=== PATIENT | female | born 1995 | race Caucasian/White ===

== ENCOUNTER 2024-09-04 09:22 | Emergency (ER) | payer MEDICARE, MEDICAID, SELFPAY ==
--- NOTE | 2024-09-04 09:23 | ED.EXTPRO ---
HPI - Extremity Problem General Chief complaint: Extremity Injury, Upper Stated complaint: pain in both wrist Time Seen by Provider: 09/04/24 09:23 Source: patient Mode of arrival: ambulatory Limitations: no limitations History of Present Illness HPI Narrative: Cherelle is a 29-year-old female patient presenting to the clinic today with complaints of bilateral wrist pain x2 days. She reports has a appointment with behavioral geneticist next Monday for the 1st time. States she is being worked up for rheumatoid arthritis. Today he she states that she has had bilateral wrist pain right greater than left starting on Monday. Has pain and swelling to the right wrist. No injury. Is disabled and and just started a new job. Denies any radiation of pain up the arm or in the hand. Rates the pain currently an 11/17. Has not taken anything for her symptoms Related Data Home Medications ?Medication ?Instructions ?Recorded ?Confirmed ?Last Taken ?Type buspirone 10 mg tablet mg 09/04/24 Unknown History duloxetine 20 mg capsule,delayed mg PO 09/04/24 Unknown History release lisinopril 5 mg PO DAILY 09/04/24 Unknown History loratadine 10 mg tablet (Allergy 10 mg PO DAILY 09/04/24 Unknown History Relief (loratadine)) rizatriptan 10 mg disintegrating mg 09/04/24 Unknown History tablet rosuvastatin 5 mg tablet mg 09/04/24 Unknown History semaglutide 0.25 mg or 0.5 mg (2 mg subcut 09/04/24 Unknown History mg/3 mL) subcutaneous pen injector (Ozempic) trazodone 50 mg tablet mg 09/04/24 Unknown History Allergies Allergy/AdvReac Type Severity Reaction Status Date / Time adhesive Allergy Mild Rash Verified 09/04/24 09:46 amoxicillin (From Augmentin) Allergy Mild Rash Verified 09/04/24 09:46 atorvastatin Allergy Mild Rash Verified 09/04/24 09:46 clavulanic acid (From Allergy Mild Rash Verified 09/04/24 09:46 Augmentin) latex Allergy Mild Rash Verified 09/04/24 09:46 clonidine AdvReac Mild Hypotension Verified 09/04/24 09:46 prazosin AdvReac Mild Hypotension Verified 09/04/24 09:46 Review of Systems Review of Systems: Pertinent positives per HPI. Patient denies any fever, chills, rash, headache, visual changes, dizziness, cough, shortness of breath, chest pain, palpitations, nausea, vomiting, diarrhea, constipation, abdominal pain, or any urinary issues. PMFSH Comments At the time of my signature, I reviewed and agree with the nursing past medical, surgical, social, and family history. There is no relevant family history pertinent to the patient complaint. Exam Narrative: General: Well-developed, well nourished, in no apparent distress Head: Normocephalic, atraumatic. Cardio: Regular rate and rhythm, s1 and s2 normal, no murmur appreciated. Resp: Clear to auscultation bilaterally, no rhonchi, rales, wheezing or rubs. Musculoskeletal: No deformity, tender to palpation over dorsal/volar bilateral wrist, worse on the right, range of motion of the right wrist very limited due to pain, positive Tinel's on the ulnar nerve to the right wrist, left wrist range of motion grossly normal, muscle strength strong and equal, peripheral pulse strong, no edema, no cyanosis, normal gait and station Course Course Emergency Course: Portions of this record may have been created with voice recognition software. Level of Care: Express Care Visit Vital Signs Vital signs: Vital Signs Temperature 36.3 C L 09/04/24 09:35 Pulse Rate 88 09/04/24 09:35 Respiratory Rate 18 09/04/24 09:35 Blood Pressure 118/81 09/04/24 09:35 Pulse Oximetry 100 09/04/24 09:35 Oxygen Delivery Room Air 09/04/24 09:35 Temperature 36.3 C L 09/04/24 09:35 Pulse Rate 88 09/04/24 09:35 Respiratory Rate 18 09/04/24 09:35 Blood Pressure 118/81 09/04/24 09:35 Pulse Oximetry 100 09/04/24 09:35 Oxygen Delivery Room Air 09/04/24 09:35 Vital signs reviewed MDM - Extremity (Nontraumatic) MDM Narrative Medical decision making narrative: At the time of visit patient is resting comfortably on the exam table. Patient appears to be nontoxic. Plan: I suspect patient has wrist tendinitis versus arthralgia of the wrist. Prescription for Medrol Dosepak was sent to the pharmacy. Supportive measures were discussed with the patient and they voiced understanding discharge instructions and agrees to treatment plan. Return precautions reviewed Differential Diagnosis Differential diagnosis: Likely gout and other (Tendinitis, arthralgia, carpal tunnel) Discharge Plan Discharge Clinical Impression: Acute pain of both wrists Patient Disposition: Home Condition: Stable Instructions: Antibiotic Form, Arthralgia (ED) Additional Instructions: Rest, ice, elevate, and wear cock-up wrist splint as discussed Tylenol/motrin for pain as discussed. May take Medrol Dosepak as prescribed May apply Aspercreme, blue emu, or lidocaine to the affected area to help alleviate pain Follow up with your PCP if symptoms persist more than 1 week. Patient Language: Croatian Prescriptions: New methylprednisolone [Medrol (Barry)] 4 mg tablets,dose pack See Rx Instructions PO .COMPLEX Qty: 21 0RF Rx Instructions: orally per package directions Follow-up/Referrals: Alfonso,Dima Hoang DO [Primary Care Provider] - Time of Disposition: 09:45 Quality NIHSS Nursing Documentation ED NIHSS nursing documentation: reviewed/agree
[2024-09-04 09:35] VITALS: BP 118/81; PULSE 88; RESP 18; TEMP 36.3; O2SAT 100
== END 2024-09-04 10:00 | disposition home or self-care (01) ==
PROVIDERS: Emergency Provider Nurse Practitioner Family; PCP Family Medicine
DX: M25.531 Pain in right wrist (principal); M25.532 Pain in left wrist; I10 Essential (primary) hypertension; E78.00 Pure hypercholesterolemia, unspecified; J45.909 Unspecified asthma, uncomplicated; K21.9 Gastro-esophageal reflux disease without esophagitis; M19.90 Unspecified osteoarthritis, unspecified site; E28.2 Polycystic ovarian syndrome
CPT/HCPCS: 99203; G0463

== ENCOUNTER 2024-09-18 11:37 | Outpatient (CLI) | payer MEDICARE, MEDICAID, SELFPAY ==
--- OUTSIDE RECORDS SUMMARY | 2024-09-18 13:55 | XMS_ITS | Clinical Summary ---
Author Organization [facility] Address [address] [place] [address] Care Team Providers Care Workers' Compensation Claims Supervisor Name Role Phone Unavailable Primary Care Provider Unavailabl e Allergies Active Allergy Reactions Criticality Noted Date Comments Adhesive Rash Low 01/12/2022 Amoxicillin-Pot Clavulanate Rash Medium 01/13/20 22 Clonidine Confusion Medium 01/12/2022 Latex Rash Low 01/12/2022 Prazosin Hypotension Medium 01/12/2022 Medications albuterol sulfate 90 mcg/actuation aero powdr breath act w/sensor daily. 12/15/2021 Active loratadine (CLARITIN ORAL) daily. 08/10/2021 Act clay flash glucose scanning reader ([employer] 14 Day [place]) Misc daily. 07/13/2021 Active busPIRone (BUSPAR) 30 mg Tablet 2 times daily. 01/10/2022 Active lamoTRIgine 25 mg tablet Take 25 mg by mouth daily. Active metoprolol succinate (Toprol XL) 25 mg Extended Release 24 hour tablet Take 1 Tablet (25 mg) by mouth daily. 30 Tablet 5 03/28/2022 Active cariprazine (Vraylar) 4.5 mg Capsule capsule Take by mouth daily. Active Active Problems No known active problems Immunizations Immunization Administration Dates Next Due ([employer])(12 YR UP) COVID-19 VACCINE - EMERGENCY USE AUTHORIZATION, MRNA, [id number](PF) 30 MCG/0.3 ML IM SUSP 04/10/2021,10/24/2020 Family History Medical History Relation Name Comments Heart Disease Maternal Grandfather CAD Heart Disease Maternal Grandmother CAD Heart Disease Mother afib, SVT Relation Name Status Comments Maternal Grandfather Maternal Grandmother Mother Alive Social History Tobacco Use Types Packs/Day Years Used Date Smoking Tobacco: Former Cigarettes Tobacco Cessation:Counseling Given: Not Answered Comments No Sex and Gender Information Value Date Recorded Sex Assigned at Female 06/27/2023 10:26 AM CDT Legal Sex Female 11:19 PM CDT Gender Identity Female 06/27/2023 10:26 AM CDT Sexual Orientation Lesbian or Michel 06/27/2023 10 :26 AM CDT Last Filed Vital Signs Vital Sign Reading Time Taken Comments Blood Pressure 128/84 06/09/2022 4:35 PM [employer] Pulse 82 06/09/2022 4:35 PM [employer] Temperature 36.7 C (98 F) 02/18/2022 8:16 AM [employer] Respiratory Rate 20 02/18/2022 8:16 AM [employer] Oxygen Saturation 98% 02/18/2022 8:16 AM [employer] Inhaled Oxygen Concentration - - Weight 115 kg (253 lb 9.6 oz) 06/09/2022 4:35 PM [employer] Height 170.2 cm (5' 7) 06/09/2022 4:35 PM [employer] Body Mass Index 39.72 06/09/2022 4:35 PM [employer]ANT Plan of Treatment Health Maintenance Due Date Last Done Comments DIABETES ANNUAL FOOT EXAM 2014 DIABETES ANNUAL RETINAL EXAM 2014 DIABETES MICROALBUMIN ANNUAL SCREEN 2014 LDL CHOLESTEROL ANNUAL 2014 CERVICAL CANCER SCREENING 2017 HPV/Cotest (21-29) 2017 PAP SMEAR 2017 DTAP/TDAP/TD VACCINES (7 - T d or Tdap) 11/18/2017 11/19/2007, 05/14/2001, 09/15/1997, Additional history exists DIABETES HBA1C Q 6 MONTHS 01/12/2022 07/13/2021 INFLUENZA VACCINE (#1) 2023 04/20/2022 COVID-19 Vaccine (2023-2 5 season) 2023 04/10/2021, 10/24/2020 HEPATITIS B VACCINES Completed 06/23/1997, 1996, 1996, Additional history exists HPV VACCINES Completed 09/16/2008, 11/19/2007 Insurance [facility] MEDICAID [place]
--- OUTSIDE RECORDS SUMMARY | 2024-09-18 13:55 | XMS_ITS | Clinical Summary ---
Author Organization [facility] er Address [address] [place] [address] Care Team Providers Care Wood Heel Finisher Name Role Phone Dima Hamilton DO Primary Care Provider Allergies Active Allergy Reactions Criticality Noted Date Comments Adhesive Rash Medium 01/12/2022 Amoxicillin-Pot Clavulanate Atorvastatin Rash Medium 07/18/2024 Clonidine Hypotension High 03/14/2022 Latex Unknown 09/27/2022 Prazosin Hypotension High 03/14/2022 Piperacillin-Tazobactam Rash Medium 11/12/2023 Medications loratadine (Claritin) 10 mg tablet Take 1 tablet (10 mg total) by mouth daily 90 tablet 3 01/13/20 23 Active lisinopriL (PRINIVIL,ZESTRIL) 5 mg tabletIndications: Type 2 diabetes mellitus without complication, without long-term current use of insulin (HCC) TAKE 1 TABLET(5 MG) BY MOUTH DAILY 90 tablet 1 03/11/20 24 Active semaglutide (OZEMPIC) 0.25 mg or 0.5 mg (2 mg/3 mL) pen injector injectionIndicatio ns:Type 2 diabetes mellitus with other specified complication, without long-term current use of insulin (HCC) Inject 0.25 mg under the skin every 7 days 3 mL 2 06/28/19 25 Active rizatriptan WHEEL AND CASTER REPAIRER (MAXALT-WHEEL AND CASTER REPAIRER) 10 mg disintegrating tabletIndications: Migraine without aura and without status migrainosus, not intractable DISSOLVE 1 TABLET(10 MG) ON THE TONGUE 1 TIME NEEDED FOR MIGRAINE. MAY REPEAT IN 2 HOURS IF UNRESOLVED. DO NOT EXCEED 30 MG IN 24 HOURS 9 tablet 1 07/09/19 25 Active busPIRone (BUSPAR) 10 mg tablet Take 1 tablet (10 mg total) by mouth 2 (two) times a day 08/10/19 25 Active rosuvastatin (CRESTOR) 5 mg tablet Take 1 tablet (5 mg total) by mouth daily Active DULoxetine DR (CYMBALTA) 20 mg capsule Take 1 capsule (20 mg total) by mouth daily Active traZODone (DESYREL) 50 mg tablet Take 1 tablet (50 mg total) by mouth nightly Active semaglutide (OZEMPIC) 0.25 mg or 0.5 mg(2 mg/1.5 mL) pen injector injection Inject 0.25 mg under the skin every 7 days Active hydroxychloroquine (PLAQUENIL) 200 mg tablet Take 2 tablets (400 mg total) by mouth daily 180 tablet 1 09/16/19 25 025 Active flash glucose scanning reader (FreeStyle Aidan 14 Day [place]) miscIndications:Ty pe 2 diabetes mellitus without complication, without long-term current use of insulin (HCC) Inject 1 each under the skin daily 2 each 1 10/18/19 23 025 Discontin ued(Patie nt Reported) Qelbree 200 mg capsule,extended release 24hr Take 1 capsule (200 mg total) by mouth daily 06/14/19 24 025 Discontin ued(Patie nt Reported) QUEtiapine XR (SEROquel XR) 50 mg tablet extended release 24 hr Take 1 tablet (50 mg total) by mouth daily 025 Discontin ued(Patie nt Reported) FreeStyle Aidan 14 Day Sensor kitIndications:Typ e 2 diabetes mellitus without complication, without long-term current use of insulin (HCC) Inject 1 each under the skin every 14 (fourteen) days 2 kit 11/06/19 24 025 Discontin ued(Patie nt Reported) blood-glucose meter,continuous (FreeStyle Aidan 3 [place]) misc Use to check blood sugars up to three times daily 1 each 11/07/19 24 025 Discontin ued(Patie nt Reported) albuterol HFA (ProAir HFA) 90 mcg/actuation inhaler Inhale 2 puffs every 4 (four) hours as needed for wheezing or shortness of breath 18 g 03/26/20 24 025 Discontin ued(Patie nt Reported) albuterol 2.5 mg /3 mL (0.083 %) nebulizer solution Take 3 mL (2.5 mg total) by nebulization every 6 (six) hours as needed for wheezing 75 mL 06/07/19 25 025 Discontin ued(Patie nt Reported) blood-glucose sensor (Epicsell Aidan 3 Plus Sensor) device USE TO CHECK BLOOD SUGAR AND CHANGE EVERY 15 DAYS DIRECTED 3 each 1 06/28/19 25 025 Discontin ued(Patie nt Reported) busPIRone (BUSPAR) 15 mg tablet Take 1 tablet (15 mg total) by mouth 2 (two) times a day 06/07/19 25 025 Discontin ued(Patie nt Reported) celecoxib (CeleBREX) 100 mg capsule TAKE 1 CAPSULE(100 MG) BY MOUTH TWICE DAILY 180 capsule 1 06/29/19 25 025 Discontin ued(Patie nt Reported) viloxazine (Qelbree) 100 mg capsule,extended release 24hr Take 100 mg by mouth daily Take with 200 mg to total 300 025 Discontin ued(Patie nt Reported) predniSONE (DELTASONE) 20 mg tablet Take 1 tablet (20 mg) by mouth daily 5 tablet 08/09/19 25 025 Discontin ued(Patie nt Reported) meloxicam (MOBIC) 7.5 mg tabletIndications: Pain of toe of left foot,Acute right ankle pain,Right foot pain,Chronic bilateral low back pain without sciatica Take 1 tablet (7.5 mg total) by mouth 2 (two) times a day as needed for pain 60 tablet 1 08/13/19 25 025 Discontin ued(Patie nt Reported) indomethacin (INDOCIN) 25 mg capsule Take 1 capsule (25 mg total) by mouth 3 (three) times a day as needed for pain (pain) 30 capsule 08/29/19 25 025 Discontin ued(Patie nt Reported) Active Problems Problem Noted Date Diagnosed Date Chronic bilateral low back pain without sciatica 12/07/2023 Mixed hyperlipidemia 10/24/2022 Overview (06/27/2024): Chronic, stable condition Did not tolerate Lipitor Start lower dose Crestor (June 2024) Moderate episode of recurrent major depressive d isorder 10/17/2022 Overview (11/06/2023): Condition followed by Psychiatry is overall stable Continue same medications Generalized anxiety disorder 10/17/2022 Overview (11/06/2023): Chronic condition followed by Psychiatry is overall stable Continue same medications DDD (degenerative disc disease), lumbar 10/18/19 23 Overview (12/07/2023): Chronic low back pain Completed physical therapy Assessment & Plan (12/07/2023 9:01 AM CDT): MRI scheduled for late December 2023 Assessment & Plan (10/17/2022 3:09 PM CDT): Has completed physical therapy in the past. Recommend referral to pain management for further evaluation. Has appointment with Neurology in . Discussed with patient risk of long-term use of meloxicam. May utilize baclofen as needed. May also utilize [id number] icy Hot with lidocaine patches. Borderline personality disorder 10/17/2022 Type 2 diabetes mellitus 10/17/2022 Overview (07/15/2024): Diabetes not requiring insulin with morbid obesity (BMI 38) and microalbuminuria She is on an ERICK-I A1c 7.0 in October 2022 A1c 9.5 in June 2024 Eye exam early 2023 Try Ozempic (June 2024) Assessment & Plan (10/17/2022 3:17 PM CDT): Continue metformin however will add Ozempic 0.25 mg every 7 days. This may help with weight loss which may also help with patient's back pain. Patient up-to-date on diabetic eye exam. Will fax for records release. Declines diabetic foot exam today. Patient will follow-up in 3 months for further evaluation and treatment Spondylosis, lumbosacral 10/17/2022 Overview (12/07/2023): Chronic low back pain Assessment & Plan (12/07/2023 9:01 AM CDT): MRI scheduled late December 2023 Vitamin D deficiency 10/17/2022 Overview (11/06/2023): Chronic, stable condition on replacing Continue same medications Morbid obesity 10/17/2022 Overview (07/15/2024): BMI 36 with DM, dyslipidemia Weight management discussed Assessment & Plan (10/17/2022 2:47 PM CDT): BMI Follow-up includes: education provided. PCOS (polycystic ovarian syndrome) 08/18/2008 Benign essential hypertension 08/18/2008 Overview (11/06/2023): Doing well not requiring medication at this time Assessment & Plan (10/17/2022 3:09 PM CDT): No recent noted hypertension. Patient will possibly need to started on lisinopril 2.5 mg daily for renal protection against diabetes. Resolved Problems Problem Noted Date Diagnosed Date Resolved Date Routine physical examination 11/08/2023 09/11/2024 Overview (11/08/2023): New: November 06, 2023 Encounters Date Type Department Care Team Description 09/16/2024 ACO Quality [facility] Accountable Care Organization [address] [place] [id number] Kristin Burciaga 09/16/[address] [address] Kristin Burciaga Chart Review (error) 09/12/2024 Telephone [facility] Primary Care [address] [place] [address] [address] [place] [phone] Dima Hamilton, Referral Request 09/10/2024 4:20 PM CDT Lab [facility] [address] [address] [id number] Pain in both hands 09/10/2024 3:51 PM CDT - 09/10/2024 11:59 PM CDT Hospital Encounter [facility] Imaging [address] [address] [id number] Pain in both hands Discharge Disposition: Discharge to home or self care 09/10/2024 3:20 PM CDT Office Visit [facility] Rheumatology [address] [facility] Medical Office Building [address] [place] [phone] Rachel Hirsch, LAURA Pain in both hands; Elevated sed rate 08/19/2024 11:00 AM CDT Therapy [facility] Medical Office Bldg 1 OP Occupational Therapy [address] [place] [address] [address] [place] [address] Ade Eric OT Pain in both hands (Primary Dx); Sensory processing difficulty 08/19/2024 Telephone [facility] Primary Care [address] [place] [address] [address] [place] [phone] Dima Hamilton, Insurance Referrals 08/13/2024 1:00 PM CDT Clinical Support [facility] Nutrition Counsel[facility] [address] [place] [address] Type 2 diabetes mellitus with other specified complication, without long-term current use of insulin (HCC) (Primary Dx) 08/12/2024 11:15 AM CDT Office Visit [facility] Primary Care [address] [place] [address] [address] [place] [address] Dima Hamilton DO Pain of toe of left foot (Primary Dx); Acute right ankle pain; Right foot pain; Chronic bilateral low back pain without sciatica 08/12/2024 10:11 AM CDT - 08/12/2024 11:59 PM CDT Hospital [facility] MOB 1 DIAG IMG [address] [place] [id number] Acute right ankle pain; Right foot pain; Pain of toe of left foot Discharge Disposition: Discharge to home or self care 08/12/2024 Results Follow-Up [facility] Primary [facility] [address] [place] [phone] Dima Hamilton DO XR Ankle Right 3+ Vw 08/07/2024 2:00 PM CDT Therapy [facility] Medical Office Bldg 1 OP Occupational Therapy [address] [place] [phone] Yaneth Chong, OT Pain in both hands (Primary Dx); Sensory processing difficulty 08/05/2024 11:00 AM CDT [facility] Medical Office Bldg 1 OP Occupational Therapy [address] [place] [address] Ade Eric, OT Pain in both hands (Primary Dx) 07/29/2024 8:00 AM CDT Therapy [facility] Medical Office Bldg 1 OP Occupational Therapy [address] [place] [phone] Ade Eric, OT Pain in both hands (Primary Dx) 07/24/2024 2:00 PM CDT Therapy [facility] Medical Office Bldg 1 OP Occupational Therapy [address] [place] [address] Ade Eric, OT Pain in both hands (Primary Dx); Sensory processing difficulty 07/23/2024 Results Follow-Up [facility] [address] [place] [phone] Dima Hamilton DO Rheumatoid factor 07/22/2024 12:50 PM CDT Lab [facility] Medical Office Building [address] [place] [address] Pain in both hands; Elevated sed rate 07/22/2024 Letter (Out) [facility] Primary Care [address] [place] [phone] 07/20/2024 Plan of Care Documentation [facility] Medical Office Bldg 1 OP Occupational Therapy [address] [place] [phone] 07/17/2024 1:00 PM CDT Therapy [facility] Medical Office Bldg 1 OP Occupational Therapy [address] [place] [phone] Yaneth Chong OT Pain in both hands; Sensory processing difficulty 07/15/2024 11:00 AM CDT Office Visit [facility] Primary [facility] [address] [place] [phone] Dima Hamilton DO Moderate episode of recurrent major depressive disorder (HCC) (Primary Dx); Generalized anxiety disorder; Benign essential hypertension; Type 2 diabetes mellitus with other specified complication, without long-term current use of insulin (HCC); Morbid obesity (HCC); Mixed hyperlipidemia; Pain in both hands; Sensory processing difficulty 07/15/2024 ACO Medication Access [facility] Accountable Care Organization [address] [place] [address] Catie Cancino CPhT 07/09/2024 3:00 PM CDT - 07/09/2024 11:59 PM CDT Hospital Encounter [facility] Diabetes Educ [address] [place] [address] Type 2 diabetes mellitus with other specified complication, without long-term current use of insulin (HCC) Discharge Disposition: Discharge to home or self care 07/09/2024 Letter (Out) [facility] [address] [place] [phone] 07/01/2024 Telephone [facility] [address] [place] [phone] Dima Hamilton DO 07/01/2024 Telephone [facility] [address] [place] [phone] Dima Hamilton DO 06/27/2024 9:45 AM CDT Office Visit [facility] [address] [place] [phone] Dima Hamilton, Type 2 diabetes mellitus with other specified complication, without long-term current use of insulin (HCC) (Primary Dx); Morbid obesity (HCC); Benign essential hypertension; Mixed hyperlipidemia; Generalized anxiety disorder 06/20/2024 [facility] [address] [address] Sofya Singletary LPN 06/19/2024 9:45 AM CDT Lab [facility] Office Building [address] [place] [phone] Type 2 diabetes mellitus without complication, without long-term current use of insulin (HCC); Mixed hyperlipidemia 06/19/2024 Results Follow-Up [facility] [address] [place] [phone] Dima Hamilton, Hemoglobin A1c, Lipid panel, Comprehensive metabolic panel, Additional followed-up results: 2 06/18/2024 ACO Quality [address] [address] Kristin Burciaga from Last 3 Months Immunizations Immunization Administration Dates Next Due DTP 1996,1996,1996 DTaP 05/14/2001,09/15/1997 DTaP 5 Pertussis 05/14/2001,09/15/1997 HPV, Quadrivalent 09/16/2008,11/19/2007 HPV, Unspecified 09/16/2008,11/19/2007 Hep A, Pediatric 06/27/2003,11/25/2002 Hep B, Unspecified 06/23/1997, 7,1996,05/22 Hib (PRP-T) 09/15/1997, 7,1996,07/22 IPV 05/14/2001 Influenza, Trivalent, Cell Culture-based MDCK, Preservative Free, Antibiotic Free, Intramuscular 05/29/2024 Influenza, Trivalent, IM (MDV) 04/20/2022 Influenza, Unspecified 05/28/2024,2023(Deferred: Patient Refused),04/10/2022,01/28/2010 MMR 05/14/2001,06/23/1997 Meningococcal Conjugate (Menveo) 08/07/2015 Meningococcal MCV4P (Menactra) 08/07/2015 OPV 06/23/1997,1996,1996 PPD TEST 10/04/2022 Tdap 05/29/2024,11/19/2007 Varicella 05/29/2024,04/25/2022,11/25/2002 Surgical History Surgery Date Site/Laterality Comments TYMPANOSTOMY TUBE PLACEMENT TONSILLECTOMY AND ADENOIDECTOMY UPPER GASTROINTESTINAL ENDOSCOPY Medical History Medical History Date Comments PTSD (post-traumatic stress disorder) Polycystic ovary disease Asthma Back pain Spinal stenosis Depression Diabetes mellitus (HCC) Peptic ulceration Menstrual problem Family History Medical History Relation Name Comments Cancer Father Ed Alzheimer's disease Maternal Grandfather Shady Arthritis Maternal Grandfather Shady Cancer Maternal Grandfather Shady Depression Maternal Grandfather Shady Heart disease Maternal Grandfather Shady Hypertension Maternal Grandfather Shady Kidney disease Maternal Grandfather Shady Stroke Maternal Grandfather Shady Arthritis Maternal Grandmother Devorah Asthma Maternal Grandmother Devorah Diabetes Maternal Grandmother Devorah Heart disease Maternal Grandmother Devorah Hypertension Maternal Grandmother Devorah Kidney disease Maternal Grandmother Devorah Miscarriages / Stillbirths Maternal Grandmother Devorah Stroke Maternal Grandmother Devorah Vision loss Maternal Grandmother Devorah Arthritis Mother Lizzie Cancer Mother Lizzie Depression Mother Lizzie Diabetes Mother Lizzie Hearing loss Mother Lizzie Heart disease Mother Lizzie Hypertension Mother Lizzie Kidney disease Mother Lizzie Mental illness Mother Lizzie Miscarriages / Stillbirths Mother Lizzie Obesity Mother Lizzie Rashes / Skin problems Mother Lizzie Stroke Mother Lizzie Cancer Paternal Grandmother Jacqueline Diabetes Paternal Grandmother Jacqueline Stroke Paternal Grandmother Jacqueline Relation Name Status Comments Father Ed Maternal Grandfather Shady Maternal Grandmother Devorah Mother Lizzie Alive Paternal Grandmother Jacqueline Social History Tobacco Use Types Packs/Day Years Used Date Smoking Tobacco: Never Smokeless Tobacco: Never Tobacco Cessation:Counseling Given: Not Answered AUDIT-C Answer Date Recorded Q1: How often do you have a drink containing alc ohol? Monthly or less 09/10/2024 Q2: How many drinks containi ng alcohol do you have on a typical day when you are drinking? 1 or 2 09/10/2024 Q3: How often do you have si x or more drinks on one occasion? Never 09/10/2024 PHQ-2 Answer Date Recorded PHQ-2 Total Score (If total score is 3 or more points, staff should administer the PHQ-9) 6 06/27/2024 PHQ-9 Answer Date Recorded PHQ-9 Total Score 21 06/27/2024 Personal Safety Answer Date Recorded Have you ever been in or are you currently in a harmful physical or emotional relationship or is someone making you feel afraid or unsafe? Denies 06/07/2024 Comments No Sex and Gender Information Value Date Recorded Sex Assigned at Not on file Legal Sex Female 11:04 PM PAYMENT POSTER Gender Identity Female 05/29/2024 7:45 PM PAYMENT POSTER Sexual Orientation Lesbian 05/29/2024 7: 45 PM PAYMENT POSTER Obstetrics History Last Filed Vital Signs Vital Sign Reading Time Taken Comments Blood Pressure 97/65 09/10/2024 3:04 PM CDT Pulse 80 09/10/2024 3:04 PM CDT Temperature 36.4 C (97.6 F) 09/10/2024 3:04 PM CDT Respiratory Rate 18 08/12/2024 10:44 AM CDT Oxygen Saturation 98% 09/10/2024 3:04 PM CDT Inhaled Oxygen Concentration - - Weight 106 kg (233 lb 11.2 oz) 09/10/2024 3:04 P M CDT Height 170.2 cm (5' 7) 09/10/2024 3:04 PM CDT Body Mass Index 36.6 09/10/2024 3:04 PM CDT Plan of Treatment Health Maintenance Due Date Last Done Comments Cervical Cancer Screening 1996 Pneumococcal vaccine <65 (1 of 2 - PCV) 2015 Covid-19 Vaccine (3 - Pfizer risk series) 05/08/2021 04/10/2021, 10/24/2020 Zoster Vaccine (1 of 2) 07/24/2024 Albumin Creatinine Ratio, Urine 11/05/2024 , 10/18/2022 Regular Well Visit/Exam 18-64 11/05/2024 11/06/2023 Hemoglobin A1C 12/20/2024 06/19/2024, 10/09, 10/18/2022 Lipid Panel 06/19/2025 06/19/2024, 10/09, 10/18/2022 Depression Screening 06/27/2025 06/27/2024, 06/27/2024, 11/06/2023, Additional history exists Foot Exam 06/27/2025 06/27/2024 eGFR 09/10/2025 09/10/2024, 06/08, 06/07/2024, Additional history exists Dilated Eye Exam 12/25/2025 12/26/2023 DTaP/Tdap/Td Vaccine (8 - Td or Tdap) 05/29/2034 05/29/2024, 11/19/2007, 05/14/2001, Additional history exists HPV Vaccines Completed 09/16/2008, 12/2008, 11/19/2007, Additional history exists Influenza Vaccine Completed 05/29/2024, , 04/20/2022, Additional history exists Varicella Vaccines Completed 05/29/2024, 0 04/25/2022, 11/25/2002 Hepatitis B Screening Completed 09/10/2024 , 06/23/1997, 1996, Additional history exists Hepatitis C Screening Completed 09/10/2024, 024 Procedures Procedure Name Priority Date/Time Associated Diagnosis Comments XR HAND LEFT 2 VIEWS Schedule Routine, Read Routine (OP Routine) 09/10/2024 3:58 PM CDT Pain in both hands XR HAND RIGHT 2 VIEWS Schedule Routine, Read Routine (OP Routine) 09/10/2024 3:58 PM CDT Pain in both hands EGFR Routine 09/10/2024 3:46 PM CDT Pain in both hands DIFFERENTIAL AUTO Routine 09/10/2024 3:4 6 PM CDT Pain in both hands CYCLIC CITRUL PEPTIDE ANTIBODY, IGG Routine 09/10/2024 3:46 PM CDT Pain in both hands CBC WITH AUTO DIFFERENTIAL Routine 09/10/2024 3:46 PM CDT Pain in both hands COMPREHENSIVE METABOLIC PANEL Routine 09/10/2024 3:46 PM CDT Pain in both hands CRP (ACUTE PHASE) Routine 09/10/2024 3:4 6 PM CDT Pain in both hands ERYTHROCYTE SEDIMENTATION RATE Routine 09/10/2024 3:46 PM CDT Pain in both hands G6PD QUALITATIVE WITH REFLEX TO QUANTITATIVE Routine 09/10/2024 3:46 PM CDT Pain in both hands HEPATITIS PANEL, ACUTE Routine 09/10/2024 3:46 PM CDT Pain in both hands XR ANKLE RIGHT 3 OR MORE VIEWS Schedule LAURO, Read LAURO (Appt Today, Awaiting Results) 08/12/2024 11:00 AM CDT Acute right ankle pain Right foot pain XR FOOT LEFT 3 OR MORE VIEWS Schedule LAURO, Read LAURO (Appt Today, Awaiting Results) 08/12/2024 11:00 AM CDT Pain of toe of left foot XR FOOT RIGHT 3 OR MORE VIEWS Schedule LAURO, Read LAURO (Appt Today, Awaiting Results) 08/12/2024 11:00 AM CDT Acute right ankle pain Right foot pain RHEUMATOID FACTOR Routine 07/22/2024 12:52 PM CDT Pain in both hands Elevated sed rate EGFR Routine 06/19/2024 9:54 AM CDT Type 2 diabetes mellitus without complication, without long-term current use of insulin (HCC) Mixed hyperlipidemia CHOLESTEROL, LDL, DIRECT Routine 06/19/2024 9:54 AM CDT Mixed hyperlipidemia COMPREHENSIVE METABOLIC PANEL Routine 06/19/2024 9:54 AM CDT Type 2 diabetes mellitus without complication, without long-term current use of insulin (HCC) Mixed hyperlipidemia LIPID PANEL Routine 06/19/2024 9:54 AM CDT Mixed hyperlipidemia HEMOGLOBIN A1C Routine 06/19/2024 9:54 AM CDT Type 2 diabetes mellitus without complication, without long-term current use of insulin (HCC) DIABETIC EYE EXAM Routine 12/26/2023 ALBUMIN CREATININE RATIO, URINE Routine 11/06/2023 10:16 AM CDT Type 2 diabetes mellitus with other specified complication, without long-term current use of insulin (HCC) from Last 3 Months or Most Recently Relevant to Health Maintenance Results * XR Hand Right 2 Views (09/10/2024 3:58 PM CDT) Anatomical Region Laterality Modality Upper Extremities, Hand Right Computed Radiography 09/10/2024 4:13 PM CDT Impressions 09/10/2024 4:13 PM CDT 1. Questionable mild periarticular osteopenia involving the bilateral 2nd through 5th MCP and PIP joints is nonspecific but can be seen in inflammatory arthritis. 2. Otherwise, no joint space narrowing or osseous erosions. Electronically signed by: Boogie Amaya D.O. Narrative 09/10/2024 4:13 PM CDT EXAMINATION: XR HAND RIGHT 2 VIEWS, XR HAND LEFT 2 VIEWS HISTORY: pain COMPARISON: None FINDINGS: No acute fracture or dislocation. The joint spaces are preserved. Questionable mild periarticular osteopenia involving the bilateral 2nd through 5th metacarpophalangeal and proximal interphalangeal joints. No discrete osseous erosions. Procedure Note Boogie Amaya DO - 09/10/2024 EXAMINATION: XR HAND RIGHT 2 VIEWS, XR HAND LEFT 2 VIEWS HISTORY: pain COMPARISON: None FINDINGS: No acute fracture or dislocation. The joint spaces are preserved. Questionable mild periarticular osteopenia involving the bilateral 2nd through 5th metacarpophalangeal and proximal interphalangeal joints. No discrete osseous erosions. IMPRESSION: 1. Questionable mild periarticular osteopenia involving the bilateral 2nd through 5th MCP and PIP joints is nonspecific but can be seen in inflammatory arthritis. 2. Otherwise, no joint space narrowing or osseous erosions. Electronically signed by: Boogie Amaya D.O. us Rachel Hirsch NP IMG XR PROCEDURES Final Result * XR Hand Left 2 Views (09/10/2024 3:58 PM CDT) Anatomical Region Laterality Modality Upper Extremities, Hand Left Computed Radiography 09/10/2024 4:13 PM CDT Impressions 09/10/2024 4:13 PM CDT 1. Questionable mild periarticular osteopenia involving the bilateral 2nd through 5th MCP and PIP joints is nonspecific but can be seen in inflammatory arthritis. 2. Otherwise, no joint space narrowing or osseous erosions. Electronically signed by: Boogie Amaya D.O. Narrative 09/10/2024 4:13 PM CDT EXAMINATION: XR HAND RIGHT 2 VIEWS, XR HAND LEFT 2 VIEWS HISTORY: pain COMPARISON: None FINDINGS: No acute fracture or dislocation. The joint spaces are preserved. Questionable mild periarticular osteopenia involving the bilateral 2nd through 5th metacarpophalangeal and proximal interphalangeal joints. No discrete osseous erosions. Procedure Note Boogie Amaya DO - 09/10/2024 EXAMINATION: XR HAND RIGHT 2 VIEWS, XR HAND LEFT 2 VIEWS HISTORY: pain COMPARISON: None FINDINGS: No acute fracture or dislocation. The joint spaces are preserved. Questionable mild periarticular osteopenia involving the bilateral 2nd through 5th metacarpophalangeal and proximal interphalangeal joints. No discrete osseous erosions. IMPRESSION: 1. Questionable mild periarticular osteopenia involving the bilateral 2nd through 5th MCP and PIP joints is nonspecific but can be seen in inflammatory arthritis. 2. Otherwise, no joint space narrowing or osseous erosions. Electronically signed by: Boogie Amaya D.O. us Rachel Hirsch NP IMG XR PROCEDURES Final Result * G6PD qualitative with reflex to quantitative (09/10/2024 3:46 PM CDT) G6PD Normal Normal Comment: Interp data: G6PD activity should be interpreted in the context of a patient's hematocrit. Hematocrit < 20% may lead to a falsely deficient result, while hematocrit > 50% may lead to a falsely normal result. Current interpretive data was last revised on 2019. Testing performed by: [facility], [address] [place]., [address] Blood 09/10/2024 3:46 PM CDT 09/10/2024 6:34 PM CDT Rachel Hirsch NP LAB BLOOD ORDERABLES Fi nal Result [facility] [address] [facility]. [place] [address] * eGFR (09/10/2024 3:46 PM CDT) eGFR >90 >=60 mL/min/1. 73 m2 Comment: Interpretive Data Reference Interval Normal >/= 90 mL/min/1.73m2 Mildly decreased* 60 - 89 mL/min/1.73m2 Mildly to moderately decreased 45 - 59 mL/min/1.73m2 Moderately to severely decreased 30 - 44 mL/min/1.73m2 Severely decreased 15 - 29 mL/min/1.73m2 Kidney Failure < 15 mL/min/1.73m2 *Relative to young adult level Estimated glomerular filtration rate is determined by the 2020 CKD-EPI equation recommended by the National Kidney Foundation (A Unifying Approach to GFR Estimation: Recommendations of the NKF-ASK Task Force on Reassessing the Inclusion of Race in Diagnosing Kidney Disease, JASN 2020). The CKD-EPI equation should not be used for patients with unstable renal function and has not been validated in children and those over 70. Current interpretive data was last reviewed 2021. Blood 09/10/2024 3:46 PM CDT 09/10/2024 3:58 PM CDT us Rachel Hirsch PEGGER LAB BLOOD ORDERABLES Fi nal Result DION VALADEZ [address] [address] [place] [address] * (ABNORMAL) Differential, auto (09/10/2024 3:46 PM CDT) Neutrophil abs 6.53(H) 1.50 - 6.50 K/cumm Imm gran abs 0.04 0.00 - 0.10 K/cumm [facility] Lymphocyte abs 2.72 0.80 - 3.30 K/cumm [facility] Monocyte abs 0.55 0.20 - 0.80 K/cumm [facility] Eosinophil abs 0.07 0.00 - 0.50 K/cumm [facility] Basophil abs 0.04 0.00 - 0.10 K/cumm [facility] Neutrophil pct 65.7 % [facility] Comment: Interpretive Data Percent cell count reference ranges are not reported, since discordance with absolute values may lead to misinterpretation of CBC data. Current Interpretive Data was last revised on 2017. Imm gran pct 0.4 % [facility] Comment: Interpretive Data Percent cell count reference ranges are not reported, since discordance with absolute values may lead to misinterpretation of CBC data. Current Interpretive Data was last revised on 2017. Lymphocyte pct 27.3 % [facility]ION [address] Comment: Interpretive Data Percent cell count reference ranges are not reported, since discordance with absolute values may lead to misinterpretation of CBC data. Current Interpretive Data was last revised on 2017. Monocyte pct 5.5 % [address] Comment: Interpretive Data Percent cell count reference ranges are not reported, since discordance with absolute values may lead to misinterpretation of CBC data. Current Interpretive Data was last revised on 2017. Eosinophil pct 0.7 % [facility] Comment: Interpretive Data Percent cell count reference ranges are not reported, since discordance with absolute values may lead to misinterpretation of CBC data. Current Interpretive Data was last revised on 2017. Basophil pct 0.4 % [facility] Comment: Interpretive Data Percent cell count reference ranges are not reported, since discordance with absolute values may lead to misinterpretation of CBC data. Current Interpretive Data was last revised on 2017. Blood 09/10/2024 3:46 PM CDT 09/10/2024 3:58 PM CDT Rachel Hirsch PEGGER LAB BLOOD ORDERABLES Fi nal Result Performing Organization Address [facility]/ZIP Co de Phone Number [facility] [address] [facility] [place] [address] * (ABNORMAL) CBC with auto differential (09/10/2024 3:46 PM CDT) WBC 9.95(H) 3.80 - 9.90 K/cumm Hgb 13.6 11.9 - 15.5 g/dL [facility] Hct 41.4 35.6 - 45.5 % [facility] Plt 284 150 - 400 K/cumm [facility] MPV 11.7 9.1 - 12.[address] [facility] RBC 4.77 3.90 - 5.20 M/cumm [facility] MCV 86.8 81.3 - 96.[address] [address] [facility] MCH 28.5 27.1 - 33.[address] [address] [facility] W[facility] MCHC 32.9 32.3 - 35.7 g/dL [facility] RDW CV 13.2 11.1 - 14.9 % [facility] RDW SD 41.1 35.7 - 48.1 fL [facility] NRBC abs 0.00 0.00 - 0.01 K/cumm [facility] Blood 09/10/2024 3:46 PM CDT 09/10/2024 3:58 PM CDT Rachel Hirsch NP LAB BLOOD ORDERABLES Fi nal Result Performing Organization Address [facility]/ZIP Co de Phone Number [facility] [address] [employer] [address] * (ABNORMAL) Cyclic citrul peptide antibody, IgG (09/10/2024 3:46 PM CDT) Pathologist [facility] CCP Ab >300.0(H) <=2.9 units/mL Comment: Interpretive data Negative: <3 units/mL Positive: > or equal to 3 units/mL Current interpretive data was last revised on 2016. Testing performed by: [facility], [address] [place]., [address] Blood 09/10/2024 3:46 PM CDT 09/10/2024 6:34 PM CDT Rachel Hirsch NP LAB BLOOD ORDERABLES Fi nal Result Performing Organization Address City/State/[facility] Co de Phone Number [facility] [address] [employer] [place] [address] * Hepatitis panel, acute Blood (09/10/2024 3:46 PM CDT) Pathologist [facility] Hep A IgM Nonreactive Nonreactive Comment: Interpretive Data: If Hep A IgM Ab is reported as Equivocal, a new sample should be drawn in two weeks for testing. Current interpretive data was last revised on 19. Testing performed by: [facility], [address] [place] [address]., [id number] Hep B core IgM Nonreactive Nonreactive [facility] Comment: Interpretive Data If HepB Core IgM Ab is reported as Equivocal, a new sample should be drawn in two weeks for testing. Current interpretive data was last revised on 19. Testing performed by: [facility], [address] [place] [address]., [id number] Hep C Ab Nonreactive Nonreactive [facility] Comment: Interpretive Data Nonreactive: Antibodies to HCV not detected. Does NOT exclude the possibility of recent exposure to HCV. Equivocal: Equivocal for HCV antibodies. Supplemental molecular testing will be automatically performed to determine infection status in accordance with current CDC screening recommendations. Reactive: Positive for HCV antibodies. This may represent current or past HCV infection. Supplemental molecular testing will be automatically performed to determine current infection status in accordance with current CDC screening recommendations. Interpretive data was last revised on 2019. Testing performed by: [facility], [address] [place] [address]., [id number] HepBsAg Nonreactive Nonreactive [facility] Comment:Testing performed by : [facility], [address] [place] [address]., [id number] Blood 09/10/2024 3:46 PM CDT 09/10/2024 7:33 PM CDT us Rachel Hirsch NP LAB MICROBIOLOGY - GENE RAL ORDERABLES Final Result Performing Organization Address [facility] de Phone Number [facility] [address] [facility] [address] [place] [address] * (ABNORMAL) Erythrocyte sedimentation rate (09/10/2024 3:46 PM CDT) Erythrocyte sedimentation rate 22(H) 1 - 20 mm/hr Blood 09/10/2024 3:46 PM CDT 09/10/2024 3:58 PM CDT us Rachel Hirsch NP LAB BLOOD ORDERABLES Fi nal Result Performing Organization Address [facility] de Phone Number [facility] [address] [facility] [address] [place] [address] * CRP (acute phase) (09/10/2024 3:46 PM CDT) CRP 3.8 <=10.0 mg/L Blood 09/10/2024 3:46 PM CDT 09/10/2024 3:58 PM CDT us Rachel Hirsch NP LAB BLOOD ORDERABLES Fi nal Result Performing Organization Address [facility] Co de Phone Number [facility] [address] [facility]. [place] [address] * Comprehensive metabolic panel (09/10/2024 3:46 PM CDT) Sodium 141 135 - 145 mmol/L Potassium, pl 4.1 3.3 - 4.9 mmol/L [facility] Chloride 99 97 - 110 mmol/L [facility] CO2 28 22 - 32 mmol/L [facility] Anion gap 14 2 - 15 mmol/L [facility] BUN 15 6 - 25 mg/dL [facility] Creatinine 0.77 0.60 - 1.10 mg/dL [facility] Glucose 183 70 - 199 mg/dL [facility] Comment: Interpretive Data Fasting glucose >/= 126 mg/dl is diagnostic for diabetes. Fasting is defined as no caloric intake for at least 8 hours. Fasting glucose between 100 mg/dl to 125 mg/dl is diagnostic of prediabetes. In a patient with classic symptoms of hyperglycemia or hyperglycemic crisis, a random glucose >/= 200 mg/dl is diagnostic for diabetes. In the absence of unequivocal hyperglycemia, results should be confirmed by repeat testing. The classification and Diagnosis of Diabetes Diabetes Care 202; 46: S19-S40. Current interpretive data was last revised 2022. Calcium 9.7 8.5 - 10.3 mg/dL [facility] Bilirubin, total 0.4 0.1 - 1.2 mg/dL [facility] Protein, pl 7.6 6.5 - 8.5 g/dL [facility] Albumin 4.2 3.5 - 5.0 g/dL [facility] Alk phos 117 40 - 130 Units/L [facility] ALT 42 7 - 45 Units/L [facility] AST 22 10 - 45 Units/L [facility] Blood 09/10/2024 3:46 PM CDT 09/10/2024 3:58 PM CDT Rachel Hirsch PEGGER LAB BLOOD ORDERABLES Fi nal Result Performing Organization Address [facility]/ZIP Co de Phone Number [facility] [address] [facility]. Department [place] [employer] [place] [address] * XR Foot Right 3+ Vw (08/12/2024 11:00 AM CDT) Anatomical Region Laterality Modality Lower Extremities, Foot Right Computed Radiography 08/12/2024 2:43 PM CDT Narrative 08/12/2024 2:47 PM CDT EXAM DESCRIPTION: XR FOOT RIGHT 3 OR MORE VIEWS; XR FOOT LEFT 3 OR MORE VIEWS; XR ANKLE RIGHT 3 OR MORE VIEWS REASON FOR STUDY: R foot/ankle pain Left ankle pain Intermittent increasing right dorsal foot pain radiating into ankle x 2 weeks, no injury FINDINGS: Three views right foot, three views right ankle and three views left foot submitted without comparison. Right foot/ankle: No acute fracture. Mild right ankle osteoarthritis. The mortise is normal. Insertional Achilles tendinopathy with large enthesophyte formation is present. Large plantar heel spur. Mild pes cavus is present. Plantar fascia heterotopic ossification noted. Left foot: No acute fracture. Mild pes cavus. The joint spaces are normal. Large Achilles enthesophyte and plantar heel spur noted. IMPRESSION: Mild right ankle osteoarthritis. Bilateral pes cavus. Large bilateral plantar heel spurs. Insertional right Achilles tendinopathy with large enthesophyte formation. THIS IS AN ELECTRONICALLY VERIFIED FINAL REPORT 08/12/2024 2:47 PM - Electronically signed by Henry Vuong M.D. MF: [email or web address] Report ID: [id number] Reading Location: [id number] Procedure Note Henry Vuong MD - 08/12/2024 EXAM DESCRIPTION: XR FOOT RIGHT 3 OR MORE VIEWS; XR FOOT LEFT 3 OR MORE VIEWS; XR ANKLE RIGHT 3 OR MORE VIEWS REASON FOR STUDY: R foot/ankle pain Left ankle pain Intermittent increasing right dorsal foot pain radiating into ankle x 2weeks, no injury FINDINGS: Three views right foot, three views right ankle and three viewsleft foot submitted without comparison. Right foot/ankle: No acute fracture. Mild right ankle osteoarthritis. The mortise isnormal. Insertional Achilles tendinopathy with large enthesophyte formation is present. Large plantar heel spur. Mild pes cavus is present. Plantarfascia heterotopic ossification noted. Left foot: No acute fracture. Mild pes cavus. The joint spaces are normal. Large Achilles enthesophyte and plantar heel spur noted. IMPRESSION: Mild right ankle osteoarthritis. Bilateral pes cavus. Large bilateral plantar heel spurs. Insertional right Achilles tendinopathy with large enthesophyteformation. THIS IS AN ELECTRONICALLY VERIFIED FINAL REPORT 08/12/2024 2:47 PM - Electronically signed by Henry Vuong M.D. MF: [email or web address] Report ID: [id number] Reading Location: [id number] Dima Hamilton DO IMG XR PROCEDURES Milly l Result * XR Foot Left 3+ Vw (08/12/2024 11:00 AM CDT) Anatomical Region Laterality Modality Lower Extremities, Foot Left Computed Radiography 08/12/2024 2:43 PM CDT Narrative 08/12/2024 2:47 PM CDT EXAM DESCRIPTION: XR FOOT RIGHT 3 OR MORE VIEWS; XR FOOT LEFT 3 OR MORE VIEWS; XR ANKLE RIGHT 3 OR MORE VIEWS REASON FOR STUDY: R foot/ankle pain Left ankle pain Intermittent increasing right dorsal foot pain radiating into ankle x 2 weeks, no injury FINDINGS: Three views right foot, three views right ankle and three views left foot submitted without comparison. Right foot/ankle: No acute fracture. Mild right ankle osteoarthritis. The mortise is normal. Insertional Achilles tendinopathy with large enthesophyte formation is present. Large plantar heel spur. Mild pes cavus is present. Plantar fascia heterotopic ossification noted. Left foot: No acute fracture. Mild pes cavus. The joint spaces are normal. Large Achilles enthesophyte and plantar heel spur noted. IMPRESSION: Mild right ankle osteoarthritis. Bilateral pes cavus. Large bilateral plantar heel spurs. Insertional right Achilles tendinopathy with large enthesophyte formation. THIS IS AN ELECTRONICALLY VERIFIED FINAL REPORT 08/12/2024 2:47 PM - Electronically signed by Henry Vuong M.D. MF: [email or web address] Report ID: [id number] Reading Location: [id number] Procedure Note Henry Vuong MD - 08/12/2024 EXAM DESCRIPTION: XR FOOT RIGHT 3 OR MORE VIEWS; XR FOOT LEFT 3 OR MORE VIEWS; XR ANKLE RIGHT 3 OR MORE VIEWS REASON FOR STUDY: R foot/ankle pain Left ankle pain Intermittent increasing right dorsal foot pain radiating into ankle x 2weeks, no injury FINDINGS: Three views right foot, three views right ankle and three viewsleft foot submitted without comparison. Right foot/ankle: No acute fracture. Mild right ankle osteoarthritis. The mortise isnormal. Insertional Achilles tendinopathy with large enthesophyte formation is present. Large plantar heel spur. Mild pes cavus is present. Plantarfascia heterotopic ossification noted. Left foot: No acute fracture. Mild pes cavus. The joint spaces are normal. Large Achilles enthesophyte and plantar heel spur noted. IMPRESSION: Mild right ankle osteoarthritis. Bilateral pes cavus. Large bilateral plantar heel spurs. Insertional right Achilles tendinopathy with large enthesophyteformation. THIS IS AN ELECTRONICALLY VERIFIED FINAL REPORT 08/12/2024 2:47 PM - Electronically signed by Henry Vuong M.D. MF: [email or web address] Report ID: [id number] Reading Location: [id number] Dima Hamilton DO IMG XR PROCEDURES Milly l Result * XR Ankle Right 3+ Vw (08/12/2024 11:00 AM CDT) Anatomical Region Laterality Modality Lower Extremities, Ankle Right Compute d Radiography 08/12/2024 2:43 PM CDT Narrative 08/12/2024 2:47 PM CDT EXAM DESCRIPTION: XR FOOT RIGHT 3 OR MORE VIEWS; XR FOOT LEFT 3 OR MORE VIEWS; XR ANKLE RIGHT 3 OR MORE VIEWS REASON FOR STUDY: R foot/ankle pain Left ankle pain Intermittent increasing right dorsal foot pain radiating into ankle x 2 weeks, no injury FINDINGS: Three views right foot, three views right ankle and three views left foot submitted without comparison. Right foot/ankle: No acute fracture. Mild right ankle osteoarthritis. The mortise is normal. Insertional Achilles tendinopathy with large enthesophyte formation is present. Large plantar heel spur. Mild pes cavus is present. Plantar fascia heterotopic ossification noted. Left foot: No acute fracture. Mild pes cavus. The joint spaces are normal. Large Achilles enthesophyte and plantar heel spur noted. IMPRESSION: Mild right ankle osteoarthritis. Bilateral pes cavus. Large bilateral plantar heel spurs. Insertional right Achilles tendinopathy with large enthesophyte formation. THIS IS AN ELECTRONICALLY VERIFIED FINAL REPORT 08/12/2024 2:47 PM - Electronically signed by Henry Vuong M.D. MF: JARETT Report ID: [id number] Reading Location: [id number] Procedure Note Henry Vuong MD - 08/12/2024 EXAM DESCRIPTION: XR FOOT RIGHT 3 OR MORE VIEWS; XR FOOT LEFT 3 OR MORE VIEWS; XR ANKLE RIGHT 3 OR MORE VIEWS REASON FOR STUDY: R foot/ankle pain Left ankle pain Intermittent increasing right dorsal foot pain radiating into ankle x 2weeks, no injury FINDINGS: Three views right foot, three views right ankle and three viewsleft foot submitted without comparison. Right foot/ankle: No acute fracture. Mild right ankle osteoarthritis. The mortise isnormal. Insertional Achilles tendinopathy with large enthesophyte formation is present. Large plantar heel spur. Mild pes cavus is present. Plantarfascia heterotopic ossification noted. Left foot: No acute fracture. Mild pes cavus. The joint spaces are normal. Large Achilles enthesophyte and plantar heel spur noted. IMPRESSION: Mild right ankle osteoarthritis. Bilateral pes cavus. Large bilateral plantar heel spurs. Insertional right Achilles tendinopathy with large enthesophyteformation. THIS IS AN ELECTRONICALLY VERIFIED FINAL REPORT 08/12/2024 2:47 PM - Electronically signed by Henry Vuong M.D. MF: JARETT Report ID: [id number] Reading Location: [id number] Dima Hamilton DO IMG XR PROCEDURES Milly l Result * (ABNORMAL) Rheumatoid factor (07/22/2024 12:52 PM CDT) Rheumatoid factor, quant 54.3(H) <=15.0 IUnits/mL Blood 07/22/2024 12:5 2 PM CDT 07/22/2024 4:55 PM CDT Dima Hamilton DO LAB BLOOD ORDERABLES F inal Result [facility] [address] [facility] Department [place] [address] * eGFR (06/19/2024 9:54 AM CDT) eGFR >90 >=60 mL/min/1. 73 m2 Comment: Interpretive Data Reference Interval Normal >/= 90 mL/min/1.73m2 Mildly decreased* 60 - 89 mL/min/1.73m2 Mildly to moderately decreased 45 - 59 mL/min/1.73m2 Moderately to severely decreased 30 - 44 mL/min/1.73m2 Severely decreased 15 - 29 mL/min/1.73m2 Kidney Failure < 15 mL/min/1.73m2 *Relative to young adult level Estimated glomerular filtration rate is determined by the 2020 CKD-EPI equation recommended by the National Kidney Foundation (A Unifying Approach to GFR Estimation: Recommendations of the NKF-ASK Task Force on Reassessing the Inclusion of Race in Diagnosing Kidney Disease, JASN 202). The CKD-EPI equation should not be used for patients with unstable renal function and has not been validated in children and those over 70. Current interpretive data was last reviewed 2021. Testing performed by: [facility], [address] [place] [address]., [id number] Blood 06/19/2024 9:54 AM CDT 06/19/2024 10:27 AM CDT Dima Loyd Alfonso DO LAB BLOOD ORDERABLES F inal Result Performing Organization Address [facility] de Phone Number DION [address] [facility] [employer] [place] [address] * Cholesterol, LDL, direct (06/19/2024 9:54 AM CDT) LDL Cholesterol, Direct 89 <=129 mg/dL Comment: Interpretive Data Ages < or = 19 years Acceptable: <110 mg/dL Borderline high: 110-129 mg/dL High: >or= 130 mg/dL Ages > or = 20 years Optimal: <100 mg/dL Near optimal: 100-129 mg/dL Borderline high: 130-159 mg/dL High: >160 mg/dL Literature References: 1. Expert Panel on Integrated Guidelines for Cardiovascular Health and Risk Reduction in Children and Adolescents. Pediatrics 2011;128:S213 2. NCEP Expert Panel. Circulation 2004;110:227 Current Interpretive Data was last revised on 2017. Testing performed by: [address] [address] Blood 06/19/2024 9:54 AM CDT 06/19/2024 10:27 AM CDT Narrative DION - 06/19/2024 12:56 PM CDT Cholesterol, LDL, direct reflexed based on Elevated Triglyceride (>400) Dima Evert [facility] LAB BLOOD ORDERABLES F inal Result Performing Organization Address [facility] de Phone Number DION [address] [facility] [employer] [place] [address] * (ABNORMAL) Hemoglobin A1c (06/19/2024 9:54 AM CDT) Hgb A1C 9.5(H) 4.0 - 5.6 % Comment:Testing performed by : [address] [address] Estimated Average Glucose 226 mg/dL DION Comment: The ADA recommends reporting an estimated Average Glucose (eAG) with all Hemoglobin A1c results using the equation derived from a study of 507 normal and diabetic adults. Minority populations were underrepresented and children were not included. (Diabetes Care 31:1731-3581, 2008). The eAG is not equivalent to a fasting glucose. Testing performed by: [facility], [address] [place] [address]., [id number] Blood 06/19/2024 9:54 AM CDT 06/19/2024 10:25 AM CDT us Dima Hamilton DO LAB BLOOD ORDERABLES F inal Result [facility] [address] [facility] Department [place] [address] * (ABNORMAL) Lipid panel (06/19/2024 9:54 AM CDT) Cholesterol 195 30 - 199 mg/dL Comment: Interpretive Data Ages < or = 19 years Acceptable: <170 mg/dL Borderline high: 170-199 mg/dL High: >or= 200 mg/dL Ages > or = 20 years Desirable: <200 mg/dL Borderline high: 200-239 mg/dL High: >or= 240 mg/dL Literature References: 1. Expert Panel on Integrated Guidelines for Cardiovascular Health and Risk Reduction in Children and Adolescents. Pediatrics 2011;128:S213 2. NCEP Expert Panel. Circulation 2004;110:227 Current Interpretive Data was last revised on 2017. Testing performed by: [address] [address] Triglycerides 546(H) <=149 mg/dL DION [facility]KS Comment: Interpretive Data Ages < or = 9 years Acceptable: <75 mg/dL Borderline high: 75-99 mg/dL High: >or= 100 mg/dL Ages 10 to 20 years Acceptable: <90 mg/dL Borderline high: 90-129 mg/dL High: >or= 130 mg/dL Ages > or = 20 years Desirable: <150 mg/dL Borderline high: 150-199 mg/dL High: 200-499 mg/dL Very high: >or= 499 mg/dL Literature References: 1. Expert Panel on Integrated Guidelines for Cardiovascular Health and Risk Reduction in Children and Adolescents. Pediatrics 2011;128:S213 2. NCEP Expert Panel. Circulation 2004;110:227 Current Interpretive Data was last revised on 2017. Testing performed by: [address] [address] HDL 30(L) >=40 mg/dL DION [facility]EEKS Comment: Interpretive Data Ages < or = 19 years Acceptable: >45 mg/dL Borderline low: 40-45 mg/dL Low: <40 mg/dL Ages > or = 20 years Desirable: >or= 60 mg/dL Low: <40 mg/dL Literature References: 1. Expert Panel on Integrated Guidelines for Cardiovascular Health and Risk Reduction in Children and Adolescents. Pediatrics 2011;128:S213 2. NCEP Expert Panel. Circulation 2004;110:227 Current Interpretive Data was last revised on 2017. Testing performed by: [address] [address] LDL, calculated See Comment <=129 mg/dL [facility]ION MEEKS Comment: Unable to calculate due to elevated Triglycerides. Interpretive Data Ages < or = 19 years Acceptable: <110 mg/dL Borderline high: 110-129 mg/dL High: >or= 130 mg/dL Ages > or = 20 years Optimal: <100 mg/dL Near optimal: 100-129 mg/dL Borderline high: 130-159 mg/dL High: >160 mg/dL Calculated using the Ulisses LDL-C estimating equation. This equation was implemented on 2023. Prior to this date LDL-C was estimated using the Friedewald equation. Literature References: 1. Expert Panel on Integrated Guidelines for Cardiovascular Health and Risk Reduction in Children and Adolescents. Pediatrics 2011;128:S213 2. NCEP Expert Panel. Circulation 2004;110:227 3. Ulisses Gibson et al. NARCISA Cardiol. 2020 August 08;5(5):540-548. doi: 10.1001/jamacardio.2020.0013 Current Interpretive Data was last revised on 2023. Testing performed by: [address] [address] Non-HDL Cholesterol 165 mg/dL [facility]ION MEEKS Comment: Interpretive Data Ages < or = 19 years Acceptable: <120 mg/dL Borderline high: 120-144 mg/dL High: >145 mg/dL Ages > or = 20 years When triglycerides are >200 mg/dL, Non-HDL cholesterol is a secondary target of therapy with treatment goals that are 30 mg/dL greater than the LDL cholesterol target. Literature References: 1. Expert Panel on Integrated Guidelines for Cardiovascular Health and Risk Reduction in Children and Adolescents. Pediatrics 2011;128:S213 2. NCEP Expert Panel. Circulation 2004;110:227 Current Interpretive Data was last revised on 2017. Testing performed by: [address] [address] Chol/HDL ratio 6 DION Comment:Testing performed by : [address] [address] Blood 06/19/2024 9:54 AM CDT 06/19/2024 10:27 AM CDT Dima Hamilton LAB BLOOD ORDERABLES F inal Result DION [address] [facility] Department [place] [address] * (ABNORMAL) Comprehensive metabolic panel (06/19/2024 9:54 AM CDT) Sodium 136 135 - 145 mmol/L Comment:Testing performed by : [address] [address] Potassium, pl 4.6 3.3 - 4.9 mmol/L DION Comment:Testing performed by : [address] [address] Chloride 102 97 - 110 mmol/L DION Comment:Testing performed by : [address] [address] CO2 23 22 - 32 mmol/L DION Comment:Testing performed by : [address] [address] Anion gap 11 2 - 15 mmol/L DION Comment:Testing performed by : [address] [address] BUN 15 6 - 25 mg/dL DION Comment:Testing performed by : [address] [address] Creatinine 0.60 0.60 - 1.10 mg/dL DION Comment:Testing performed by : [address] [address] Glucose 284(H) 70 - 199 mg/dL DION Comment: Interpretive Data Fasting glucose >/= 126 mg/dl is diagnostic for diabetes. Fasting is defined as no caloric intake for at least 8 hours. Fasting glucose between 100 mg/dl to 125 mg/dl is diagnostic of prediabetes. In a patient with classic symptoms of hyperglycemia or hyperglycemic crisis, a random glucose >/= 200 mg/dl is diagnostic for diabetes. In the absence of unequivocal hyperglycemia, results should be confirmed by repeat testing. The classification and Diagnosis of Diabetes Diabetes Care 2021; 46: S19-S40. Current interpretive data was last revised 2022. Testing performed by: [address] [address] Calcium 9.7 8.5 - 10.3 mg/dL [facility] Comment:Testing performed by : [address] [address] Bilirubin, total 0.4 0.1 - 1.2 mg/dL [facility] Comment:Testing performed by : [address] [address] Protein, pl 7.8 6.5 - 8.5 g/dL [facility] Comment:Testing performed by : [address] [address] Albumin 3.9 3.5 - 5.0 g/dL [facility] Comment:Testing performed by : [address] [address] Alk phos 151(H) 40 - 130 Units/L [facility] Comment:Testing performed by : [address] [address] ALT 102(H) 7 - 45 Units/L DION Comment:Testing performed by : [address] [address] AST 60(H) 10 - 45 Units/L [facility] Comment:Testing performed by : [address] [address] Blood 06/19/2024 9:54 AM CDT 06/19/2024 10:27 AM CDT Dima Loyd Honey LAB BLOOD ORDERABLES F inal Result Performing Organization Address [facility] Co de Phone Number DION [address] [facility] [address] [place] [address] * Diabetic Eye Exam (12/26/2023) Historical Provider MD HEALTH MAINTENANCE Final Result * (ABNORMAL) Albumin Creatinine Ratio, Urine (11/06/2023 10:16 AM CDT) Albumin Ur 339.5 mg/L Comment: Interpretive Data No reference range established. Current interpretive data was last revised 2018. Testing performed by: [address] [address] Creatinine Ur 111.2 mg/dL DION Comment: Interpretive Data No reference range established. Current interpretive data was last revised 2018. Testing performed by: [address] [address] Albumin Creatinine Ratio, Ur 305(H) 1 - 29 mg/g [facility]ION Comment:Testing performed by : [address] [address] Urine 11/06/2023 10:1 6 AM CDT 11/06/2023 11:52 AM CDT Dima Loyd Honey LAB URINE ORDERABLES F inal Result Performing Organization Address [facility]/ZIP Co de Phone Number DION [address] [facility] [address] [place] [address] from Last 3 Months or Most Recently Relevant to Health Maintenance Insurance [employer] HMO PPO Member Subscriber Plan / Payer (Ef fective 2021-Present) Name:Cherelle Dave Relation to Subscriber:Self Name:Cherelle Dave Payer ID:[id number] (NAIC) Group ID:[id number] Type:MEDICARE RISK OTHER Address: [id number] [facility] IDPA Care Teams Wood Heel Finisher Relationship Specialty [place] [address] [place] [id number] PCP - General Family Medicine 11/06/23
--- OUTSIDE RECORDS SUMMARY | 2024-09-18 13:55 | XMS_ITS | Encounter Summary ---
Author Organization [facility] Healthcare Address [address] [place] [address] Care Team Providers Care Clerical Investigator Name Role Phone Dima Hamilton DO Primary Care Provider Reason for Visit * Reason Onset Date Comments Referral Request 09/12/2024 Encounter Details Date Type Department Care Team ([facility] st Contact Info) Description 09/12/2024 Telephone [facility] Medical Group Primary Care [address] [facility] [address] [place] [address] Dima Hamilton DO [address] [facility] [address] [place] [address] Referral Request Social History Tobacco Use Types Packs/Day Years Used Date Smoking Tobacco: Never Smokeless Tobacco: Never AUDIT-C Answer Date Recorded Q1: How often [...] on file Legal Sex Female 11:04 PM CL[facility] DOFFER Gender Identity Female 05/29/2024 7:45 PM CL[facility] DOFFER Sexual Orientation Lesbian 05/29/2024 7: 45 PM CLOTH DOFFER documented as of this encounter Miscellaneous Notes * Telephone Encounter - Catalina Lozano - 09/12/2024 3:46 PM CDT Spoke with Audi with [facility]. No referral auth required, fax sent * Telephone Encounter - Cristian Bruno - 09/12/2024 3:10 PM CDT Referral Provider Name: LAURA South Specialty: OBGYN Address: [address] [place] [address], Zip: [facility] [address] Diagnosis Code/Symptom/Reason Patient is being seen: Z 01.419 Date of Appointment: 09/18/24 NPI#: [id number] Tax ID#: Not provided Is insurance in chart up to date? Yes Additional Comments: [place] with Dr. South's office called to request insurance authorization to see this patient due to insurance being and HMO. Sending high priority request due to appt appt date. Does message need to be routed? Yes-Action Needed documented in this encounter Plan of Treatment Not on file documented as of this encounter Visit Diagnoses Not on filedocumented in this encounter Care Teams Clerical Investigator Relationship Specialty Start Date End Date Dima Hamilton DO [address] [place] [id number] PCP - General Family Medicine 11/06/23 documented as of this encounter
--- OUTSIDE RECORDS SUMMARY | 2024-09-18 13:55 | XMS_ITS | Referral Summary ---
Author Organization [facility] Address [address] [place] [address] Care Team Providers Care Harvest Worker Name Role Phone Dima Hamilton DO Primary Care Provider Encounters Date Type Department Care Team Description 09/16/2024 ACO Quality [facility] Accountable Care Organization [address] [place] [address] Kristin Burciaga 09/16/[address] [facility] [address] [address] Kristin Burciaga Chart Review (error) 09/12/2024 Telephone [facility] Primary Care [address] [facility] [address] [place] [address] Dima Hamilton DO Referral Request 09/10/2024 3:51 PM CDT - 09/10/2024 11:59 PM CDT Hospital Encounter [facility] [address] ALOTN Galloway [address] Pain in both hands Discharge Disposition: Discharge to home or self care 09/10/2024 4:20 PM CDT Lab [facility] [address] [address] Zayas [address] Pain in both hands 09/10/2024 3:20 PM CDT Office Visit [facility] Rheumatology [address] [facility] Medical Office Building 2 [address] [place] [address] Rachel Hirsch, LAURA Pain in both hands; Elevated sed rate 08/19/2024 Telephone [facility] Primary Care [address] [place] [phone] Dima Hamilton DO Insurance Referrals 08/19/2024 11:00 AM CDT Therapy [facility] Medical Office Bldg 1 OP Occupational Therapy [address] [place] [address] Ade Eric OT Pain in both hands (Primary Dx); Sensory processing difficulty 08/13/2024 1:00 PM CDT Clinical Support [facility] Nutrition Counseling [address] [place] [address] Type 2 diabetes mellitus with other specified complication, without long-term current use of insulin (HCC) (Primary Dx) 08/12/2024 Results Follow-Up [facility] Primary Care [address] [place] [phone] Dima Hamilton DO XR Ankle Right 3+ Vw 08/12/2024 10:11 AM CDT - 08/12/2024 11:59 PM CDT Hospital Encounter [facility] MOB 1 DIAG IMG [address] [place] [address] Acute right ankle pain; Right foot pain; Pain of toe of left foot Discharge Disposition: Discharge to home or self care 08/12/2024 11:15 AM CDT Office Visit [facility] Primary Care [address] [place] [phone] Dima Hamilton DO Pain of toe of left foot (Primary Dx); Acute right ankle pain; Right foot pain; Chronic bilateral low back pain without sciatica 08/07/2024 2:00 PM CDT Therapy [facility] Medical Office Bldg 1 OP Occupational Therapy [address] [place] [address] Chong, Meraux Karen, OT Pain in both hands (Primary Dx); Sensory processing difficulty 08/05/2024 11:00 AM CDT Therapy [facility] Office Bldg 1 OP Occupational Therapy [address] [place] [address] [place] [address] Ade Eric, OT Pain in both hands (Primary Dx) 07/29/2024 8:00 AM CDT Therapy [facility] Medical Office Bl 1 OP Occupational Therapy [address] [place] [address] [place] [address] Ade Eric, OT Pain in both hands (Primary Dx) 07/24/2024 2:00 PM CDT Therapy [facility] Office Bl 1 OP Occupational Therapy [address] [place] [address] [place] [address] Ade Eric, OT Pain in both hands (Primary Dx); Sensory processing difficulty 07/23/2024 Results Follow-Up [facility] Primary Care [address] [place] [phone] Dima Hamilton DO Rheumatoid factor 07/22/2024 Letter (Out) [facility] Primary Care [address] [place] [phone] 07/22/2024 12:50 PM CDT Lab [facility] Building [address] [place] [address] Pain in both hands; Elevated sed rate 07/20/2024 Plan of Care Documentation [facility] Medical Office Bldg 1 OP Occupational Therapy [address] [place] [address] 07/17/2024 1:00 PM CDT Therapy [facility] Office Bl 1 OP Occupational Therapy [address] [place] [address] [place] [address] Yaneth Chong, OT Pain in both hands; Sensory processing difficulty 07/15/[address] [facility] Organization [address] [place] [address] Catie Malone CPhT 07/15/2024 11:00 AM CDT Office Visit [facility] Primary Care [address] [place] [phone] Dima Hamilton DO Moderate episode of recurrent major depressive disorder (HCC) (Primary Dx); Generalized anxiety disorder; Benign essential hypertension; Type 2 diabetes mellitus with other specified complication, without long-term current use of insulin (HCC); Morbid obesity (HCC); Mixed hyperlipidemia; Pain in both hands; Sensory processing difficulty 07/09/2024 Letter (Out) [facility] Primary Care [address] [place] [phone] 07/09/2024 3:00 PM CDT - 07/09/2024 11:59 PM CDT Hospital Encounter [facility] Diabetes Educ [address] [place] [address] Type 2 diabetes mellitus with other specified complication, without long-term current use of insulin (HCC) Discharge Disposition: Discharge to home or self care 07/01/2024 Telephone [facility] Care [address] [place] [phone] Dima Hamilton DO 07/01/2024 Telephone [facility] Care [address] [place] [phone] Dima Hamilton DO 06/27/2024 9:45 AM CDT Office Visit [address] [phone] Dima Hamilton DO Type 2 diabetes mellitus with other specified complication, without long-term current use of insulin (HCC) (Primary Dx); Morbid obesity (HCC); Benign essential hypertension; Mixed hyperlipidemia; Generalized anxiety disorder 06/20/[address] [facility] Organization [address] [place] [address] Sofya Singletary LPN 06/19/2024 Results Follow-Up [facility] Primary Care [address] [facility] [address] [place] [address] Dima Hamilton, Hemoglobin A1c, Lipid panel, Comprehensive metabolic panel, Additional followed-up results: 2 06/19/2024 9:45 AM CDT Lab [facility] Building 1 Lab [address] [place] [address] Type 2 diabetes mellitus without complication, without long-term current use of insulin ([facility]); Mixed hyperlipidemia 06/18/2024 ACO Quality [facility] Accountable Care Organization [address] [place] [address] Kristin Burciaga from Last 3 Months Allergies Active Allergy Reactions Criticality Noted Date [...] complication, without long-term current use of insulin ([facility]) TAKE 1 TABLET(5 MG) BY MOUTH DAILY 90 tablet 1 03/11/20 24 Active semaglutide (OZEMPIC) 0.25 mg or 0.5 mg (2 mg/3 mL) pen injector injectionIndicatio ns:Type 2 diabetes mellitus with other specified complication, without long-term current use of insulin ([facility]) Inject 0.25 mg under the skin every 7 days 3 mL 2 06/28/19 25 Active rizatriptan TRIMMING MACHINE OPERATOR (MAXALT-TRIMMING MACHINE OPERATOR) 10 mg disintegrating tabletIndications: Migraine without aura [...] glucose scanning reader (FreeStyle Aidan 14 Day Florence) miscIndications:Ty pe 2 diabetes mellitus without complication, [...] nt Reported) blood-glucose meter,continuous (FreeStyle Aidan 3 Florence) misc Use to check blood sugars up [...] 025 Discontin ued(Patie nt Reported) blood-glucose sensor (FreeStyle Aidan 3 Plus Sensor) device USE TO [...] medications DDD (degenerative disc disease), lumbar 10/18/19 Overview (12/07/2023): Chronic low back pain Completed [...] utilize baclofen as needed. May also utilize [id number] icy Hot with lidocaine patches. 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 Procedure Note Boogie Amaya, - 09/10/2024 EXAMINATION: XR HAND RIGHT 2 [...] erosions. Electronically signed by: Boogie Amaya D.O. Rachel Hirsch NP IMG XR PROCEDURES Final [...] No discrete osseous erosions. Procedure Note Boogie Amaya, - 09/10/2024 EXAMINATION: XR HAND RIGHT 2 [...] last revised on 2019. Testing performed by: [facility], [address] [facility] [place] [address] Blood 09/10/2024 3:46 PM CDT 09/10/2024 6:34 PM CDT us Rachel Hirsch NP LAB BLOOD ORDERABLES Fi nal Result [facility]JW[facility] [address] [facility]. [place] [address] * eGFR (09/10/2024 3:46 PM CDT) Pathologist [facility] eGFR >90 >=60 mL/min/1. 73 m2 Comment: [...] 09/10/2024 3:58 PM CDT us Rachel Hirsch INSULATION WORKER APPRENTICE LAB BLOOD ORDERABLES Critical access hospital Result [facility] [address] [facility]. [place] [address] * (ABNORMAL) Differential, auto (09/10/2024 3:46 PM CDT) Pathologist [facility] Neutrophil abs 6.53(H) 1.50 - 6.50 K/cumm Imm gran abs 0.04 0.00 - 0.10 K/cumm [facility] Lymphocyte abs 2.72 0.80 - 3.30 K/cumm [facility] Monocyte abs 0.55 0.20 - 0.80 K/cumm [facility] Eosinophil abs 0.07 0.00 - 0.50 K/cumm [facility] Basophil abs 0.04 0.00 - 0.10 K/cumm [facility] Neutrophil pct 65.7 % [facility] Comment: Interpretive Data Percent cell count reference ranges are not reported, since discordance with absolute values may lead to misinterpretation of CBC data. Current Interpretive Data was last revised on 2017. Imm gran pct 0.4 % [facility] [address] Comment: Interpretive Data Percent [...] on 2017. Eosinophil pct 0.7 % [facility] Comment: Interpretive Data Percent cell count reference ranges are not reported, since discordance with absolute values may lead to misinterpretation of CBC data. Current Interpretive Data was last revised on 2017. Basophil pct 0.4 % [facility] [address] Comment: Interpretive Data Percent cell count reference ranges are not reported, since discordance with absolute values may lead to misinterpretation of CBC data. Current Interpretive Data was last revised on 2017. Blood 09/10/2024 3:46 PM CDT 09/10/2024 3:58 PM CDT Rachel Hirsch INSULATION WORKER APPRENTICE LAB BLOOD ORDERABLES Fi nal Result [facility] [address] [facility]. [place] [address] * (ABNORMAL) CBC with auto differential (09/10/2024 3:46 PM CDT) WBC 9.95(H) 3.80 - 9.90 K/cumm Hgb 13.6 11.9 - 15.5 g/dL [facility] Hct 41.4 35.6 - 45.5 % [facility] Plt 284 150 - 400 K/cumm [facility] MPV 11.7 9.1 - 12.3 fL [facility] RBC 4.77 3.90 - 5.20 M/cumm [facility] MCV 86.8 81.3 - 96.4 fL [facility] MCH 28.5 27.1 - 33.3 pg [facility] MCHC 32.9 32.3 - 35.7 g/dL [facility] RDW CV 13.2 11.1 - 14.9 % [facility] RDW SD 41.1 35.7 - 48.1 fL [facility] NRBC abs 0.00 0.00 - 0.01 K/cumm [facility] Blood 09/10/2024 3:46 PM CDT 09/10/2024 3:58 PM CDT Rachel Hirsch INSULATION WORKER APPRENTICE LAB BLOOD ORDERABLES Fi nal Result Performing Organization Address [facility] Co de Phone Number [facility] [address] [place] [address] * (ABNORMAL) Cyclic citrul peptide antibody, IgG (09/10/2024 3:46 PM CDT) [facility] CCP Ab >300.0(H) <=2.9 units/mL Comment: Interpretive data Negative: <3 units/mL Positive: > or equal to 3 units/mL Current interpretive data was last revised on 2016. Testing performed by: [facility], [address] [place]., [address] Blood 09/10/2024 3:46 PM CDT 09/10/2024 6:34 PM CDT Rachel Hirsch INSULATION WORKER APPRENTICE LAB BLOOD ORDERABLES Fi nal Result [facility] [address] [place] [address] * Hepatitis panel, acute Blood (09/10/2024 3:46 PM CDT) Hep A IgM Nonreactive Nonreactive Comment: Interpretive Data: If Hep A IgM Ab is reported as Equivocal, a new sample should be drawn in two weeks for testing. Current interpretive data was last revised on 19. Testing performed by: [facility], [address] [place] [address]., [address] Hep B core IgM Nonreactive Nonreactive [facility] Comment: Interpretive Data If HepB Core IgM Ab is reported as Equivocal, a new sample should be drawn in two weeks for testing. Current interpretive data was last revised on 19. Testing performed by: [facility], [address] [place] [address]., [address] Hep C Ab Nonreactive Nonreactive [facility] Comment: Interpretive Data Nonreactive: Antibodies to HCV [...] last revised on 2019. Testing performed by: [facility], [address] [place] [address]., [address] HepBsAg Nonreactive Nonreactive [facility] Comment:Testing performed by : [facility], [address] [place] [address]., [address] Blood 09/10/2024 3:46 PM CDT 09/10/2024 7:33 PM CDT Rachel Hirsch NP LAB MICROBIOLOGY - GENE RAL ORDERABLES Final Result [facility] [address] [facility]. [place] [address] * (ABNORMAL) Erythrocyte sedimentation rate (09/10/2024 3:46 PM CDT) Pathologist [facility] Erythrocyte sedimentation rate 22(H) 1 - 20 mm/hr Blood 09/10/2024 3:46 PM CDT 09/10/2024 3:58 PM CDT us Rachel Hirsch INSULATION WORKER APPRENTICE LAB BLOOD ORDERABLES Fi nal Result Performing Organization Address [facility] Co de Phone Number DION [facility] [address] [facility] [place] [address] * CRP (acute phase) (09/10/2024 3:46 PM CDT) [facility] CRP 3.8 <=10.0 mg/L Blood 09/10/2024 3:46 PM CDT 09/10/2024 3:58 PM CDT Rachel Hirsch INSULATION WORKER APPRENTICE LAB BLOOD ORDERABLES Fi nal Result Performing Organization Address [facility] de Phone Number [facility] [address] [facility] [place] [address] * Comprehensive metabolic panel (09/10/2024 3:46 PM CDT) [facility] Sodium 141 135 - 145 mmol/L Potassium, pl 4.1 3.3 - 4.9 mmol/L [facility] Chloride 99 97 - 110 mmol/L [facility] CO2 28 22 - 32 mmol/L [facility] Anion gap 14 2 - 15 mmol/L [facility] BUN 15 6 - 25 mg/dL [facility] Creatinine 0.77 0.60 - 1.10 mg/dL [facility] Glucose 183 70 - 199 mg/dL [facility] Comment: Interpretive Data Fasting glucose >/= 126 [...] CDT Rachel Hirsch NP LAB BLOOD ORDERABLES nal Result [facility] [address] [facility]. [place] [address] * XR Foot Right 3+ Vw (08/12/2024 [...] Henry Vuong M.D. MF: JARETT Report ID: [id number] Reading Location: [id number] Procedure Note Henry Vuong MD - 08/12/2024 [...] Henry Vuong M.D. MF: JARETT Report ID: [id number] Reading Location: [id number] Dima Hamilton DO IMG XR PROCEDURES Milly [...] Henry Vuong M.D. MF: JARETT Report ID: [id number] Reading Location: [id number] Procedure Note Henry Vuong MD - 08/12/2024 [...] Henry Vuong M.D. MF: JARETT Report ID: [id number] Reading Location: [id number] Dima Hamilton DO IMG XR PROCEDURES Milly [...] Henry Vuong M.D. MF: JARETT Report ID: [id number] Reading Location: [id number] Procedure Note Henry Vuong MD - 08/12/2024 [...] Henry Vuong M.D. MF: JARETT Report ID: [id number] Reading Location: [id number] Dima Hamilton DO IMG XR PROCEDURES Milly l Result * (ABNORMAL) Rheumatoid factor (07/22/2024 12:52 PM CDT) [facility] Rheumatoid factor, quant 54.3(H) <=15.0 IUnits/mL Blood 07/22/2024 12:5 2 PM CDT 07/22/2024 4:55 PM CDT Dima Hamilton DO LAB BLOOD ORDERABLES F inal Result [facility] [address] [facility] [place] [address] * eGFR (06/19/2024 9:54 AM CDT) eGFR [...] was last reviewed 2021. Testing performed by: [facility], [address] [place] [address]., [address] Blood 06/19/2024 9:54 AM CDT 06/19/2024 10:27 AM CDT Dima Hamilton DO LAB BLOOD ORDERABLES F inal Result [facility] [address] [facility] [place] [address] * Cholesterol, LDL, direct (06/19/2024 9:54 AM [...] last revised on 2017. Testing performed by: [address] [address] Blood 06/19/2024 9:54 AM CDT 06/19/2024 10:27 AM CDT Narrative [facility] - 06/19/2024 12:56 PM CDT Cholesterol, LDL, direct reflexed based on Elevated Triglyceride (>400) [facility] 1d4 [facility] LAB BLOOD ORDERABLES F inal Result Performing Organization Address [facility] Co de Phone Number [address] [employer] [place], [place] [id number] * (ABNORMAL) Hemoglobin A1c (06/19/2024 9:54 AM CDT) Hgb A1C 9.5(H) 4.0 - 5.6 % Comment:Testing performed by : [address] [address] Estimated Average Glucose 226 mg/dL [facility] Comment: The ADA recommends reporting an estimated Average Glucose (eAG) with all Hemoglobin A1c results using the equation derived from a study of 507 normal and diabetic adults. Minority populations were underrepresented and children were not included. (Diabetes Care 31:3654-2142, 2008). The eAG is not equivalent to a fasting glucose. Testing performed by: [address] [address] Blood 06/19/2024 9:54 AM CDT 06/19/2024 10:25 AM CDT [facility] LAB BLOOD ORDERABLES F inal Result Performing Organization Address City/[facility]/ZIP Co de Phone Number [address] [employer] [place], [place] [id number] * (ABNORMAL) Lipid panel (06/19/2024 9:54 AM [...] last revised on 2017. Testing performed by: [address] [address] Triglycerides 546(H) <=149 mg/dL [facility] Comment: Interpretive Data Ages < or = [...] last revised on 2017. Testing performed by: [address] [address] HDL 30(L) >=40 mg/dL [facility] Comment: Interpretive Data Ages < or = [...] last revised on 2017. Testing performed by: [address] [address] LDL, calculated See Comment <=129 mg/dL [facility] Comment: Unable to calculate due to elevated [...] NCEP Expert Panel. Circulation 2004;110:227 3. Ulisses M et al. NARCISA Cardiol. 2020 August 08;5(5):540-548. doi: 10.1001/jamacardio.2020.0013 Current Interpretive Data was last revised on 2023. Testing performed by: [address] [address] Non-HDL Cholesterol 165 mg/dL [facility] Comment: [...] last revised on 2017. Testing performed by: [address] [address] Chol/HDL ratio 6 [facility] Comment:Testing performed by : [address] [address] Blood 06/19/2024 9:54 AM CDT 06/19/2024 10:27 AM CDT us Dima Hamilton DO LAB BLOOD ORDERABLES F inal Result [facility] [address] [facility] [place] [address] * (ABNORMAL) Comprehensive metabolic panel (06/19/2024 9:54 AM CDT) Sodium 136 135 - 145 mmol/L Comment:Testing performed by : [address], [place]., [address] Potassium, pl 4.6 3.3 - 4.9 mmol/L [facility] Comment:Testing performed by : [address], [place]., [address] Chloride 102 97 - 110 mmol/L [facility] Comment:Testing performed by : [address], [place]., [address] CO2 23 22 - 32 mmol/L [facility] Comment:Testing performed by : [address], [place]., [address] Anion gap 11 2 - 15 mmol/L [facility] Comment:Testing performed by : [address] [address] BUN 15 6 - 25 mg/dL [facility] Comment:Testing performed by : [address], [place]., [address] Creatinine 0.60 0.60 - 1.10 mg/dL [facility] Comment:Testing performed by : [address], [place]., [address] Glucose 284(H) 70 - 199 mg/dL [facility] [...] was last revised 2022. Testing performed by: [address], [place]., [address] Calcium 9.7 8.5 - 10.3 mg/dL [facility] Comment:Testing performed by : [address] [address] Bilirubin, total 0.4 0.1 - 1.2 mg/dL [facility] Comment:Testing performed by : [address] [address] Protein, pl 7.8 6.5 - 8.5 g/dL [facility] Comment:Testing performed by : [address] [address] Albumin 3.9 3.5 - 5.0 g/dL [facility] Comment:Testing performed by : [address] [address] Alk phos 151(H) 40 - 130 Units/L [facility] Comment:Testing performed by : [address] [address] ALT 102(H) 7 - 45 Units/L [facility] Comment:Testing performed by : [address] [address] AST 60(H) 10 - 45 Units/L [facility] Comment:Testing performed by : [address] [address] Blood 06/19/2024 9:54 AM CDT 06/19/2024 10:27 AM CDT Dima Hamilton LAB BLOOD ORDERABLES F inal Result [facility] [address] [facility] [place] [address] * Diabetic Eye Exam (12/26/2023) us Historical Provider HEALTH MAINTENANCE Final Result * (ABNORMAL) Albumin Creatinine Ratio, Urine (11/06/2023 10:16 AM CDT) Albumin Ur 339.5 mg/L Comment: Interpretive Data No reference range established. Current interpretive data was last revised 2018. Testing performed by: [address] [address] Creatinine Ur 111.2 mg/dL [facility] Comment: Interpretive Data No reference range established. Current interpretive data was last revised 2018. Testing performed by: [facility], [address] [place] [address]., [address] Albumin Creatinine Ratio, Ur 305(H) 1 - 29 mg/g [facility] Comment:Testing performed by : [facility], [address] [place] [address]., [address] Urine 11/06/2023 10:1 6 AM CDT 11/06/2023 11:52 AM CDT us Dima Hamilton DO LAB URINE ORDERABLES F inal Result [facility] JEANNA [address] [facility] [place] [address] from Last 3 Months or Most Recently Relevant to Health Maintenance Insurance [employer] HMO PPO Member Subscriber Plan / Payer (Ef fective 2021-Present) Name:Cherelle Dave Relation to Subscriber:Self Name:Cherelle Dave Payer ID:[id number] (NAIC) Group ID:[id number] Type:MEDICARE RISK OTHER Address: [facility] [address] [facility] AD[facility]ANTRA IDPA Care Teams Harvest Worker Relationship Specialty Start Date End Date Dima Hamilton DO [address] [place] [id number] PCP - General Family Medicine 11/06/23
[2024-09-19 08:59] LABS: FSH 7.4 mIU/mL; LH 22.5 mIU/mL
[2024-09-21 09:18] LABS: Reference Lab Test Name TSH
[2024-09-21 09:23] LABS: Reference Lab Test Result 1.28
[2024-09-23 12:04] LABS: Insulin Level Total 102.5; Testosterone Free 14.8
[2024-09-23 12:06] LABS: Testosterone Total 149
== END 2024-09-18 11:38 | disposition home or self-care (01) ==
PROVIDERS: PCP Family Medicine; Visit Provider Nurse Practitioner Obstetrics & Gynecology
DX: E28.2 Polycystic ovarian syndrome (principal)
CPT/HCPCS: 36415; 83001; 83002; 83525; 84402; 84403; 84443

== ENCOUNTER 2024-10-11 13:58 | Emergency (ER) | payer MEDICARE, MEDICAID, SELFPAY ==
--- NOTE | ~2024-10-11 | US_ITS ---
US pelvic complete w TV Ordering provider: Geovanna Griffin PA-C History: . pain, hx L ovarian cyst, r/o torsion . Comparison: None. Technique: Transabdominal and endovaginal ultrasound of the pelvis (Doppler ultrasound interrogation techniques used as needed for this exam.) FINDINGS: CERVIX: Nabothian cysts with the largest measures 0.5 x 0.4 x 0.5 cm. UTERUS: Measures 6.2x 3.4x 4.1 cm in length which is within normal limits and is anteverted. No myom etrial masses. ENDOMETRIUM: Normal in thickness measuring 3.7 mm. (Note: the premenopausal endometrium may measure u p to 16 mm when in the secretory phase.) No endometrial masses, cysts or fluid. CUL DE SAC: No free fluid. RIGHT OVARY: Normal in size measuring 4.5x 2.7x 3.2 cm. Normal echotexture. Doppler vascular flow pre sent. Bilateral follicles are seen. LEFT OVARY: Normal in size measuring 3.8x 1.9x 2.9 cm. Normal echotexture. Doppler vascular flow pres ent. Multiple follicles are seen. ADNEXA: Normal. No mass. IMPRESSION: Nabothian cysts in the cervix. Bilateral peripheral ovarian follicles. Polycystic ovaries should be c onsidered. Otherwise, normal pelvic ultrasound. Reviewed, dictated and finalized at location A. IMPRESSION: Nabothian cysts in the cervix. Bilateral peripheral ovarian follicles. Polycyst ic ovaries should be considered. Otherwise, normal pelvic ultrasound.
--- OUTSIDE RECORDS SUMMARY | 2024-10-11 14:00 | XMS_ITS | Referral Summary ---
Author Organization [facility] er Address [address] [place] [address] Care Team Providers Care Generation Manager Name Role Phone Dima Hamilton DO Primary Care Provider Chanda Coburn SENIOR PROJECT MANAGER ENGINEERING Unavailable [phone] Encounters Date Type Department Care Team Description 10/07/2024 Results Follow-Up [facility] Primary Care [address] [place] [address] Dima Hamilton DO MRI Lumbar Spine WO Contrast 10/05/2024 2:01 PM CDT - 10/05/2024 11:59 PM CDT Hospital Encounter [facility] - Imaging [address] [place] [address] Low back pain, unspecified back pain laterality, unspecified chronicity, unspecified whether sciatica present Discharge Disposition: Discharge to home or self care 10/03/2024 8:16 AM CDT - 10/03/2024 11:59 PM CDT Hospital Encounter [facility] Diag Imaging [facility] [place] [address] Degeneration of intervertebral disc of lumbar region with discogenic back pain; Spinal stenosis of lumbar region without neurogenic claudication Discharge Disposition: Discharge to home or self care 10/03/2024 8:00 AM CDT Office Visit [facility] Neurosurgery Clinic [address] [facility] [address], [address] [place] [address] Ryan Vee PA Spinal stenosis of lumbar region without neurogenic claudication (Primary Dx); Degeneration of intervertebral disc of lumbar region with discogenic back pain; BMI 36.0-36.9,adult; Type 2 diabetes mellitus without complication, with no history of insulin use (HCC) 10/02/2024 4:00 PM CDT Office Visit [facility] [address] [place] [address] [address] [place] [phone] Dima Hamilton DO Benign essential hypertension (Primary Dx); Migraine without aura and without status migrainosus, not intractable; Near syncope; Dizziness; Generalized anxiety disorder; Morbid obesity (HCC); Type 2 diabetes mellitus with other specified complication, without long-term current use of insulin ([facility]) 10/01/2024 11:30 AM CDT Ancillary Procedure [facility] Cardiology [address] [place] [address] Suite [facility] [place] [address] AV block 10/01/2024 Telephone [facility] [address] [facility] Medical Office Building [address] [place] [address] Treva Dee Christophe Call in flare 10/01/2024 10:45 AM CDT Office Visit [facility] [address] [place] [address] [place] [phone] Gavino Talavera MD AV block (Primary Dx) 09/25/2024 Telephone [facility] [address] [place] [address] [address] [place] [address] Maral Guerrero MA Chart Review ([employer] ;med adh) 09/20/2024 10:30 AM CDT Office Visit [facility] [address] [place] [address] [address] [place] [address] Dima Hamilton DO Degeneration of intervertebral disc of lumbar region with discogenic back pain (Primary Dx); Spinal stenosis of lumbar region without neurogenic claudication; Chronic bilateral low back pain without sciatica; Benign essential hypertension; Morbid obesity (HCC); Type 2 diabetes mellitus with other specified complication, without long-term current use of insulin (HCC) 09/19/2024 - 09/19/2024 11:59 PM CDT Hospital Encounter [facility] Films [address] [place] [address] Discharge Disposition: Discharge to home or self care 09/16/2024 ACO [facility] Care Organization [address] [place] [address] Kristin Burciaga 09/16/[address] [address] Kristin Burciaga Chart Review (error) 09/12/2024 Telephone [facility] [address] [place] [address] [address] [place] [phone] Dima Hamilton, Referral Request 09/10/2024 3:51 PM CDT - 09/10/2024 11:59 PM CDT Hospital Encounter [facility] [address] [place] [address] Pain in both hands Discharge Disposition: Discharge to home or self care 09/10/2024 4:20 PM CDT Lab [facility] [address] [address] [address] Pain in both hands 09/10/2024 3:20 PM CDT Office Visit [facility] [address] [facility] Medical Office [address] [place] [phone] Rachel Hirsch NP Pain in both hands; Elevated sed rate 08/19/2024 Telephone [facility] Medical [facility] Primary Care [address] [place] [address] [address] [place] [address] Dima Hamilton DO Insurance Referrals 08/19/2024 11:00 AM CDT Therapy [facility] Medical Office Bldg 1 OP Occupational Therapy [address] [place] [address] [address] [place] [address] Ade Eric, OT Pain in both hands (Primary Dx); Sensory processing difficulty 08/13/2024 1:00 PM CDT Clinical Support [facility] Nutrition Counseling [address] [place] [address] Type 2 diabetes mellitus with other specified complication, without long-term current use of insulin (HCC) (Primary Dx) 08/12/2024 Results Follow-Up [facility] [address] [place] [phone] Dima Hamilton DO XR Ankle Right 3+ Vw 08/12/2024 10:11 AM CDT - 08/12/2024 11:59 PM CDT Hospital Encounter [facility] MOB [address] DIAG IMG [address] [place] [address] Acute right ankle pain; Right foot pain; Pain of toe of left foot Discharge Disposition: Discharge to home or self care 08/12/2024 11:15 AM CDT Office Visit [facility] [address] [place] [phone] Dima Hamilton DO Pain of toe of left foot (Primary Dx); Acute right ankle pain; Right foot pain; Chronic bilateral low back pain without sciatica 08/07/2024 2:00 PM CDT Therapy [facility] Medical Office Bldg 1 OP Occupational Therapy [address] [place] [address] Yaneth Chong OT Pain in both hands (Primary Dx); Sensory processing difficulty 08/05/2024 11:00 AM CDT Therapy [facility] Medical Office Bldg 1 OP Occupational Therapy [address] [place] [address] Ade Eric, OT Pain in both hands (Primary Dx) 07/29/2024 8:00 AM CDT Therapy [facility] Medical Office Bldg 1 OP Occupational Therapy [address] [place] [address] Ade Eric, OT Pain in both hands (Primary Dx) 07/24/2024 2:00 PM CDT Therapy [facility] Medical Office Bldg 1 OP Occupational Therapy [address] [place] [address] Ade Eric, OT Pain in both hands (Primary Dx); Sensory processing difficulty 07/23/2024 Results Follow-Up [facility] [address] [place] [phone] Dima Hamilton DO Rheumatoid factor 07/22/2024 Letter (Out) [facility] [address] [place] [phone] 07/22/2024 12:50 PM CDT Lab [facility] Medical Office Building [address] [place] [address] Pain in both hands; Elevated sed rate 07/20/2024 Plan of Care Documentation [facility] Medical Office Bldg 1 OP Occupational Therapy [address] [place] [address] 07/17/2024 1:00 PM CDT Therapy [facility] Medical Office Bldg 1 OP Occupational Therapy [address] [place] [address] Yaneth Chong, OT Pain in both hands; Sensory processing difficulty 07/15/2024 ACO Medication Access [facility] Accountable Care Organization [address] [place], [place] [id number] Catie Cancino CPhT 07/15/2024 11:00 AM CDT Office Visit [facility] [address] [place] [phone] Dima Hamilton DO Moderate episode of recurrent major depressive disorder (HCC) (Primary Dx); Generalized anxiety disorder; Benign essential hypertension; Type 2 diabetes mellitus with other specified complication, without long-term current use of insulin (HCC); Morbid obesity (HCC); Mixed hyperlipidemia; Pain in both hands; Sensory processing difficulty from Last 3 Months Allergies Active Allergy [...] 3 mL 2 06/28/19 25 Active rizatriptan RN VISITING (MAXALT-RN VISITING) 10 mg disintegrating tabletIndications: Migraine without aura and without status migrainosus, not intractable DISSOLVE 1 TABLET(10 MG) ON THE TONGUE 1 TIME NEEDED FOR MIGRAINE. MAY REPEAT IN 2 HOURS IF UNRESOLVED. DO NOT EXCEED 30 MG IN 24 HOURS 9 tablet 1 07/09/19 25 Active busPIRone (BUSPAR) 10 mg tablet Take 1.5 tablets (15 mg total) by mouth 2 (two) times a day 08/10/[address] (CYMBALTA) 20 mg capsule [...] 180 tablet 1 09/16/19 25 025 Active lidocaine (ASPERCREME) 4 % adhesive patch,medicated Place 1 patch on the skin daily 09/20/19 25 Active rosuvastatin (CRESTOR) 5 mg tablet Take 1 tablet (5 mg total) by mouth daily 90 tablet 1 09/28/19 25 Active predniSONE (DELTASONE) 5 mg tablet Take 1.5 tablets (7.5 mg) by mouth daily 45 tablet 10/02/19 25 Active norethindrone-e.es tradioL-iron (LOESTIN 24 FE) 1 mg-20 mcg (24)/75 mg (4) per tablet Take 1 tablet by mouth daily Active meclizine (ANTIVERT) 12.5 mg tabletIndications: Dizziness Take 1 tablet (12.5 mg total) by mouth 3 (three) times a day as needed for dizziness 90 tablet 2 10/03/19 25 Active rosuvastatin (CRESTOR) 5 mg tablet Take 1 tablet (5 mg total) by mouth daily 025 Discontin ued(Reord er) Active Problems Problem Noted Date Diagnosed Date Spinal stenosis of lumbar re gion without neurogenic claudication 10/03/2024 Chronic bilateral low back pain without sciatica 12/07/2023 Overview (09/20/2024): Chronic back pain Degenerative changes and lumbar stenosis Injection approx 2021 Weight management September 2024 - to Neurosurg Mixed hyperlipidemia 10/24/2022 Overview (06/27/2024): Chronic, stable [...] utilize baclofen as needed. May also utilize usgq-jyj-[id number] icy Hot with lidocaine patches. 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) 08/18/2008 Benign essential hypertension 08/18/2008 Overview (09/20/2024): Chronic, stable condition on Lisinopril Continue same medications Assessment & Plan (10/17/2022 3:09 PM CDT): [...] Hep B, Unspecified 06/23/1997, 7,1996,05/22 Hib (PRP-T) 09/15/1997,199 7,1996,07/22 IPV 05/14/2001 Influenza, Trivalent, Cell Culture-based [...] on file Legal Sex Female 11:04 PM BILLIARD TABLE MECHANIC Gender Identity Female 05/29/2024 7:45 PM BILLIARD TABLE MECHANIC Sexual Orientation Lesbian 05/29/2024 7: 45 PM BILLIARD TABLE MECHANIC Last Filed Vital Signs Vital Sign Reading Time Taken Comments Blood Pressure 102/62 10/02/2024 4:01 PM CDT Pulse 101 10/02/2024 4:01 PM CDT Temperature 36.3 C (97.3 F) 10/02/2024 4:01 PM CDT Respiratory Rate 16 10/02/2024 4:01 PM CDT Oxygen Saturation 99% 10/03/2024 7:39 AM CDT Inhaled Oxygen Concentration - - Weight 104.9 kg (231 lb 3.2 oz) 10/03/2024 7:39 AM CDT Height 170.2 cm (5' 7) 10/03/2024 7:39 AM CDT Body Mass Index 36.21 10/03/2024 7:39 AM CDT Plan of Treatment Not on file Procedures Procedure Name Priority Date/Time Associated Diagnosis Comments MRI LUMBAR SPINE WO CONTRAST Schedule Routine, Read Routine (OP Routine) 10/05/2024 3:19 PM CDT Low back pain, unspecified back pain laterality, unspecified chronicity, unspecified whether sciatica present XR LUMBAR SPINE AP LAT FLEX EX Schedule Routine, Read Routine (OP Routine) 10/03/2024 8:31 AM CDT Degeneration of intervertebral disc of lumbar region with discogenic back pain Spinal stenosis of lumbar region without neurogenic claudication XR SCOLIOSIS AP LAT Schedule Routine, Read Routine (OP Routine) 10/03/2024 8:31 AM CDT Degeneration of intervertebral disc of lumbar region with discogenic back pain Spinal stenosis of lumbar region without neurogenic claudication ECG 12-LEAD Routine 10/01/2024 11:04 AM CDT AV block MSK MR OUTSIDE REFERENCE Routine 09/19/2024 12:00 AM CDT XR HAND LEFT 2 VIEWS Schedule Routine, [...] Pain in both hands Elevated sed rate HEMOGLOBIN A1C Routine 06/19/2024 9:54 AM CDT Type 2 diabetes mellitus without complication, without long-term current use of insulin (HCC) LIPID PANEL Routine 06/19/2024 9:54 AM CDT Mixed hyperlipidemia DIABETIC EYE EXAM Routine 12/26/2023 ALBUMIN CREATININE RATIO, URINE Routine 11/06/2023 10:16 AM CDT Type 2 diabetes mellitus with other specified complication, without long-term current use of insulin (HCC) from Last 3 Months or Most Recently Relevant to Health Maintenance Results * MRI Lumbar Spine WO Contrast (10/05/2024 3:19 PM CDT) Anatomical Region Laterality Modality Spine N/A Magnetic Resonan ce 10/07/2024 2:39 PM CDT Impressions 10/07/2024 3:13 PM CDT Disc bulge with superimposed left paracentral disc protrusion causes at least moderate left lateral recess stenosis at the level of L5-S1 with possible impingement of the traversing left S1 nerve root. Central disc protrusion at L4-L5 abuts the traversing L5 nerve roots. Dictated by: Cory Gill D.O. The radiology attending physician has personally reviewed this study, and had reviewed and/or edited this written report and agrees with it. Electronically signed by: Jaswant Macdonald M.D. Narrative 10/07/2024 3:13 PM CDT EXAMINATION: Magnetic resonance imaging (MRI) of the lumbar spine without contrast HISTORY: 29 years-old Female with increased back pain. TECHNIQUE: Multiplanar multi-weighted MRI of the lumbar spine was performed without intravenous contrast using the standard protocol. COMPARISON: CT lumbar spine 09/19/2024 FINDINGS: The alignment of the lumbar spine is normal. Vertebral bodies demonstrate normal signal intensity on all sequences. There are no compression fractures. The conus medullaris terminates at the level of L1-L2. The distal spinal cord signal intensity is normal. Degenerative disc desiccation at L4-L5 and L5-S1. Annular fissures are present at L4-L5 and L5-S1. Limited views of the abdomen and pelvis show no soft tissue abnormality. The aorta is normal. L1-L2: The disc is normal in configuration. There is mild bilateral facet arthropathy. There is no neuroforaminal stenosis. There is no spinal canal stenosis. L2-L3: Mild eccentric left disc bulge. There is mild bilateral facet arthropathy. There is no neuroforaminal stenosis. There is no spinal canal stenosis. L3-L4: The disc is normal in configuration. There is mild bilateral facet arthropathy. There is no neuroforaminal stenosis. There is no spinal canal stenosis. L4-L5: Disc bulge with superimposed central disc protrusion. There is moderate bilateral facet arthropathy. There is no neuroforaminal stenosis. There is moderate spinal canal stenosis. Disc bulge abuts the traversing L5 nerve roots. L5-S1: Disc bulge with superimposed left paracentral disc protrusion. There is mild bilateral facet arthropathy. There is moderate right and mild left neuroforaminal stenosis. There is mild spinal canal stenosis. At least moderate left lateral recess stenosis. Procedure Note Jaswant Macdonald MD PhD - 10/07/2024 EXAMINATION: Magnetic resonance imaging (MRI) of the lumbar spine without contrast HISTORY: 29 years-old Female with increased back pain. TECHNIQUE: Multiplanar multi-weighted MRI of the lumbar spine was performed without intravenous contrast using the standard protocol. COMPARISON: CT lumbar spine 09/19/2024 FINDINGS: The alignment of the lumbar spine is normal. Vertebral bodies demonstrate normal signal intensity on all sequences. There are no compression fractures. The conus medullaris terminates at the level of L1-L2. The distal spinal cord signal intensity is normal. Degenerative disc desiccation at L4-L5 and L5-S1. Annular fissures are present at L4-L5 and L5-S1. Limited views of the abdomen and pelvis show no soft tissue abnormality. The aorta is normal. L1-L2: The disc is normal in configuration. There is mild bilateral facet arthropathy. There is no neuroforaminal stenosis. There is no spinal canal stenosis. L2-L3: Mild eccentric left disc bulge. There is mild bilateral facet arthropathy. There is no neuroforaminal stenosis. There is no spinal canal stenosis. L3-L4: The disc is normal in configuration. There is mild bilateral facet arthropathy. There is no neuroforaminal stenosis. There is no spinal canal stenosis. L4-L5: Disc bulge with superimposed central disc protrusion. There is moderate bilateral facet arthropathy. There is no neuroforaminal stenosis. There is moderate spinal canal stenosis. Disc bulge abuts the traversing L5 nerve roots. L5-S1: Disc bulge with superimposed left paracentral disc protrusion. There is mild bilateral facet arthropathy. There is moderate right and mild left neuroforaminal stenosis. There is mild spinal canal stenosis. At least moderate left lateral recess stenosis. IMPRESSION: Disc bulge with superimposed left paracentral disc protrusion causes at least moderate left lateral recess stenosis at the level of L5-S1 with possible impingement of the traversing left S1 nerve root. Central disc protrusion at L4-L5 abuts the traversing L5 nerve roots. Dictated by: Cory Gill D.O. The radiology attending physician has personally reviewed this study, and had reviewed and/or edited this written report and agrees with it. Electronically signed by: Jaswant Macdonald M.D. us Dima Hamilton DO IMG MRI PROCEDURES Fin al Result * XR Spine Lumbar Ap Lat Flex Ext min 4 Views (10/03/2024 8:31 AM CDT) Anatomical Region Laterality Modality L-spine N/A Computed Radiogr aphy 10/04/2024 9:12 AM CDT Narrative 10/04/2024 9:25 AM CDT EXAM DESCRIPTION: 1. XR SCOLIOSIS AP AND LATERAL; 2. XR SPINE LUMBAR AP LAT FLEX EXT MIN 4 VIEWS REASON FOR STUDY: back pain LBP radiates down both legs, numbness and tingling in legs x 3 yrs, NKI FINDINGS: Two views thoracolumbar spine and subsequently 4 dedicated views lumbar spine submitted with comparison 09/19/2024. No acute fracture. Mild multilevel thoracic degenerative disc disease. Inferior cervical degenerative disc disease is present. Mild dextrocurvature of the lumbar spine. Mild L4-S1 degenerative disc disease with moderate inferior lumbar facet osteoarthritis. Flexion-extension views demonstrate no abnormal translation. IMPRESSION: 1. Mild multilevel thoracic degenerative disc disease. 2. Mild L4-S1 degenerative disc disease with moderate inferior lumbar facet osteoarthritis. THIS IS AN ELECTRONICALLY VERIFIED FINAL REPORT 10/04/2024 9:25 AM - Electronically signed by Henry DENSON T: Report ID: [id number] Reading Location: [place] [address] Procedure Note Henry Vuong MD - 10/04/2024 EXAM DESCRIPTION: 1. XR SCOLIOSIS AP AND LATERAL; 2. XR SPINE LUMBAR AP LAT FLEX EXT MIN 4 VIEWS REASON FOR STUDY: back pain LBP radiates down both legs, numbness and tingling in legs x 3 yrs, NKI FINDINGS: Two views thoracolumbar spine and subsequently 4 dedicated views lumbar spine submitted with comparison 09/19/2024. No acute fracture. Mild multilevel thoracic degenerative disc disease. Inferior cervical degenerative disc disease is present. Milddextrocurvature of the lumbar spine. Mild L4-S1 degenerative disc disease with moderate inferior lumbar facet osteoarthritis. Flexion-extension views demonstrateno abnormal translation. IMPRESSION: 1. Mild multilevel thoracic degenerative disc disease. 2. Mild L4-S1 degenerative disc disease with moderate inferior lumbarfacet osteoarthritis. THIS IS AN ELECTRONICALLY VERIFIED FINAL REPORT 10/04/2024 9:25 AM - Electronically signed by Henry Vuong M.D. T: Report ID: [id number] Reading Location: [id number] Ryan OLMOS IMG XR PROCEDURES Final Re sult * XR Scoliosis 2 or 3 Views (10/03/2024 8:31 AM CDT) Anatomical Region Laterality Modality Spine N/A Computed Radiogr aphy 10/04/2024 9:12 AM CDT Narrative 10/04/2024 9:25 AM CDT EXAM DESCRIPTION: 1. XR SCOLIOSIS AP AND LATERAL; 2. XR SPINE LUMBAR AP LAT FLEX EXT MIN 4 VIEWS REASON FOR STUDY: back pain LBP radiates down both legs, numbness and tingling in legs x 3 yrs, NKI FINDINGS: Two views thoracolumbar spine and subsequently 4 dedicated views lumbar spine submitted with comparison 09/19/2024. No acute fracture. Mild multilevel thoracic degenerative disc disease. Inferior cervical degenerative disc disease is present. Mild dextrocurvature of the lumbar spine. Mild L4-S1 degenerative disc disease with moderate inferior lumbar facet osteoarthritis. Flexion-extension views demonstrate no abnormal translation. IMPRESSION: 1. Mild multilevel thoracic degenerative disc disease. 2. Mild L4-S1 degenerative disc disease with moderate inferior lumbar facet osteoarthritis. THIS IS AN ELECTRONICALLY VERIFIED FINAL REPORT 10/04/2024 9:25 AM - Electronically signed by Henry Vuogn M.D. T: Report ID: [id number] Reading Location: [id number] Procedure Note Henry Vuong MD - 10/04/2024 EXAM DESCRIPTION: 1. XR SCOLIOSIS AP AND LATERAL; 2. XR SPINE LUMBAR AP LAT FLEX EXT MIN 4 VIEWS REASON FOR STUDY: back pain LBP radiates down both legs, numbness and tingling in legs x 3 yrs, NKI FINDINGS: Two views thoracolumbar spine and subsequently 4 dedicated views lumbar spine submitted with comparison 09/19/2024. No acute fracture. Mild multilevel thoracic degenerative disc disease. Inferior cervical degenerative disc disease is present. Milddextrocurvature of the lumbar spine. Mild L4-S1 degenerative disc disease with moderate inferior lumbar facet osteoarthritis. Flexion-extension views demonstrateno abnormal translation. IMPRESSION: 1. Mild multilevel thoracic degenerative disc disease. 2. Mild L4-S1 degenerative disc disease with moderate inferior lumbarfacet osteoarthritis. THIS IS AN ELECTRONICALLY VERIFIED FINAL REPORT 10/04/2024 9:25 AM - Electronically signed by Henry Vuong M.D. T: Report ID: [id number] Reading Location: [place] [address] us Ryan OLMOS IMG XR PROCEDURES Final Re sult * ECG 12 lead (10/01/2024 11:04 AM CDT) Gavino Talavera MD ECG ORDERABLES Final Resul t * MSK MR Outside Reference (09/19/2024 12:00 AM CDT) Narrative FRANSISCA_RONY_MHB_MHE - 10/03/2024 7:34 AM CDT This order has been auto-finalized and does not contain a result. us Provider Transcribed Order IMG MRI PROCEDURES Fi nal Result RAD_CLARIO_MHB_MHE * XR Hand Right 2 Views (09/10/2024 [...] last revised on 2019. Testing performed by: [facility], [address] [place] [address]., [id number] Blood 09/10/2024 3:46 PM CDT 09/10/2024 6:34 PM CDT Rachel Hirsch NP LAB BLOOD ORDERABLES Fi nal Result [facility] [id number] [facility]. Department [place] [address] * eGFR (09/10/2024 3:46 PM [...] Inclusion of Race in Diagnosing Kidney Disease, SN 2020). The CKD-EPI equation should not be used for patients with unstable renal function and has not been validated in children and those over 70. Current interpretive data was last reviewed 2021. Blood 09/10/2024 3:46 PM CDT 09/10/2024 3:58 PM CDT Rachel Hirsch NP LAB BLOOD ORDERABLES nal Result [facility] [address] [facility]. Department [place] [address] * (ABNORMAL) Differential, auto (09/10/2024 3:46 PM CDT) Neutrophil abs 6.53(H) 1.50 - 6.50 K/cumm Imm gran abs 0.04 0.00 - 0.10 K/cumm [facility] Lymphocyte abs 2.72 0.80 - 3.30 K/cumm [facility] Monocyte abs 0.55 0.20 - 0.80 K/cumm [facility] Eosinophil abs 0.07 0.00 - 0.50 K/cumm [facility] Basophil abs 0.04 0.00 - 0.10 K/cumm [facility] Neutrophil pct 65.7 % [facility] Comment: Interpretive Data Percent cell count reference ranges are not reported, since discordance with absolute values may lead to misinterpretation of CBC data. Current Interpretive Data was last revised on 2017. Imm gran pct 0.4 % [facility] Comment: Interpretive Data Percent cell count reference ranges are not reported, since discordance with absolute values may lead to misinterpretation of CBC data. Current Interpretive Data was last revised on 2017. Lymphocyte pct 27.3 % [facility] Comment: Interpretive Data Percent cell count reference ranges are not reported, since discordance with absolute values may lead to misinterpretation of CBC data. Current Interpretive Data was last revised on 2017. Monocyte pct 5.5 % [facility] Comment: Interpretive Data Percent cell count reference ranges are not reported, since discordance with absolute values may lead to misinterpretation of CBC data. Current Interpretive Data was last revised on 2017. Eosinophil pct 0.7 % [facility] Comment: Interpretive Data Percent cell count reference ranges are not reported, since discordance with absolute values may lead to misinterpretation of CBC data. Current Interpretive Data was last revised on 2017. Basophil pct 0.4 % [facility] Comment: Interpretive Data Percent cell count reference ranges are not reported, since discordance with absolute values may lead to misinterpretation of CBC data. Current Interpretive Data was last revised on 2017. Blood 09/10/2024 3:46 PM CDT 09/10/2024 3:58 PM CDT Rachel Hirsch SENIOR PROJECT MANAGER ENGINEERING LAB BLOOD ORDERABLES nal Result [facility] [address] [facility]. Department [place] [address] * (ABNORMAL) CBC with auto differential (09/10/2024 3:46 PM CDT) WBC 9.95(H) 3.80 - 9.90 K/cumm Hgb 13.6 11.9 - 15.5 g/dL [facility] Hct 41.4 35.6 - 45.5 % [facility] Plt 284 150 - 400 K/cumm [facility] MPV 11.7 9.1 - 12.3 fL [facility] RBC 4.77 3.90 - 5.20 M/cumm [facility] MCV 86.8 81.3 - 96.4 fL [facility] MCH 28.5 27.1 - 33.3 pg [facility] MCHC 32.9 32.3 - 35.7 g/dL [facility] RDW CV 13.2 11.1 - 14.9 % [facility] RDW SD 41.1 35.7 - 48.1 fL [facility] NRBC abs 0.00 0.00 - 0.01 K/cumm [facility] Blood 09/10/2024 3:46 PM CDT 09/10/2024 3:58 PM CDT Rachel Hirsch SENIOR PROJECT MANAGER ENGINEERING LAB BLOOD ORDERABLES Fi nal Result Performing Organization Address [facility] Co de Phone Number [facility] [address] [facility] [facility] [place] [address] * (ABNORMAL) Cyclic citrul peptide antibody, IgG (09/10/2024 3:46 PM CDT) CCP Ab >300.0(H) <=2.9 units/mL Comment: Interpretive data Negative: <3 units/mL Positive: > or equal to 3 units/mL Current interpretive data was last revised on 2016. Testing performed by: [facility], [address] [place] [address]., [id number] Blood 09/10/2024 3:46 PM CDT 09/10/2024 6:34 PM CDT Rachel Hirsch SENIOR PROJECT MANAGER ENGINEERING LAB BLOOD ORDERABLES Fi nal Result Performing Organization Address [facility] Co de Phone Number [facility]ION [facility] [address] [facility]. [facility] [place] [address] * Hepatitis panel, acute Blood (09/10/2024 3:46 PM CDT) Hep A IgM Nonreactive Nonreactive Comment: Interpretive Data: If Hep A IgM Ab is reported as Equivocal, a new sample should be drawn in two weeks for testing. Current interpretive data was last revised on 19. Testing performed by: [facility], [address] [place] [address]., [id number] Hep B core IgM Nonreactive Nonreactive [facility] Comment: Interpretive Data If HepB Core IgM Ab is reported as Equivocal, a new sample should be drawn in two weeks for testing. Current interpretive data was last revised on 19. Testing performed by: [facility], [address] [place] [address]., [id number] Hep C Ab Nonreactive Nonreactive [facility] [address] Comment: Interpretive Data Nonreactive: Antibodies to HCV [...] last revised on 2019. Testing performed by: [facility], [address] [place] [address]., [id number] HepBsAg Nonreactive Nonreactive [address] [address] Comment:Testing performed by : [facility], [address] [place] [address]., [id number] Blood 09/10/2024 3:46 PM CDT 09/10/2024 7:33 PM CDT Rachel Hirsch NP LAB MICROBIOLOGY - GENE RAL ORDERABLES Final Result Performing Organization Address City/[facility]/ZIP Co de Phone Number [facility] [address] [place] [address] * (ABNORMAL) Erythrocyte sedimentation rate (09/10/2024 3:46 PM CDT) Erythrocyte sedimentation rate 22(H) 1 - 20 mm/hr Blood 09/10/2024 3:46 PM CDT 09/10/2024 3:58 PM CDT Rachel Hirsch NP LAB BLOOD ORDERABLES Fi nal Result Performing Organization Address City/[facility]/ZIP Co de Phone Number [facility] [address] [place] [address] * CRP (acute phase) (09/10/2024 3:46 PM CDT) CRP 3.8 <=10.0 mg/L Blood 09/10/2024 3:46 PM CDT 09/10/2024 3:58 PM CDT Rachel Hirsch SENIOR PROJECT MANAGER ENGINEERING LAB BLOOD ORDERABLES Fi nal Result [facility] [address] [facility] [place] [address] * Comprehensive metabolic panel (09/10/2024 3:46 PM CDT) Pathologist [facility] Sodium 141 135 - 145 mmol/L Potassium, pl 4.1 3.3 - 4.9 mmol/L [facility] Chloride 99 97 - 110 mmol/L [facility] CO2 28 22 - 32 mmol/L [facility] Anion gap 14 2 - 15 mmol/L [facility] BUN 15 6 - 25 mg/dL [facility] Creatinine 0.77 0.60 - 1.10 mg/dL [facility] Glucose 183 70 - 199 mg/dL [facility] Comment: Interpretive Data Fasting glucose >/= 126 [...] [facility] AST 22 10 - 45 Units/L [facility] Blood 09/10/2024 3:46 PM CDT 09/10/2024 3:58 PM CDT us Rachel Hirsch NP LAB BLOOD ORDERABLES Fi nal Result [facility] [address] [facility] [place] [address] * XR Foot Right 3+ Vw (08/12/2024 [...] Henry Vuong M.D. MF: JARETT Report ID: [id number] Reading Location: [id number] Procedure Note Henry Vuong MD - 08/12/2024 [...] Henry Vuong M.D. MF: JARETT Report ID: [id number] Reading Location: [id number] Dima Hamilton DO IMG XR PROCEDURES Milly [...] Henry Vuong M.D. MF: JARETT Report ID: [id number] Reading Location: [id number] Procedure Note Henry Vuong MD - 08/12/2024 [...] Henry Vuong M.D. MF: JARETT Report ID: [id number] Reading Location: [id number] us Dima Hamilton DO IMG XR PROCEDURES Milly [...] Henry Vuong M.D. MF: JARETT Report ID: [id number] Reading Location: [address] Note Henry Vuong MD - 08/12/2024 EXAM [...] Henry Vuong M.D. MF: JARETT Report ID: [id number] Reading Location: [id number] Dima Loyd Keyser DO IMG XR PROCEDURES Milly l Result * (ABNORMAL) Rheumatoid factor (07/22/2024 12:52 PM CDT) Pathologist [facility] Rheumatoid factor, quant 54.3(H) <=15.0 IUnits/mL Blood 07/22/2024 12:5 2 PM CDT 07/22/2024 4:55 PM CDT Dima Loyd Alfonso DO LAB BLOOD ORDERABLES F inal Result [facility] [address] [facility] Department [place] [address] * (ABNORMAL) Hemoglobin A1c (06/19/2024 9:54 AM CDT) [facility] Hgb A1C 9.5(H) 4.0 - 5.6 % Comment:Testing performed by : [address] [address] Estimated Average Glucose 226 mg/dL [facility] Comment: The ADA recommends reporting an estimated Average Glucose (eAG) with all Hemoglobin A1c results using the equation derived from a study of 507 normal and diabetic adults. Minority populations were underrepresented and children were not included. (Diabetes Care 31:0600-1033, 2008). The eAG is not equivalent to a fasting glucose. Testing performed by: [address] [address] Blood 06/19/2024 9:54 AM CDT 06/19/2024 10:25 AM CDT us Dima Loyd Alfonso DO LAB BLOOD ORDERABLES F inal Result [facility] [address] [facility] Department [place] [address] * (ABNORMAL) Lipid panel (06/19/2024 9:54 AM [...] last revised on 2017. Testing performed by: [address] [address] Triglycerides 546(H) <=149 mg/dL DION Comment: Interpretive [...] last revised on 2017. Testing performed by: [address] [address] HDL 30(L) >=40 mg/dL DION Comment: Interpretive [...] last revised on 2017. Testing performed by: [address] [address] LDL, calculated See Comment <=129 mg/dL DION [...] NCEP Expert Panel. Circulation 2004;110:227 3. Ulisses Smith al. NARCISA Cardiol. 2019August 08;5(5):540-548. doi: 10.1001/jamacardio.2020.0013 Current Interpretive Data was last revised on 2023. Testing performed by: [address] [address] Non-HDL Cholesterol 165 mg/dL [facility] Comment: [...] last revised on 2017. Testing performed by: [address] [address] Chol/HDL ratio 6 [facility] Comment:Testing performed by : [address] [address] Blood 06/19/2024 9:54 AM CDT 06/19/2024 10:27 AM CDT [employer] LAB BLOOD ORDERABLES F inal Result Performing Organization Address [facility]/ZIP Co de Phone Number [facility]ION [address] [facility] [place] [address] * Diabetic Eye Exam (12/26/2023) Historical Provider MD HEALTH MAINTENANCE Final Result * (ABNORMAL) Albumin Creatinine Ratio, Urine (11/06/2023 10:16 AM CDT) Albumin Ur 339.5 mg/L Comment: Interpretive Data No reference range established. Current interpretive data was last revised 2018. Testing performed by: [address] [address] Creatinine Ur 111.2 mg/dL [facility] Comment: Interpretive Data No reference range established. Current interpretive data was last revised 2018. Testing performed by: [address] [address] Albumin Creatinine Ratio, Ur 305(H) 1 - 29 mg/g [facility] Comment:Testing performed by : [address] [address] Urine 11/06/2023 10:1 6 AM CDT 11/06/2023 11:52 AM CDT [employer] LAB URINE ORDERABLES F inal Result Performing Organization Address City/[facility]/ZIP Co de Phone Number [facility] [address] [facility] [place] [address] from Last 3 Months or Most Recently Relevant to Health Maintenance Insurance [employer] HMO PPO Member Subscriber Plan / Payer (Ef fective 2021-Present) Name:TianneshaCherelle Relation to Subscriber:Self Name:Cherelle Dave Payer ID:[id number] (NAIC) Group ID:[id number] Type:MEDICARE RISK OTHER Address: [address] [facility] [employer] [address] [place] [address] [facility] AD[facility]ANT [facility] Care Teams Generation Manager Relationship Specialty Start Date End Date Dima Hamilton DO [address] [place] [id number] PCP - General Family Medicine 11/06/23 Chanda Coburn NP [facility] [place] [address] Nurse Practitioner Neurology 10/03/24
--- OUTSIDE RECORDS SUMMARY | 2024-10-11 14:00 | XMS_ITS | Patient Health Record ---
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 struggling with impulsivity, such as planning a six-month trip on short notice. - Plan: - Continue working on behavioral strategies, including problem-solving and communication skills. - Consider attending Dialectical Behavior Therapy (DBT) again, despite previous experiences. - Focus on practicing Rader Mind and Radical Acceptance techniques. - Monitor self-injurious behaviors and impulsivity. Childhood trauma - Plan: - Encourage patient to seek EMDR therapy for trauma processing. - Provide patient with referral to Venus Zamudio, an EMDR therapist in [place]. Anxiety and mood instability - Assessment: Patient reports struggling with anxiety related to finances, including being a month behind on rent. - Plan: - Encourage patient to continue practicing mindfulness techniques, such as bringing in logic during emotional moments. - Monitor patient's progress in managing anxiety related to finances and personal relationships. Medication adherence - Assessment: Patient admits to not taking medications consistently and struggling with adherence. - Plan: - Encourage patient to establish a routine for taking medications, such as filling pillboxes weekly. - Monitor patient's adherence to medications, including mental health and other medications. 01/12/2024 Attention-defici t hyperactivity disorder, combined type (ICD-10 - F90.2) 01/12/2024 Post-traumatic stress disorder, chronic (ICD-10 - F43.12) 01/09/2024 Post-traumatic stress disorder, chronic (ICD-10 - F43.12) Borderline Personality Disorder (BPD) - Assessment: Patient reports struggling with impulsivity, such as planning a six-month trip on short notice. - Plan: - Continue working on behavioral strategies, including problem-solving and communication skills. - Consider attending Dialectical Behavior Therapy (DBT) again, despite previous experiences. - Focus on practicing Rader Mind and Radical Acceptance techniques. - Monitor self-injurious behaviors and impulsivity. Childhood trauma - Plan: - Encourage patient to seek EMDR therapy for trauma processing. - Provide patient with referral to Venus Zamudio, an EMDR therapist in [place]. Anxiety and mood instability - Assessment: Patient reports struggling with anxiety related to finances, including being a month behind on rent. - Plan: - Encourage patient to continue practicing mindfulness techniques, such as bringing in logic during emotional moments. - Monitor patient's progress in managing anxiety related to finances and personal relationships. Medication adherence - Assessment: Patient admits to not taking medications consistently and struggling with adherence. - Plan: - Encourage patient to establish a routine for taking medications, such as filling pillboxes weekly. - Monitor patient's adherence to medications, including mental health and other medications. 11/17/2023 Post-traumatic stress disorder, chronic (ICD-10 - F43.12) 11/17/2023 Other Start Buspar 5mg BID for anxiety, likely will need higher dose given history, will continue to re-evaluate anxiety at next apt. Patient educated on all medications including potential benefits, side effects, risks. Educated on proper dosing schedule and importance of compliance. 01/12/2024 Other Increase Buspar to 10mg BID for irritability, anxiety. Patient educated on all medications including potential benefits, side effects, risks. Educated on proper dosing schedule and importance of compliance. Counseling list provided Plan Of Treatment No Information Insurance Providers Payer Name Payer Address Payer Phone Subscriber Number Group Number Insured Name Patient Relationship to Insured Coverage Start Date Coverage End Date [employer] Medicare Replacemen t/Advantag e - Ppo [address] [place] [address] [id number] [place] SHORT[place] GONZALES Self - patient is the insured Medicaid-I l Medicaid [address] [address] [place] [address] [id number] SHORTY PUTNAM Self - patient is the insured Medical (General) History Medical History History ICD Code Problems: Attention deficit hyperactivit y disorder, combined type Bipolar affective disorder, current epis ode depression Chronic post-traumatic stress disorder Generalized anxiety disorder , Past Psychiatric History: An xiety Disorder,PTSD,Major Depressive Episode,Bipolar Disorder abdominal aortic aneurysm: No atrial fibrillation: No chronic fatigue syndrome: No essential tremor: No hyperlipidemia: Yes hypertension: No Parkinson's disease: No restless leg syndrome: No stroke: No subdural hematoma: No type 1 diabetes mellitus: No type 2 diabetes mellitus: Yes vitamin B12 deficiency: No vitamin D deficiency: Yes Surgical History Surgery Date(Month/Year) Tonsilectomy/adenoids Any surgical history
--- OUTSIDE RECORDS SUMMARY | 2024-10-11 14:00 | XMS_ITS | Encounter Summary ---
Author Organization [facility] Healthcare Address [address] [place] [address] Care Team Providers Care Golf Course Equipment Operator Name Role Phone Dima Hamilton DO Primary Care Provider Chanda Coburn CUSTOMER EXPERIENCE ANALYST Unavailable [phone] Encounter Details Date Type Department Care Team (Late st Contact Info) Description 10/07/2024 Results Follow-Up [facility] Primary Care [address] [facility] [address] [place] [address] Dima Hamilton DO [address] [facility] [address] [place] [address] MRI Lumbar Spine WO Contrast Social History Tobacco Use Types Packs/Day Years [...] on file Legal Sex Female 11:04 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
--- OUTSIDE RECORDS SUMMARY | 2024-10-11 14:00 | XMS_ITS | Clinical Summary ---
Author Organization [facility] er Address [address] [place] [address] Care Team Providers Care I&C Tech Name Role Phone Dima Hamilton DO Primary Care Provider Chanda Coburn INFORMATICA MDM DEVELOPER Unavailable [phone] Allergies Active Allergy Reactions Criticality Noted Date [...] 3 mL 2 06/28/19 25 Active rizatriptan TODDLER LEAD TEACHER (MAXALT-TODDLER LEAD TEACHER) 10 mg disintegrating tabletIndications: Migraine without aura [...] utilize baclofen as needed. May also utilize ddqx-pgo-[id number] icy Hot with lidocaine patches. Borderline personality [...] Department Care Team Description 10/07/2024 [address] Follow-Up [facility] Primary Care [address] [place] [phone] Dima Hamilton, MRI Lumbar Spine WO Contrast 10/05/2024 2:01 PM CDT - 10/05/2024 11:59 PM CDT Hospital Encounter [facility] - Imaging [address] [place] [address] Low back pain, unspecified back pain laterality, unspecified chronicity, unspecified whether sciatica present Discharge Disposition: Discharge to home or self care 10/03/2024 8:16 AM CDT - 10/03/2024 11:59 PM CDT Hospital Encounter [facility] [address] [place] [address] Degeneration of intervertebral disc of lumbar region with discogenic back pain; Spinal stenosis of lumbar region without neurogenic claudication Discharge Disposition: Discharge to home or self care 10/03/2024 8:00 AM CDT Office Visit [facility] [address] [place] [address] 3, [address] [place] [phone] Ryan Vee PA Spinal stenosis of lumbar region without neurogenic claudication (Primary Dx); Degeneration of intervertebral disc of lumbar region with discogenic back pain; BMI 36.0-36.9,adult; Type 2 diabetes mellitus without complication, with no history of insulin use (HCC) 10/02/2024 4:[address] CD[address] [facility] Primary Care [address] [place] [address] Dima Hamilton DO Benign essential hypertension (Primary Dx); Migraine without aura and without status migrainosus, not intractable; Near syncope; Dizziness; Generalized anxiety disorder; Morbid obesity (HCC); Type 2 diabetes mellitus with other specified complication, without long-term current use of insulin (HCC) 10/01/2024 11:30 AM CDT Ancillary Procedure [facility] Cardiology [address] [place] [address] [address] [place] [address] AV block 10/01/2024 10:45 AM CDT Office Visit [facility] [address] [place] [address] [address] [place] [address] Gavino Talavera MD AV block (Primary Dx) 10/01/2024 Telephone [facility] Rheumatology [address] [facility] Medical Office Building [address] [place] [address] Treva Dee, ROLDAN Call in flare 09/25/2024 Telephone [facility] Primary Care [address] [place] [address] [address] [place] [address] Maral Guerrero MA Chart Review ([employer] ;med adh) 09/20/2024 10:30 AM CDT Office Visit [facility] Care [address] [place] [address] [address] [place] [address] Dima Hamilton DO Degeneration of intervertebral disc of lumbar region with discogenic back pain (Primary Dx); Spinal stenosis of lumbar region without neurogenic claudication; Chronic bilateral low back pain without sciatica; Benign essential hypertension; Morbid obesity (HCC); Type 2 diabetes mellitus with other specified complication, without long-term current use of insulin (HCC) 09/19/2024 - 09/19/2024 11:59 PM CDT Hospital Encounter [facility] [employer] [address] [place] [address] Discharge Disposition: Discharge to home or self care 09/16/2024 ACO [facility] Care Organization [address] [place] [address] Kristin Burciaga 09/16/[address] [address] Kristin Burciaga Chart Review (error) 09/12/2024 Telephone [facility] Care [address] [place] [address] [place] [phone] Dima Hamilton DO Referral Request 09/10/2024 4:20 PM CDT Lab [facility] [address] [address] [address] Pain in both hands 09/10/2024 3:51 PM CDT - 09/10/2024 11:59 PM CDT Hospital Encounter [facility] Imaging [address] [address] [address] Pain in both hands Discharge Disposition: Discharge to home or self care 09/10/2024 3:20 PM CDT Office Visit [facility] Rheumatology [address] [facility] Medical Office Building [address] [place] [address] Rachel Hirsch, LAURA Pain in both hands; Elevated sed rate 08/19/2024 11:00 AM CDT Therapy [facility] Medical Office Bldg 1 OP Occupational Therapy [address] [place] [address] [address] [place] [address] Ade Eric, OT Pain in both hands (Primary Dx); Sensory processing difficulty 08/19/2024 Telephone [facility] Primary Care [address] [place] [address] [address] [place] [phone] Dima Hamilton DO Insurance Referrals 08/13/2024 1:00 PM CDT Clinical Support [facility] Nutrition Counseling [address] [place] [address] Type 2 diabetes mellitus with other specified complication, without long-term current use of insulin (HCC) (Primary Dx) 08/12/2024 11:15 AM CDT Office Visit [facility] Primary Care [address] [place] [address] [address] [place] [phone] Dima Hamilton DO Pain of toe of left foot (Primary Dx); Acute right ankle pain; Right foot pain; Chronic bilateral low back pain without sciatica 08/12/2024 10:11 AM CDT - 08/12/2024 11:59 PM CDT Hospital Encounter [facility] MOB 1 DIAG IMG [address] [place] [address] Acute right ankle pain; Right foot pain; Pain of toe of left foot Discharge Disposition: Discharge to home or self care 08/12/2024 Results Follow-Up [facility] Primary Care [address] [place] [address] [address] [place] [address] Dmia Hamilton DO XR Ankle Right 3+ Vw 08/07/2024 2:00 PM CDT Therapy [facility] Office Bldg 1 OP Occupational Therapy [address] [place] [address] Yaneth Chong Karen, OT Pain in both hands (Primary Dx); Sensory processing difficulty 08/05/2024 11:00 AM CDT Therapy [facility] Bldg 1 OP Occupational Therapy [address] [place] [address] Eric, Ade, OT Pain in both hands (Primary Dx) 07/29/2024 8:00 AM CDT Therapy [facility] Office Bldg 1 OP Occupational Therapy [address] [place] [address] Eric, Ade, OT Pain in both hands (Primary Dx) 07/24/2024 2:00 PM CDT Therapy [facility] Office Bldg 1 OP Occupational Therapy [address] [place] [address] Eric, Ade, OT Pain in both hands (Primary Dx); Sensory processing difficulty 07/23/2024 Results Follow-Up [facility] Primary Care [address] [place] [phone] Dima Hamilton DO Rheumatoid factor 07/22/2024 12:50 PM CDT Lab [facility] Medical Office Building [address] [place] [address] Pain in both hands; Elevated sed rate 07/22/2024 Letter (Out) [facility] [address] [place] [phone] 07/20/2024 Plan of Care Documentation [facility] Office Bldg 1 OP Occupational Therapy [address] [place] [address] 07/17/2024 1:00 PM CDT Therapy [facility] Office Bldg 1 OP Occupational Therapy [address] [place] [address] Yaneth Chong Karen, OT Pain in both hands; Sensory processing difficulty 07/15/2024 11:00 AM CDT Office Visit [facility] Primary Care [address] [place] [phone] Dima Hamilton DO Moderate episode of recurrent major depressive disorder (HCC) (Primary Dx); Generalized anxiety disorder; Benign essential hypertension; Type 2 diabetes mellitus with other specified complication, without long-term current use of insulin (HCC); Morbid obesity (HCC); Mixed hyperlipidemia; Pain in both hands; Sensory processing difficulty 07/15/2024 ACO Medication Access [address] [address] Catie Cancino CPhT from Last 3 Months Immunizations Immunization Administration [...] on file Legal Sex Female 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 Gender Identity Female 05/29/2024 7:45 PM FRESH FOODS CAKE DECORATOR Sexual Orientation Lesbian 05/29/2024 7: 45 PM FRESH FOODS CAKE DECORATOR Obstetrics History Last Filed Vital Signs Vital [...] 10/03/2024 7:39 AM CDT Plan of Treatment Health Maintenance Due Date Last Done Comments Cervical Cancer Screening 1996 Pneumococcal vaccine <65 (1 of 2 - PCV) 2015 Covid-19 Vaccine (3 - Pfizer risk series) 05/08/2021 04/10/2021, 10/24/2020 Zoster Vaccine (1 of 2) 07/24/2024 Albumin Creatinine Ratio, Urine 11/05/2024 4, 10/18/2022 Regular Well Visit/Exam 18-64 11/05/2024 11/06/2023 Influenza Vaccine (#1) 2024 , 05/28/2024, 04/20/2022, Additional history exists Hemoglobin A1C 12/20/2024 06/19/2024, 10/09, 10/18/2022 Lipid Panel 06/19/2025 06/19/2024, 10/09, 10/18/2022 Depression Screening 06/27/2025 06/27/2024, 06/27/2024, 11/06/2023, Additional history exists Foot Exam 06/27/2025 06/27/2024 eGFR 09/10/2025 09/10/2024, 06/08, 06/07/2024, Additional history exists Dilated Eye Exam 12/25/2025 12/26/2023 DTaP/Tdap/Td Vaccine (8 - Td or Tdap) 05/29/2034 05/29/2024, 11/19/2007, 05/14/2001, Additional history exists HPV Vaccines Completed 09/16/2008, 12/2008, 11/19/2007, Additional history exists Varicella Vaccines Completed 05/29/2024, [...] by Henry Vuong M.D. T: Report ID: [id number] Reading Location: [id number] Procedure Note Henry Vuong MD - 10/04/2024 [...] by Henry Vuong M.D. T: Report ID: [id number] Reading Location: [id number] Ryan OLMOS IMG XR PROCEDURES Final Re [...] by Henry Vuong M.D. T: Report ID: [id number] Reading Location: [id number] Procedure Note Henry Vuong MD - 10/04/2024 [...] by Henry Vuong M.D. T: Report ID: [id number] Reading Location: [id number] Ryan OLMOS IMG XR PROCEDURES Final Re sult * ECG 12 lead (10/01/2024 11:04 AM CDT) Gavino Talavera MD ECG ORDERABLES Final Resul t * MSK MR Outside Reference (09/19/2024 12:00 AM CDT) Narrative RAD_[facility] - 10/03/2024 7:34 AM CDT This order [...] discrete osseous erosions. Procedure Note Boogie Amaya, DO - 09/10/2024 EXAMINATION: XR HAND RIGHT [...] signed by: Boogie Amaya D.O. Rachel Hirsch INFORMATICA MDM DEVELOPER IMG XR PROCEDURES Final Result * G6PD [...] last revised on 2019. Testing performed by: [facility], [address] [facility], [place]., [address] Blood 09/10/2024 3:46 PM CDT 09/10/2024 6:34 PM CDT Rachel Hirsch INFORMATICA MDM DEVELOPER LAB BLOOD ORDERABLES Fi nal Result Performing Organization Address [facility] de Phone Number DION VALADEZCH [address] [facility] [employer] [place], [place] [id number] * eGFR (09/10/2024 3:46 PM CDT) eGFR [...] CDT 09/10/2024 3:58 PM CDT Rachel Hirsch INFORMATICA MDM DEVELOPER LAB BLOOD ORDERABLES Fi nal Result Performing Organization Address [facility] Co de Phone Number DION LANDINWCH [address] [facility] [employer] [place], [place] [id number] * (ABNORMAL) Differential, auto (09/10/2024 3:46 PM CDT) Neutrophil abs 6.53(H) 1.50 - 6.50 K/cumm Imm gran abs 0.04 0.00 - 0.10 K/cumm [facility] Lymphocyte abs 2.72 0.80 - 3.30 K/cumm [facility] Monocyte abs 0.55 0.20 - 0.80 K/cumm [facility] Eosinophil abs 0.07 0.00 - 0.50 K/cumm [facility] Basophil abs 0.04 0.00 - 0.10 K/cumm [facility] Neutrophil pct 65.7 % [facility] Comment: Interpretive Data Percent cell count reference ranges are not reported, since discordance with absolute values may lead to misinterpretation of CBC data. Current Interpretive Data was last revised on 2017. Imm gran pct 0.4 % [facility]ION [facility] Comment: Interpretive Data Percent cell count reference ranges are not reported, since discordance with absolute values may lead to misinterpretation of CBC data. Current Interpretive Data was last revised on 2017. Lymphocyte pct 27.3 % [facility] Comment: Interpretive Data Percent cell count reference ranges are not reported, since discordance with absolute values may lead to misinterpretation of CBC data. Current Interpretive Data was last revised on 2017. Monocyte pct 5.5 % [facility]ION [facility] Comment: Interpretive Data Percent cell count reference ranges are not reported, since discordance with absolute values may lead to misinterpretation of CBC data. Current Interpretive Data was last revised on 2017. Eosinophil pct 0.7 % [facility]ION [facility] Comment: Interpretive Data Percent cell count reference ranges are not reported, since discordance with absolute values may lead to misinterpretation of CBC data. Current Interpretive Data was last revised on 2017. Basophil pct 0.4 % [facility] Comment: Interpretive Data Percent cell count reference ranges are not reported, since discordance with absolute values may lead to misinterpretation of CBC data. Current Interpretive Data was last revised on 2017. Blood 09/10/2024 3:46 PM CDT 09/10/2024 3:58 PM CDT us Rachel Hirsch NP LAB BLOOD ORDERABLES Fi nal Result [facility] [address] [facility] [place] [address] * (ABNORMAL) CBC with auto differential (09/10/2024 3:46 PM CDT) Pathologist [facility] WBC 9.95(H) 3.80 - 9.90 K/cumm Hgb 13.6 11.9 - 15.5 g/dL [facility] Hct 41.4 35.6 - 45.5 % [facility] Plt 284 150 - 400 K/cumm [facility] MPV 11.7 9.1 - 12.3 fL [facility] RBC 4.77 3.90 - 5.20 M/cumm [facility] MCV 86.8 81.3 - 96.4 fL [facility] MCH 28.5 27.1 - 33.3 pg [facility] MCHC 32.9 32.3 - 35.7 g/dL [facility] RDW CV 13.2 11.1 - 14.9 % [facility] RDW SD 41.1 35.7 - 48.1 fL [facility] NRBC abs 0.00 0.00 - 0.01 K/cumm [facility] Blood 09/10/2024 3:46 PM CDT 09/10/2024 3:58 PM CDT Rachel Hirsch INFORMATICA MDM DEVELOPER LAB BLOOD ORDERABLES Fi nal Result [facility] [address] [facility] [place] [address] * (ABNORMAL) Cyclic citrul peptide antibody, IgG (09/10/2024 3:46 PM CDT) [facility] [address] CCP Ab >300.0(H) <=2.9 units/mL Comment: Interpretive data Negative: <3 units/mL Positive: > or equal to 3 units/mL Current interpretive data was last revised on 2016. Testing performed by: [facility], [address] [facility], [place]., [address] Blood 09/10/2024 3:46 PM CDT 09/10/2024 6:34 PM CDT Rachel Hirsch NP LAB BLOOD ORDERABLES nal Result [facility] [address] [facility]. [place] [address] * Hepatitis panel, acute Blood (09/10/2024 3:46 PM CDT) Hep A IgM Nonreactive Nonreactive Comment: Interpretive Data: If Hep A IgM Ab is reported as Equivocal, a new sample should be drawn in two weeks for testing. Current interpretive data was last revised on 19. Testing performed by: [facility], [address] [place] [address]., [address] Hep B core IgM Nonreactive Nonreactive [facility] Comment: Interpretive Data If HepB Core IgM Ab is reported as Equivocal, a new sample should be drawn in two weeks for testing. Current interpretive data was last revised on 19. Testing performed by: [facility], [address] [place] [address]., [address] Hep C Ab Nonreactive Nonreactive [facility] Comment: Interpretive Data Nonreactive: Antibodies to [...] on 2019. Testing performed by: [facility], [address] [place] [address]., [address] HepBsAg Nonreactive Nonreactive [facility] Comment:Testing performed by : [facility], [address] [place] [address]., [address] Blood 09/10/2024 3:46 PM CDT 09/10/2024 7:33 PM CDT us Rachel Hirsch INFORMATICA MDM DEVELOPER LAB MICROBIOLOGY - GENE RAL ORDERABLES Final Result Performing Organization Address [facility] Co de Phone Number DION VALADEZCH [address] [facility] [place] [address] * (ABNORMAL) Erythrocyte sedimentation rate (09/10/2024 3:46 PM CDT) Pathologist [facility] Erythrocyte sedimentation rate 22(H) 1 - 20 mm/hr Blood 09/10/2024 3:46 PM CDT 09/10/2024 3:58 PM CDT us Rachel Hirsch INFORMATICA MDM DEVELOPER LAB BLOOD ORDERABLES Fi nal Result Performing Organization Address [facility] Phone Number DION LANDINWCH [address] [facility] [place] [address] * CRP (acute phase) (09/10/2024 3:46 PM CDT) Pathologist [facility] CRP 3.8 <=10.0 mg/L Blood 09/10/2024 3:46 PM CDT 09/10/2024 3:58 PM CDT us Rachel Hirsch NP LAB BLOOD ORDERABLES Fi nal Result Performing Organization Address [facility] de Phone Number DION LANDINWCH [address] [facility] [place] [address] * Comprehensive metabolic panel (09/10/2024 3:46 PM CDT) Pathologist [facility] Sodium 141 135 - 145 mmol/L Potassium, pl 4.1 3.3 - 4.9 mmol/L [facility] Chloride 99 97 - 110 mmol/L [facility] CO2 28 22 - 32 mmol/L [facility] Anion gap 14 2 - 15 mmol/L [facility] BUN 15 6 - 25 mg/dL [facility] Creatinine 0.77 0.60 - 1.10 mg/dL [facility] [...] Hirsch NP LAB BLOOD ORDERABLES nal Result Performing Organization Address City/State/[facility] Co ar Phone Number DION [facility] [address] [facility] [place] [address] * XR Foot Right 3+ Vw (08/12/2024 [...] Henry Vuong M.D. MF: JARETT Report ID: [id number] Reading Location: [id number] Procedure Note Henry Vuong MD - 08/12/2024 [...] Henry Vuong M.D. MF: JARETT Report ID: [id number] Reading Location: [id number] Dima Hamilton DO IMG XR PROCEDURES Milly linares Result * XR Foot Left 3+ Vw [...] Henry Vuong M.D. MF: JARETT Report ID: [id number] Reading Location: [id number] Procedure Note Henry Vuong MD - 08/12/2024 [...] Henry Vuong M.D. MF: JARETT Report ID: [id number] Reading Location: [place] [address] Dima Hamilton DO IMG XR PROCEDURES Milly [...] Henry Vuong M.D. MF: JARETT Report ID: [id number] Reading Location: [id number] Procedure Note Henry Vuong MD - 08/12/2024 [...] Henry Vuong M.D. MF: JARETT Report ID: [id number] Reading Location: [id number] Dima Hamilton DO IMG XR PROCEDURES Milly l Result * (ABNORMAL) Rheumatoid factor (07/22/2024 12:52 PM CDT) Rheumatoid factor, quant 54.3(H) <=15.0 IUnits/mL Blood 07/22/2024 12:5 2 PM CDT 07/22/2024 4:55 PM CDT [facility] Mosquero DO LAB BLOOD ORDERABLES F inal Result Performing Organization Address [facility] de Phone Number DION [facility] [place] [address] * (ABNORMAL) Hemoglobin A1c (06/19/2024 9:54 AM CDT) Hgb A1C 9.5(H) 4.0 - 5.6 % Comment:Testing performed by : [address] [address] Estimated Average Glucose 226 mg/dL DION Comment: The ADA recommends reporting an estimated Average Glucose (eAG) with all Hemoglobin A1c results using the equation derived from a study of 507 normal and diabetic adults. Minority populations were underrepresented and children were not included. (Diabetes Care 31:1730-0110, 2008). The eAG is not equivalent to a fasting glucose. Testing performed by: [address] [address] Blood 06/19/2024 9:54 AM CDT 06/19/2024 10:25 AM CDT Dima Evert Mosquero DO LAB BLOOD ORDERABLES F inal Result Performing Organization Address [facility] de Phone Number DION [facility] [place] [address] * (ABNORMAL) Lipid panel (06/19/2024 9:54 AM [...] last revised on 2017. Testing performed by: [address] [address] Triglycerides 546(H) <=149 mg/dL DION [facility] Comment: [...] last revised on 2017. Testing performed by: [address] [address] HDL 30(L) >=40 mg/dL DION Comment: Interpretive [...] last revised on 2017. Testing performed by: [address] [address] LDL, calculated See Comment <=129 mg/dL DION Comment: Unable to calculate due to elevated Triglycerides. Interpretive Data Ages < or = 19 years Acceptable: <110 mg/dL Borderline high: 110-129 mg/dL High: >or= 130 mg/dL Ages > or = 20 years Optimal: <100 mg/dL Near optimal: 100-129 mg/dL Borderline high: 130-159 mg/dL High: >160 mg/dL Calculated using the Gtz LDL-C estimating equation. This equation was implemented [...] last revised on 2023. Testing performed by: [address] [address] Non-HDL Cholesterol 165 mg/dL DION Comment: Interpretive Data Ages < [...] last revised on 2017. Testing performed by: [address] [address] Chol/HDL ratio 6 DION Comment:Testing performed by : [address] [address] Blood 06/19/2024 9:54 AM CDT 06/19/2024 10:27 AM CDT Dima Hamilton DO LAB BLOOD ORDERABLES F inal Result DION [address] [facility] Department [place] [address] * Diabetic Eye Exam (12/26/2023) Historical Provider MD HEALTH MAINTENANCE Final Result * (ABNORMAL) Albumin Creatinine Ratio, Urine (11/06/2023 10:16 AM CDT) Albumin Ur 339.5 mg/L Comment: Interpretive Data No reference range established. Current interpretive data was last revised 2018. Testing performed by: [address] [address] Creatinine Ur 111.2 mg/dL [facility]ION [facility] Comment: Interpretive Data No reference range established. Current interpretive data was last revised 2018. Testing performed by: [address] [address] Albumin Creatinine Ratio, Ur 305(H) 1 - 29 mg/g [facility]ION [facility] Comment:Testing performed by : [address] [address] Urine 11/06/2023 10:1 6 AM CDT 11/06/2023 11:52 AM CDT Dima Hamilton DO LAB URINE ORDERABLES F inal Result DION [address] [facility] Department [place] [address] from Last 3 Months or Most Recently Relevant to Health Maintenance Insurance [employer] H[employer] PPO Member Subscriber Plan / Payer (Ef fective 2021-Present) Name:Cherelle Dave Relation to Subscriber:Self Name:Cherelle Dave Payer ID:[id number] (NAIC) Group ID:[id number] Type:MEDICARE RISK OTHER Address: [facility] [id number] DIVISION IDFL [facility] ADVANTRA [facility] AD[employer]TRA IDPA Care Teams I&C Tech Relationship Specialty Start Date End Date Dima Hamilton DO [address] [address] PCP - General Family Medicine 11/06/23 Chanda Coburn NP [address] [address] Nurse Practitioner Neurology 10/03/24
--- OUTSIDE RECORDS SUMMARY | 2024-10-11 14:00 | XMS_ITS | Encounter Summary ---
Author Organization [facility] Healthcare Address [address] [place] [address] Care Team Providers Care Automatic Pinsetter Adjuster Name Role Phone Dima Hamilton DO Primary Care Provider Chanda Coburn [employer]RA[employer] Unavailable [phone] Reason for Visit * Reason Onset Date Comments Referral Request 09/12/2024 Encounter Details Date Type Department Care Team ([facility] st Contact Info) Description 09/12/2024 Telephone [facility] Primary Care [address] [facility] [address] [place] [phone] Dima Hamilton DO 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 No referral auth required, fax sent * Telephone Encounter - Cristian Bruno - 09/12/2024 3:10 PM CDT Referral Provider Name: LAURA South Specialty: OBGYN Address: [address] [place] [address], Zip: [facility] [address] Diagnosis Code/Symptom/Reason Patient is being seen: Z 01.419 Date of Appointment: 09/18/24 NPI#: [id number] Tax ID#: Not provided Is insurance in chart up to date? Yes Additional Comments: Stephania with Dr. South's office called to request insurance authorization to see this patient due to insurance being and HMO. Sending high priority request due to appt appt date. Does message need to be routed? Yes-Action Needed documented in this encounter Plan of Treatment Not on file documented as of this encounter Visit Diagnoses Not on filedocumented in this encounter Care Teams Automatic Pinsetter Adjuster Relationship Specialty Start Date End Date Dima Hamilton DO [address] [place] [id number] PCP - General Family Medicine 11/06/23 Chanda Coburn NP [address] [place] [address] Nurse Practitioner Neurology 10/03/24 documented as of this encounter
--- OUTSIDE RECORDS SUMMARY | 2024-10-11 14:00 | XMS_ITS | Clinical Summary ---
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 12/15/2021 Active loratadine (CLARITIN ORAL) daily. 08/10/2021 Act clay flash glucose scanning reader ([employer]idan 14 Day Jadwin) Misc daily. 07/13/2021 Active busPIRone (BUSPAR) 30 [...] problems Immunizations Immunization Administration Dates Next Due (Smallable)(12 YR UP) COVID-19 VACCINE - EMERGENCY USE AUTHORIZATION, MRNA, [id number](PF) 30 MCG/0.3 ML IM SUSP 04/10/2021,10/24/2020 Family [...] Comments Blood Pressure 128/84 06/09/2022 4:35 PM [employer] Pulse 82 06/09/2022 4:35 PM [employer] Temperature 36.7 C (98 F) 02/18/2022 8:16 AM [employer] Respiratory Rate 20 02/18/2022 8:16 AM [employer] Oxygen Saturation 98% 02/18/2022 8:16 AM [employer] Inhaled Oxygen Concentration - - Weight 115 kg (253 lb 9.6 oz) 06/09/2022 4:35 PM [employer] Height 170.2 cm (5' 7) 06/09/2022 4:35 PM [employer] Body Mass Index 39.72 06/09/2022 4:35 PM [employer] Plan of Treatment Health Maintenance Due Date Last Done Comments DIABETES ANNUAL FOOT EXAM 2014 DIABETES ANNUAL RETINAL EXAM 2014 DIABETES MICROALBUMIN ANNUAL SCREEN 2014 LDL CHOLESTEROL ANNUAL 2014 CERVICAL CANCER SCREENING 2017 HPV/Cotest (21-29) 2017 PAP SMEAR 2017 DTAP/TDAP/TD VACCINES (7 - T d or Tdap) 11/18/2017 11/19/2007, 05/14/2001, 09/15/1997, Additional history exists DIABETES HBA1C Q 6 MONTHS 01/12/2022 07/13/2021 COVID-19 Vaccine (2023-2 5 season) 2023 04/10/2021, 10/24/2020 INFLUENZA VACCINE (#1) 2024 04/20/2022 HEPATITIS B VACCINES Completed 06/23/1997, 1996, 1996, Additional history exists HPV VACCINES Completed 09/16/2008, 11/19/2007 Insurance [facility] MEDICAID [place]
--- OUTSIDE RECORDS SUMMARY | 2024-10-11 14:01 | XMS_ITS | Clinical Summary ---
Author Organization [facility] Address [facility] [place] [address] Care Team Providers Care Envelope Stuffer Name Role Phone Dima Hamilton DO Primary Care Provider [phone] Allergies Active Allergy Reactions Criticality Noted Date Comments Tape Rash Low 04/01/2023 Atorvastatin Rash Low 07/18/2024 Amoxicillin-Pot Clavulanate Rash Low 04/01/20 23 Clonidine Other (see comment) 04/01/2023 Lower's bp Latex Rash Low 04/01/2023 Prazosin Unknown 04/01/2023 Medications baclofen (LIORESAL) 10 MG tablet 3 Active lamoTRIgine (LAMICTAL) 25 MG tablet Take 1 tablet (25 mg total) by mouth 2 (two) times daily. Active semaglutide (OZEMPIC) 2 MG/3ML injection (PEN) Inject 0.25 mg into the skin once a week. 3 Active VRAYLAR 3 MG capsule Take 1 capsule (3 mg total) by mouth daily. 4 Active QELBREE 200 MG CAPSULE SR 24 HR Take 1 capsule by mouth daily. 4 Active QUEtiapine XR (SEROQUEL XR) 50 MG 24 hr tablet Take 1 tablet (50 mg total) by mouth daily. Active methylPREDNISo QIANA moses, (MEDROL DOSEPAK) 4 MG tablet 6 TABLETS ON DAY ONE, 5 TABLETS DAY TWO, 4 TABLETS DAY THREE, 3 TABLETS DAY FOUR, 2 TABLETS DAY FIVE, AND 1 TABLET DAY SIX 1 each 5 Active HYDROcodone-ac etaminophen (NORCO) 5-325 MG tabletIndicati ons:Acute Pain < 3 Day Supply Take 1 tablet by mouth every 4 (four) hours. Indications: Acute Pain < 3 Day Supply 12 tablet 5 Active meloxicam (MOBIC) 7.5 MG tablet Take 1 tablet (7.5 mg total) by mouth daily. 30 tablet 5 Active HYDROcodone-ac etaminophen (NORCO) 5-325 MG tabletIndicati ons:Acute Pain < 7 Day Supply Take 1 tablet by mouth every 6 (six) hours as needed. Indications: Acute Pain < 7 Day Supply 15 tablet 5 Active QIANA Pickard, (MEDROL DOSEPAK) 4 MG tablet 6 TABLETS ON DAY ONE, 5 TABLETS DAY TWO, 4 TABLETS DAY THREE, 3 TABLETS DAY FOUR, 2 TABLETS DAY FIVE, AND 1 TABLET DAY SIX 1 each 5 Active lidocaine (LIDO CARMENZA) 4 % patch Place 1 patch onto the skin daily. Remove & Discard patch within 12 hours or as directed by MD 30 patch 5 Active meclizine (ANTIVERT) 25 MG tablet Take 1 tablet (25 mg total) by mouth 3 (three) times daily as needed. 30 tablet 5 025 Active baclofen (LIORESAL) 10 MG tablet Take 1 tablet (10 mg total) by mouth 3 (three) times daily for 7 days. 21 tablet 5 025 acetaminophen (TYLENOL) 500 MG tablet Take 2 tablets (1,000 mg total) by mouth every 6 (six) hours as needed for Pain. 30 tablet 5 025 meclizine (ANTIVERT) 25 MG tablet Take 1 tablet (25 mg total) by mouth 3 (three) times daily as needed. 30 tablet 5 025 Discontinued Encounters Date Type Department Care Team Description 10/03/2024 9:43 AM CDT - 10/03/2024 12:28 PM CDT Emergency [facility] [place] [address] Yuriy Cardona NP Pleuritic Chest Pain; Dizziness Discharge Disposition: Home or Self Care (Routine Discharge) 10/03/2024 Travel 09/22/2024 7:28 PM CDT - 09/22/2024 11:58 PM CDT Emergency [facility] [place] [address] Feliciano Ramirez MD Chest Pain Discharge Disposition: Home or Self Care (Routine Discharge) 09/22/2024 Travel 09/19/2024 8:37 PM CDT - 09/19/2024 11:13 PM CDT Emergency [facility] [place] [address] Henry Benton PA Back Pain Discharge Disposition: Home or Self Care (Routine Discharge) 09/19/2024 Travel 07/26/2024 8:14 PM CDT - 07/26/2024 10:15 PM CDT Emergency [facility] [place] [address] Morales Emmanuel PA Joint Pain Discharge Disposition: Home or Self Care (Routine Discharge) 07/26/2024 Travel 07/18/2024 10:26 AM CDT - 07/18/2024 11:49 AM CDT Emergency [facility] [place] [address] Renee Leslie PA Joint Pain Discharge Disposition: Home or Self Care (Routine Discharge) 07/18/2024 Travel from Last 3 Months Family History Medical History Relation Comments No Known Problems Father No Known Problems Mother Relation Status Comments Father Mother Social History Tobacco Use Types Packs/Day Years Used Date Smoking Tobacco: Never Smokeless Tobacco: Never Tobacco Cessation:Counseling Given: Not Answered Alcohol Use Standard Drinks/Week Comments Not Currently 0 (1 standard drink = 0.6 oz pur e alcohol) Comments No Sex and Gender Information Value Date Recorded Sex Assigned at Female 07/18/2024 10:19 AM CDT Legal Sex Female 10:20 AM CUT OFF MAN Gender Identity Not on file Sexual Orientation Not on file Last Filed Vital Signs Vital Sign Reading Time Taken Comments Blood Pressure 101/65 10/03/2024 11:29 AM CDT Pulse 74 10/03/2024 11:29 AM CDT Temperature 36.2 C (97.2 F) 10/03/2024 9:07 AM CDT Respiratory Rate 22 10/03/2024 11:29 AM CDT Oxygen Saturation 100% 10/03/2024 9:07 AM CDT Inhaled Oxygen Concentration - - Weight 104.3 kg (230 lb) 10/03/2024 9:07 AM CDT Height 170.2 cm (5' 7) 10/03/2024 9:07 AM CDT Body Mass Index 36.02 10/03/2024 9:07 AM CDT Plan of Treatment Health Maintenance Due Date Last Done Comments Cervical Cancer Screening Pap Smear (Age 21 to 29) Every 3 Years 1996 Cervical Cancer Screening 1996 Kidney Health Evaluation 1996 Lipid Panel 1996 Annual Physical 1999 Diabetes: Retinopathy Eye Exam 2014 Pneumococcal Vaccine: Pediatrics (0 to 5 Years) and At-Risk Patients (6 to 49 Years) (1 of 2 - PCV) 2015 COVID-19 Vaccine (3 - season) 2023 04/10/2021, 10/24/2020 Hemoglobin A1C 09/19/2024 06/19/2024, 11/06/2023 DTaP, Tdap and Td Vaccines (8 - Td or Tdap) 05/29/2034 05/29/2024, 11/19/2007, 05/14/2001, Additional history exists Hepatitis B Vaccines Completed 06/23/1997, 1996, 1996, Additional history exists HPV Vaccines Completed 09/16/2008, 11/19/2007 Meningococcal Vaccine Aged Out 08/07/2015, 016 No longer eligible based on patient's age to complete this topic Hepatitis C Completed 11/06/2023 Meningococcal B Vaccine Aged Out No l onger eligible based on patient's age to complete this topic RSV Immunizations Under 20 Months Aged Out No longer eligible based on patient's age to complete this topic Procedures Procedure Name Priority Date/Time Associated Diagnosis Comments XR CHEST PORTABLE STAT 10/03/2024 10: 26 AM CDT HC URINALYSIS AUTO W/O MICRO STAT 10/03/2024 9:56 AM CDT ECG 12-LEAD Routine 10/03/2024 9:51 AM CDT MAGNESIUM STAT 10/03/2024 9:47 AM CDT TSH W/REFLEX STAT 10/03/2024 9:47 AM CDT TROPONIN, QUANT STAT 10/03/2024 9:47 AM CDT COMPREHENSIVE METABOLIC PANEL STAT 10/03/2024 9:47 AM CDT CBC W/DIFF AUTOMATED STAT 10/03/2024 9:47 AM CDT TROPONIN, QUANT STAT 09/22/2024 9:25 PM CDT ECG 12-LEAD STAT 09/22/2024 9:22 PM CDT XR CHEST PORTABLE STAT 09/22/2024 8:0 6 PM CDT TROPONIN, QUANT STAT 09/22/2024 7:44 PM CDT COMPREHENSIVE METABOLIC PANEL STAT 09/22/2024 7:44 PM CDT CBC W/DIFF AUTOMATED STAT 09/22/2024 7:44 PM CDT ECG 12-LEAD STAT 09/22/2024 7:[address] LUMB SPINE WO CON STAT 09/19/2024 9:38 PM CDT POCT URINE (BACK OFFICE) STAT 09/19/2024 9:20 PM CDT HC URINALYSIS AUTO W/O MICRO STAT 09/19/2024 8:49 PM CDT URIC ACID BLOOD STAT 07/26/2024 8:25 PM CDT SED RATE, ERYTHROCYTE (ESR) STAT 07/26/2024 8:25 PM CDT C-REACTIVE PROTEIN STAT 07/26/2024 8: 25 PM CDT COMPREHENSIVE METABOLIC PANEL STAT 07/26/2024 8:25 PM CDT CBC W/DIFF AUTOMATED STAT 07/26/2024 8:25 PM CDT URIC ACID BLOOD STAT 07/18/2024 10:27 AM CDT C-REACTIVE PROTEIN, HIGH SENSI STAT 07/18/2024 10:27 AM CDT SED RATE, ERYTHROCYTE (ESR) STAT 07/18/2024 10:27 AM CDT from Last 3 Months Results * XR CHEST PORTABLE (10/03/2024 10:26 AM CDT) Only the most recent of2 resultswithin the time period is included. Anatomical Region Laterality Modality Chest Fluoroscopy 10/03/2024 10:3 5 AM CDT Impressions 10/03/2024 10:37 AM CDT IMPRESSION: No acute pulmonary infiltrate or consolidation. Ordered By: YURIY CARDONA Interpreted By: Michael Hugo, 10/03/2024 10:35 AM Narrative 10/03/2024 10:37 AM CDT [address] [address] IMAGING STUDIES: XR CHEST PORTABLE DATE: 10/03/2024 10:03 AM HISTORY: chest pain 29-year-old female. Pleuritic chest pain that worsens with deep inhalation. Focal chest soreness with palpation. Dizziness. Nausea. Patient presented with similar symptoms on 09/22/2024. COMPARISON: Chest portable 09/22/2024. DISCUSSION: Portable AP upright view of the chest. Heart size is within normal limits. No acute pulmonary vascular congestion. No acute pulmonary infiltrate, pulmonary consolidation, pleural effusion, or pneumothorax. No acute skeletal abnormality. Procedure Note Michael Hugo MD - 10/03/[address] [address] IMAGING STUDIES: XR CHEST PORTABLEDATE: 10/03/2024 10:03 AM HISTORY: chest pain 29-year-old female. Pleuritic chest pain thatworsens with deep inhalation. Focal chest soreness with palpation.Dizziness. Nausea. Patient presented with similar symptoms on 09/22/2024. COMPARISON: Chest portable 09/22/2024. DISCUSSION: Portable AP upright view of the chest. Heart size is within normal limits. No acute pulmonary vascularcongestion. No acute pulmonary infiltrate, pulmonary consolidation, pleural effusion,or pneumothorax. No acute skeletal abnormality. IMPRESSION: No acute pulmonary infiltrate or consolidation. Ordered By: YURIY CARDONA Interpreted By: Michael Hugo, 10/03/2024 10:35 AM Yuriy Cardona TARE WORK[employer] GENERAL IMAGING Final Result * (ABNORMAL) URINALYSIS (10/03/2024 9:56 AM CDT) Only the most recent of2 resultswithin the time period is included. SPECIMEN TYPE URINE CLEAN CATCH 10/03/2024 9:55 AM CDT [facility] COLOR (U) LIGHT ORANGE 10/03/2024 10:19 AM CDT [facility] TRANSPARENCY TURBID 10/03/2024 10:19 AM [facility] SPECIFIC GRAVITY (U) 1.027 1.001 - 1.030 10/03/2024 10:19 AM [facility] U PH 6.0 5.0 - 9.0 10/03/2024 10:19 AM [facility] LEUKOCYTES (U) 25(A) NEGATIVE 10/03/2024 10:19 AM [facility] NITRITES NEGATIVE NEGATIVE 10/03/2024 10:19 AM [facility] PROTEIN RANDOM (U) 50(H) <30 MG/DL 10/03/2024 10:19 AM [facility] GLUCOSE (U) NORMAL NORMAL MG/DL 10/03/2024 10:19 AM [facility] KETONES MG/DL (U) NEGATIVE NEGATIVE MG/DL 10/03/2024 10:19 AM [facility] UROBILINOGEN NORMAL NORMAL MG/DL 10/03/2024 10:19 AM [facility] BILIRUBIN (U) NEGATIVE NEGATIVE MG/DL 10/03/2024 10:19 AM [facility] BLOOD (U) 3+(A) NEGATIVE 10/03/2024 10:19 AM [facility] MUCUS RARE /LPF 10/03/2024 10:19 AM [facility] WBC/HPF 5 <6 /HPF 10/03/2024 10:19 AM [facility] RBC/HPF >100(H) <6 /HPF 10/03/2024 10:19 AM [facility] SQUAMOUS EPITHELIALS RARE /HPF 10/03/2024 10:19 AM [facility] URINE SPECIMEN OBTAINED BY CLEAN CATCH PROCEDURE / Unknown 10/03/2024 9:56 AM CDT us Yuriy Cardona TARE WORKER URINE ORDERABLES Final Result [facility] [address] [place] [address], [place] [phone] * ECG 12 lead (10/03/2024 9:51 AM CDT) Only the most recent of3 resultswithin the time period is included. 10/03/2024 9:51 AM CDT Narrative [facility] ([facility]) RAD - 10/04/2024 6:12 AM CDT [address] Test Date: 2024-10-03 Pat Name: SHORTY STEWART Department: 41 Room: Gender: Female Plate Stacker: [id number] : 1995 Requested By: YURIY CARDONA Order Number: [id number] Reading : Henry Hermosillo Measurements Intervals [place] Rate: 73 P: 11 FL: 158 QRS: 38 QRSD: 99 T: 34 QT: 409 QTc: 453 Interpretive Statements SINUS RHYTHM Compared to ECG 09/22/2024 21:22:01 No significant changes Procedure Note Henry Hermosillo MD - 10/04/[address] Test Date: 2024-10-03 Pat Name: SHORTY STEWART Department: 41 Room: Gender: Female Plate Stacker: [id number] : 1995 Requested By: YURIY CARDONA Order Number: [id number] Reading TIM Hermosillo Measurements Intervals [place] Rate: 73 P: 11 FL: 158 QRS: 38 QRSD: 99 T: 34 QT: 409 QTc: 453 Interpretive Statements SINUS RHYTHM Compared to ECG 09/22/2024 21:22:01 No significant changes Yuriy Cardona NP ECG ORDERABLES Final Result [facility] * TSH W/REFLEX (10/03/2024 9:47 AM CDT) Pathologist [facility] TSH 2.450 0.358 - 3.74 uIU/ML 10/03/2024 10:43 AM CDT [facility] Comment: HIGH DOSES OF BIOTIN MAY INTERFERE WITH THIS TEST RESULT. CORRELATION TO CLINICAL HISTORY AND PRESENTATION RECOMMENDED. FREE T4 NOT INDICATED 10/03/2024 9:47 AM CDT Yuriy Cardona NP LABORATORY Final Result Performing Organization Address City/[facility]/ZIP Co de Phone Number [facility] [address] [place] [address], [place] [phone] * (ABNORMAL) COMPREHENSIVE METABOLIC PANEL (10/03/2024 9:47 AM CDT) Only the most recent of3 resultswithin the time period is included. Pathologist [facility] GLUCOSE 111(H) 70 - 99 MG/DL 10/03/2024 10:37 AM CDT [facility] BUN 12 7 - 18 MG/DL 10/03/2024 10:37 AM CDT [facility] CREATININE S/P/B 0.82 0.55 - 1.02 MG/DL 10/03/2024 10:37 AM CDT [facility] SODIUM S/P/B 136 136 - 145 MMOL/L 10/03/2024 10:37 AM CDT [facility] POTASSIUM S/P/B 3.4(L) 3.5 - 5.1 MMOL/L 10/03/2024 10:37 AM CDT [facility] CHLORIDE S/P/B 105 97 - 115 MMOL/L 10/03/2024 10:37 AM CDT [facility] CO2 25.4 21 - 32 MMOL/L 10/03/2024 10:37 AM CDT [facility] CALCIUM S/P/B 9.2 8.5 - 10.1 MG/DL 10/03/2024 10:37 AM CDT [facility] BILIRUBIN TOTAL S/P/B 1.5(H) 0.2 - 1.2 MG/DL 10/03/2024 10:37 AM CDT [facility] Comment: THIS ASSAY IS NOT RECOMMENDED FOR PATIENTS UNDERGOING TREATMENT WITH ELTROMBOPAG DUE TO THE POTENTIAL FOR FALSELY ELEVATED RESULTS. TOTAL PROTEIN S/P/B 7.8 6.4 - 8.2 G/DL 10/03/2024 10:37 AM T [facility] ALBUMIN S/P/B 3.6 3.4 - 5.0 G/DL 10/03/2024 10:37 AM CDT [facility] AST 15 15 - 37 U/L 10/03/2024 10:37 AM T [facility] ALT 32 14 - 55 U/L 10/03/2024 10:37 AM T [facility] ALKALINE PHOSPHATASE S/P/B 92 50 - 136 U/L 10/03/2024 10:37 AM T [facility] ANION GAP 5.6 2 - 10 MMOL/L 10/03/2024 10:37 AM CDT [facility] BUN CREATININE RATIO 14.7 10/03/2024 10:37 AM T [facility] A/G RATIO 0.9(L) 1.0 - 2.0 RATIO 10/03/2024 10:37 AM CDT [facility] GFR ESTIMATE >90 >90 ML/MIN/1.7 3 M2 10/03/2024 10:37 AM CDT [facility] Comment: NOTE: eGFR is not calculated for patients <18 years of age or gender unknown. This is an estimated GFR calculation using the new CKD EPI creatinine equation without race and so does not require a correction factor for race. This estimated GFR should not be used for calculating drug doses. 10/03/2024 9:47 AM CDT Yuriy Cardona NP LABORATORY Final Result [facility] [address] [place] [address], [place] [phone] * (ABNORMAL) CBC W/DIFF AUTOMATED (10/03/2024 9:47 AM CDT) Only the most recent of3 resultswithin the time period is included. WBC 7.73 4.5 - 11.0 x10'3/uL 10/03/2024 10:04 AM CDT [facility] RBC 4.36 4.20 - 5.40 x10'6/uL 10/03/2024 10:04 AM CDT [facility] HGB 12.5 12.0 - 16.0 G/DL 10/03/2024 10:04 AM CDT [facility] HCT 37.3(L) 38.0 - 48.0 % 10/03/2024 10:04 AM CDT [facility] MCV 85.6 81.0 - 99.0 FL 10/03/2024 10:04 AM CDT [facility] MCH 28.7 27.0 - 31.0 PG 10/03/2024 10:04 AM CDT [facility] MCHC 33.5 32.0 - 36.0 G/DL 10/03/2024 10:04 AM CDT [facility] RDW 12.8 11.5 - 14.5 % 10/03/2024 10:04 AM CDT [facility] PLT 276 130 - 400 x10'3/uL 10/03/2024 10:04 AM CDT [facility] MPV 11.1 9.3 - 12.2 FL 10/03/2024 10:04 AM CDT [facility] DIFFERENTIAL TYPE AUTOMATED DIFFERENTIAL 10/03/2024 10:04 AM CDT [facility] NEUTROPHILS % 64.1 % 10/03/2024 10:04 AM CDT [facility] LYMPHOCYTES % 28.1 % 10/03/2024 10:04 AM CDT [facility] MONOCYTES % 6.6 % 10/03/2024 10:04 AM CDT [facility] EOSINOPHILS 0.5 % 10/03/2024 10:04 AM CDT [facility] BASOPHILS 0.4 % 10/03/2024 10:04 AM T [facility] IMMATURE GRANS % 0.3 % 10/04/19 10:04 AM CDT [facility] ABS. NEUTROPHILS 4.96 1.80 - 7.70 x10'3/uL 10/03/2024 10:04 AM CDT [facility] ABS. LYMPHOCYTES 2.17 1.00 - 4.80 x10'3/uL 10/03/2024 10:04 AM CDT [facility] ABS. MONOCYTES 0.51 0.24 - 0.86 x10'3/uL 10/03/2024 10:04 AM CDT [facility] ABS. EOSINOPHILS 0.04 0.04 - 0.36 x10'3/uL 10/03/2024 10:04 AM CDT [facility] ABS. BASOPHILS 0.03 0.01 - 0.08 x10'3/uL 10/03/2024 10:04 AM CDT [facility] ABS. IMMATURE GRANULOCYTES 0.02 0.00 - 0.49 x10'3/uL 10/03/2024 10:04 AM CDT [facility] 10/03/2024 9:47 AM CDT Yuriy Magañaace TARE WORK[employer] LABORATORY Final Result Performing Organization Address City/[facility]/ZIP Co de Phone Number [facility] [address] [place] [address], [place] [phone] * TROPONIN, QUANT (10/03/2024 9:47 AM CDT) Only the most recent of3 resultswithin the time period is included. Pathologist [facility] TROPONIN I HIGH SENSITIVITY 4 <54 ng/L 10/03/2024 10:37 AM CDT [facility] Comment: HIGH DOSES OF BIOTIN, TROPONIN-SPECIFIC AUTOANTIBODIES, AND ANTIBODY THERAPY CONTAINING HAMA MAY INTERFERE WITH THIS TEST RESULT. CORRELATION TO CLINICAL HISTORY AND PRESENTATION RECOMMENDED. 10/03/2024 9:47 AM CDT Yuriy Rahman Cardona TARE WORKER LABORATORY Final Result [facility] [address] [place] [address], [place] [phone] * MAGNESIUM (10/03/2024 9:47 AM CDT) Pathologist [facility] MAGNESIUM 2.1 1.8 - 2.4 MG/DL 10/03/2024 10:37 AM CDT [facility] 10/03/2024 9:47 AM CDT Yuriy Rahman Cardona TARE WORKER LABORATORY Final Result [facility] [address] [facility] [place] [address], [place] [phone] * CT LUMB SPINE WO CON (09/19/2024 9:38 PM CDT) Anatomical Region Laterality Modality Spine Computed Tomogra phy 09/19/2024 9:58 PM CDT Impressions 09/19/2024 10:45 PM CDT IMPRESSION: 1. No acute fracture or traumatic malalignment. 2. 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 3. Multilevel degenerative changes in the lumbar spine, most pronounced at L4-5 and L5-S1 as detailed in the body of the report, with moderate to severe central canal stenosis at L4-5. 4. Partially calcified posterior disc osteophyte complex or partially calcified disc herniation at L5-S1 slightly eccentric to the left with left greater than right facet arthropathy with moderate bilateral foraminal narrowing and left subarticular recess narrowing at L5-S1. Please correlate clinically for left S1 radiculopathy. 5. Partially calcified posterior disc osteophyte complex or calcification of the posterior longitudinal ligament in the midline at T12-L1, L1-2 and L2-3 levels, as well as congenital short pedicles of L2. 6. The last pair of ribs is rudimentary, and indeterminate if related to rudimentary ribs at L1 or hypoplastic ribs at T12; it will be presumed that the last pair of ribs is at L1. 7. 7. A 3.6 x 3.2 cm cystic lesion in the left adnexa with CT density less than 15 Hounsfield units, almost certainly a benign physiologic cyst in the left ovary. Recommend follow-up ultrasound in 6-12 weeks for further assessment. Referred By: Interpreted By: Cecilia Kimble MD, 09/19/2024 9:58 PM Narrative 09/19/2024 10:45 PM CDT [facility] [address] [place], [place] [address] EXAMINATION: CT Lumbar Spine Reconstruction Exam INDICATION: COMPARISON: None TECHNIQUE: Axial computed tomographic images were obtained through the abdomen and pelvis following intravenous contrast. 2D axial, sagittal, and coronal reconstruction images of the lumbar spine were reviewed. FINDINGS: The last pair of ribs is rudimentary, and indeterminate if related to rudimentary ribs at L1 or hypoplastic ribs at T12; for the purposes of this exam, it will be presumed that the last pair of ribs is at L1. There is a transitional lumbosacral junction, which for the purposes of this exam it will be presumed that it is related to partial lumbarization of S1 with a very hypoplastic S1-S2 disc. There is preservation of normal lumbar lordosis with slight rightward curvature of the lumbar spine with apex at L3-4. No acute fracture or dislocation is seen. Normal vertebral heights are maintained. Minimal degenerative retrolisthesis of L2 on L3, with normal alignment in the remaining lumbar spine. Partially calcified posterior disc osteophyte complex cyst and/or calcification of the posterior longitudinal ligament is intermittently noted in the midline at T12-L1, L1-2 and L2-3 levels in the ventral epidural space of the spinal canal. 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 No significant foraminal stenosis. There is concentric annular bulge slightly eccentric laterally to the left at L3-4 with minimal left greater than right facet arthropathy and ligament hypertrophy with mild central canal and a mild left foraminal narrowing at L3-4. There is diffuse posterior annular bulge slightly eccentric posterolaterally to the left as well as a partially calcified posterior central disc herniation at L4-5 with bilateral facet arthropathy and ligament hypertrophy with moderate to severe central canal stenosis and [id number] left foraminal narrowing with mild right foraminal narrowing at L4-5. There is also right greater than left subarticular recess narrowing at L4-5. There is a prominent posterior disc osteophyte complex or partially calcified disc herniation posteriorly across the midline at L5-S1 slightly eccentric to the left with left greater than right facet arthropathy with mild central canal and moderate bilateral foraminal narrowing and left subarticular recess narrowing at L5-S1. Please correlate clinically for left S1 radiculopathy. The sacroiliac joints are normal in appearance. The paraspinal soft tissues are unremarkable. There is a 3.6 x 3.2 cm cystic lesion in the left adnexa with CT density less than 15 Hounsfield units, likely a physiologic cyst in the left ovary. Procedure Note Cecilia Kimble MD - 09/19/[address] [address] EXAMINATION: CT Lumbar Spine Reconstruction Exam INDICATION: COMPARISON: None TECHNIQUE: Axial computed tomographic images were obtained through theabdomen and pelvis following intravenous contrast. 2D axial, sagittal, andcoronal reconstruction images of the lumbar spine were reviewed. FINDINGS: The last pair of ribs is rudimentary, and indeterminate ifrelated to rudimentary ribs at L1 or hypoplastic ribs at T12; for thepurposes of this exam, it will be presumed that the last pair of ribs isat L1. There is a transitional lumbosacral junction, which for thepurposes of this exam it will be presumed that it is related to partiallumbarization of S1 with a very hypoplastic S1-S2 disc. There ispreservation of normal lumbar lordosis with slight rightward curvature ofthe lumbar spine with apex at L3-4. No acute fracture or dislocation isseen. Normal vertebral heights are maintained. Minimal degenerativeretrolisthesis of L2 on L3, with normal alignment in the remaining lumbarspine. Partially calcified posterior disc osteophyte complex cyst and/orcalcification of the posterior longitudinal ligament is intermittentlynoted in the midline at T12-L1, L1-2 and L2-3 levels in the ventralepidural space of the spinal canal. There is mild central canal narrowingat L2-3 with 2 slight retrolisthesis of L2 on L3, concentric annularbulge, posterior central disc osteophyte complex centered calcification ofthe posterior longitudinal ligament and congenital short pedicles at L2with mild uncovertebral hypertrophy also noted. No significant foraminalstenosis. There is concentric annular bulge slightly eccentric laterallyto the left at L3-4 with minimal left greater than right facet arthropathyand ligament hypertrophy with mild central canal and a mild left foraminalnarrowing at L3-4. There is diffuse posterior annular bulge slightlyeccentric posterolaterally to the left as well as a partially calcifiedposterior central disc herniation at L4-5 with bilateral facet arthropathyand ligament hypertrophy with moderate to severe central canal stenosisand [id number] left foraminal narrowing with mild right foraminalnarrowing at L4-5. There is also right greater than left subarticularrecess narrowing at L4-5. There is a prominent posterior disc osteophytecomplex or partially calcified disc herniation posteriorly across themidline at L5-S1 slightly eccentric to the left with left greater thanright facet arthropathy with mild central canal and moderate bilateralforaminal narrowing and left subarticular recess narrowing at L5- S1.Please correlate clinically for left S1 radiculopathy. The sacroiliacjoints are normal in appearance. The paraspinal soft tissues areunremarkable. There is a 3.6 x 3.2 cm cystic lesion in the left adnexawith CT density less than 15 Hounsfield units, likely a physiologic cystin the left ovary. IMPRESSION: 1. No acute fracture or traumatic malalignment. 2. Transitional lumbosacral junction with presumed partial lumbarizationof S1 and a hypoplastic S1-S2 disc. 3. Multilevel degenerative changes in the lumbar spine, most pronouncedat L4-5 and L5-S1 as detailed in the body of the report, with moderate tosevere central canal stenosis at L4-5. 4. Partially calcified posterior disc osteophyte complex or partiallycalcified disc herniation at L5-S1 slightly eccentric to the left withleft greater than right facet arthropathy with moderate bilateralforaminal narrowing and left subarticular recess narrowing at L5-S1.Please correlate clinically for left S1 radiculopathy. 5. Partially calcified posterior disc osteophyte complex or calcificationof the posterior longitudinal ligament in the midline at T12-L1, L1-2 andL2-3 levels, as well as congenital short pedicles of L2. 6. The last pair of ribs is rudimentary, and indeterminate if related torudimentary ribs at L1 or hypoplastic ribs at T12; it will be presumedthat the last pair of ribs is at L1. 7. 7. A 3.6 x 3.2 cm cystic lesion in the left adnexa with CT densityless than 15 Hounsfield units, almost certainly a benign physiologic cystin the left ovary. Recommend follow-up ultrasound in 6-12 weeks forfurther assessment. Referred By: Interpreted By: Cecilia Kimble MD, 09/19/2024 9:[address] [address] Final Resul t * POCT urine (09/19/2024 9:20 PM CDT) Pathologist [facility] URINE HCG TEST NEGATIVE Internal Control: VALID 09/19/2024 9:20 PM CDT [facility] POINT OF CARE TEST ORDERABL ES Final Result * (ABNORMAL) SED RATE, ERYTHROCYTE (ESR) (07/26/2024 8:25 PM CDT) Only the most recent of2 resultswithin the time period is included. [facility] ESR 42(H) <20 MM/HR 07/26/2024 9:34 PM CDT [facility] Comment:Testing performed on [employer] iSED. 07/26/2024 8:25 PM CDT [facility] Final Resu lt [facility] [address] [place] [address], [place] [phone] * (ABNORMAL) C-REACTIVE PROTEIN (07/26/2024 8:25 PM CDT) [facility] C-REACTIVE PROTEIN 1.35(H) <0.29 mg/dL 07/26/2024 9:03 PM CDT [facility] 07/26/2024 8:25 PM CDT [facility] Final Resu lt Performing Organization Address City/[facility]/ZIP Co de Phone Number [facility] [address] [place] [address], [place] [phone] * URIC ACID BLOOD (07/26/2024 8:25 PM CDT) Only the most recent of2 resultswithin the time period is included. URIC ACID 3.4 2.6 - 6.0 MG/DL 07/26/2024 9:03 PM CDT [facility] 07/26/2024 8:25 PM CDT [facility] Final Resu lt Performing Organization Address City/[facility]/ZIP Co de Phone Number [facility] [address] [place] [address], [place] [phone] * (ABNORMAL) C-REACTIVE PROTEIN, HIGH SENSI (07/18/2024 10:27 AM CDT) HS-CRP 1.11(H) <0.3 mg/dL 07/18/2024 11:23 AM CDT [facility] 07/18/2024 10:2 7 AM CDT [facility] Final Resul t [facility] [address] [place] [address], [place] [phone] from Last 3 Months Insurance [employer] MEDICAID [place] MED[place] Care Teams Envelope Stuffer Relationship Specialty Start Date End Date Dima Hamilton DO [facility] [address] [place] [address] PCP - General FAMILY PRACTICE 01/22/24
--- OUTSIDE RECORDS SUMMARY | 2024-10-11 14:01 | XMS_ITS | Encounter Summary ---
Author Organization [facility] Address [address] [place] [address] Phone Care Team Providers Care Ranch [place] Name Role Phone Dima Hamilton DO Primary Care Provider Chanda Coburn CHILLER OPERATOR Unavailable [phone] Reason for Visit * Reason Onset Date Comments Call in flare 10/01/2024 Encounter Details Date Type Department Care Team (Late st Contact Info) Description 10/01/2024 Telephone [facility] Rheumatology [address] 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 If she wants to do 7.5 mg of daily PDN she can but if she is flaring this much, I doubt the HCQ is going to work for her. * Telephone Encounter - Treva Dee RMA - 10/01/2024 8:46 AM CDT Patient calling in today reporting that during the night and this morning her right hand 4 out 5 fingers are numb and right wrist swollen with shooting pain up to her shoulder. She stated in the pastshe had received a medrol jb and it had helped. documented in this encounter Plan of Treatment Not on file documented as of this encounter Visit Diagnoses Not on filedocumented in this encounter Care Teams Ranch [place] Relationship Specialty Start Date End Date Dima Hamilton DO [address] [place] [id number] PCP - General Family Medicine 11/06/23 Chanda Coburn NP [address] [place] [address] [place] [address] Nurse Practitioner Neurology 10/03/24 documented as of this encounter
[2024-10-11 14:06] VITALS: BP 125/88; PULSE 110; RESP 20; TEMP 36.8; O2SAT 99
[2024-10-11 14:49] LABS: Add Urine Microscopic? YES; Appearance Urine Clear (Clear); Glucose Urine UA Negative (Negative); Leukocyte Esterase Ur Trace LEU/UL (Negative); Nitrate Urine Negative (Negative); Non Pathogenic Casts 0-2; Specific Grav Ur 1.017 (1.001-1.035)
--- NOTE | 2024-10-11 17:36 | ED.FEMALEGU ---
HPI - Female Genitourinary General Chief complaint: Urogenital-Female Stated complaint: yeast infection? Time Seen by Provider: 10/11/24 14:03 Source: patient Mode of arrival: ambulatory Limitations: no limitations History of Present Illness HPI Narrative: Patient is a 29-year-old female who presents the ED with concern for possible yeast infection. Patient reports she had a sharp stabbing pain in her vagina that radiated up into her abdomen last night. She states this pain lasted for several minutes before resolving on its own. She does note history of previous left ovarian cyst, PCOS. She then reports today, she has been having discomfort, irritation, swelling, itching of her vaginal region. She has concern for yeast infection. She has had some yellow vaginal discharge. Denies abnormal vaginal bleeding. Denies dysuria or hematuria. Denies significant abdominal pain currently. Denies nausea, vomiting, fevers. Denies concern for STDs. Related Data Home Medications ?Medication ?Instructions ?Recorded ?Confirmed ?Last Taken ?Type lisinopril 5 mg PO DAILY 09/04/24 09/18/24 Unknown History loratadine 10 mg tablet (Allergy 10 mg PO DAILY 09/04/24 09/18/24 Unknown History Relief (loratadine)) rizatriptan 10 mg disintegrating mg 09/04/24 09/18/24 Unknown History tablet rosuvastatin 5 mg tablet mg 09/04/24 09/18/24 Unknown History semaglutide 0.25 mg or 0.5 mg (2 mg subcut 09/04/24 09/18/24 Unknown History mg/3 mL) subcutaneous pen injector (Ozempic) trazodone 50 mg tablet mg 09/04/24 09/18/24 Unknown History hydroxychloroquine 200 mg tablet 200 mg PO BID 09/18/24 09/18/24 Unknown History (Plaquenil) baclofen 10 mg tablet 10 mg PO DAILY 10/02/24 10/02/24 Unknown History buspirone 15 mg tablet 15 mg PO BID 10/02/24 10/02/24 Unknown History duloxetine 30 mg capsule,delayed 30 mg PO BID 10/02/24 10/02/24 Unknown History release prednisone 5 mg tablet 5 mg PO DAILY 10/02/24 10/02/24 Unknown History Allergies Allergy/AdvReac Type Severity Reaction Status Date / Time adhesive Allergy Mild Rash Verified 10/11/24 14:13 amoxicillin (From Augmentin) Allergy Mild Rash Verified 10/11/24 14:13 atorvastatin Allergy Mild Rash Verified 10/11/24 14:13 clavulanic acid (From Allergy Mild Rash Verified 10/11/24 14:13 Augmentin) latex Allergy Mild Rash Verified 10/11/24 14:13 clonidine AdvReac Mild Hypotension Verified 10/11/24 14:13 prazosin AdvReac Mild Hypotension Verified 10/11/24 14:13 Review of Systems Review of Systems: All systems reviewed & are unremarkable except as noted in HPI. All systems reviewed & are unremarkable except as noted in HPI and below PMFSH Past Medical History Medical History Rheumatoid arthritis Scoliosis Spinal stenosis Spondylosis Degenerative disc disease PTSD (post-traumatic stress disorder) Depression Borderline personality disorder ADHD Bipolar 1 disorder History of PCOS Ulcer Migraine Diabetes Asthma Anxiety Surgical History Surgical History Hx of adenoidectomy Hx of tonsillectomy History of esophagogastroduodenoscopy (EGD) History of ear surgery Family History Family History Mother Endometrial cancer Depression Diabetes mellitus Heart disease Cerebrovascular accident Hypertension Father Lung cancer Grandparent Asthma Depression Diabetes mellitus Heart disease Hypertension Cerebrovascular accident Breast cancer Carcinoma of colon Social History Social History Smoking status: Never smoker Alcohol intake: current Substance use: never Exam Narrative: GENERAL: Well appearing, obese with BMI of 35.9, non-toxic, in no acute distress. HEAD: Normocephalic, atraumatic. RESPIRATORY: Airway patent, respirations nonlabored. Clear to auscultation bilaterally, no rales, rhonchi, wheezing. CARDIOVASCULAR: Regular rate and rhythm without murmurs, rubs, or gallops. ABDOMINAL: Soft, mild discomfort throughout lower abdomen, nondistended. Normoactive BS. PELVIC: Normal external genitalia. Mild swelling and erythema noted to vulvar regions. White curd like discharge present in vaginal folds. No bleeding. No genital lesions. MUSCULOSKELETAL: Moves all extremities. No gross deformities. SKIN: Warm, dry, normal color. NEURO: A&O X3. Speech clear PSYCHIATRIC: Appropriate mood and affect. Normal interaction. Course Vital Signs Vital signs: Vital Signs Temperature 98.2 F 10/11/24 14:06 Pulse Rate 110 H 10/11/24 14:06 Respiratory Rate 20 10/11/24 14:06 Blood Pressure 125/88 10/11/24 14:06 Pulse Oximetry 99 10/11/24 14:06 Oxygen Delivery Room Air 10/11/24 14:06 Temperature 98.2 F 10/11/24 14:06 Pulse Rate 110 H 10/11/24 14:06 Respiratory Rate 20 10/11/24 14:06 Blood Pressure 125/88 10/11/24 14:06 Pulse Oximetry 99 10/11/24 14:06 Oxygen Delivery Room Air 10/11/24 14:06 MDM - Female Genitourinary MDM Narrative Medical decision making narrative: Patient presented to ED with concern for yeast infection. Reports vaginal swelling, irritation, itching, discharge. Also reported having some discomfort throughout her lower abdomen and vagina last night. History of ovarian cyst, PCOS. Vital signs are stable upon arrival. Patient is in no acute distress. UA here is clear. No signs of infection. Pelvic exam consistent with yeast infection. Given dose of diflucan in the ED. Pelvic ultrasound was obtained and unremarkable. Does show nabothian cyst, multiple follicles. Consistent w/ PCOS. Normal vascular blood flow to bilateral ovaries. No evidence of torsion. Patient safe for discharge at this time. Recommended follow-up with PCP, OBGYN for further evaluation. Given return precautions. Discharged in stable condition. Medical Records Attestation: I reviewed the patient's medical records. Lab Data Attestation: I reviewed the patient's lab results. Labs: Lab Results 10/11/24 Range/Units 14:28 Urine Color Yellow (Yellow) Urine Appearance Clear (Clear) Urine pH 6.0 (5.0-9.0) Ur Specific Burton 1.017 (1.001-1.035) Urine Protein 1+ H (Negative) mg/dL Urine Glucose (UA) Negative (Negative) mg/dL Urine Ketones Negative (Negative) mg/dL Ur Blood (Man) Negative (Negative) Urine Nitrate Negative (Negative) Urine Bilirubin Negative (Negative) Urine Urobilinogen 1.0 (<2.0) mg/dL Leukocyte Esterase Rfl Trace H (Negative) SNEHAL/UL Urine RBC 0-2 (0-2) /hpf Urine WBC 0-5 (0-3) /hpf Ur Squamous Epith Cells None seen (Few) /hpf Urine Bacteria None seen /hpf Urine Casts 0-2 Imaging Data Attestation: I personally reviewed and interpreted this imaging study as follows: Radiologist's impression: ITS Impressions Pelvic/Transvag US 10/11/24 18:01 IMPRESSION: Nabothian cysts in the cervix. Bilateral peripheral ovarian follicles. Polycystic ovaries should be considered. Otherwise, normal pelvic ultrasound. Discharge Plan Discharge Clinical Impression: Vulvovaginal candidiasis Patient Disposition: Home Condition: Stable Instructions: Antibiotic Form, Yeast Infection (ED) Additional Instructions: You are being treated for a yeast infection. You were given a dose of Diflucan in the ED. You may repeat this dose in 72 hours (3 days) if needed for continued symptoms. Follow-up with your primary care doctor and OBGYN for further evaluation. Return to the ED for new or worsening concerns. Patient Language: Scottish Prescriptions: New fluconazole 150 mg tablet 150 mg PO ONCE Qty: 1 0RF Rx Instructions: as a single dose No Action rizatriptan 10 mg tablet,disintegrating rosuvastatin 5 mg tablet Ozempic 0.25 mg or 0.5 mg (2 mg/3 mL) pen injector SUBCUT lisinopril 5 mg PO DAILY trazodone 50 mg tablet loratadine [Allergy Relief (loratadine)] 10 mg tablet 10 mg PO DAILY hydroxychloroquine [Plaquenil] 200 mg tablet 200 mg PO BID buspirone 15 mg tablet 15 mg PO BID baclofen 10 mg tablet 10 mg PO DAILY duloxetine 30 mg capsule,delayed release(DR/EC) 30 mg PO BID prednisone 5 mg tablet 5 mg PO DAILY norethindrone-e.estradiol-iron [Junel FE 04/29 (28)] 1 mg-20 mcg (21)/75 mg (7) tablet 1 tablet PO DAILY Qty: 84 1RF Follow-up/Referrals: Alfonso,Dima Hoang DO [Primary Care Provider] - Time of Disposition: 18:11
[2024-10-11] MEDS: FLUCONAZOLE 150 MG TABLET PO (18:14)
[2024-10-11 18:20] VITALS: BP 102/72; PULSE 90; RESP 18; O2SAT 98
== END 2024-10-11 18:22 | disposition home or self-care (01) ==
PROVIDERS: Emergency Provider Physician Assistant; PCP Family Medicine
DX: B37.31 Acute candidiasis of vulva and vagina (principal); F31.9 Bipolar disorder, unspecified; E11.9 Type 2 diabetes mellitus without complications; J45.909 Unspecified asthma, uncomplicated; M06.9 Rheumatoid arthritis, unspecified
CPT/HCPCS: 76830; 76856; 81001; 99284; A9270

== ENCOUNTER 2024-12-27 20:19 | Emergency (ER) | payer MEDICARE, MEDICAID, SELFPAY ==
[2024-12-27 20:25] VITALS: BP 115/70; PULSE 95; RESP 18; TEMP 36.6; O2SAT 98
[2024-12-27 23:02] LABS: BEDSIDEPREGUCG Negative (Negative)
[2024-12-27 23:39] LABS: Add Urine Microscopic? YES; Appearance Urine Clear (Clear); Glucose Urine UA Negative (Negative); Leukocyte Esterase Ur Trace LEU/UL (Negative); Nitrate Urine Negative (Negative); Non Pathogenic Casts 0-2; Specific Grav Ur 1.023 (1.001-1.035)
[2024-12-28 00:16] VITALS: BP 140/75; PULSE 75; RESP 18; O2SAT 100
--- NOTE | 2024-12-28 03:56 | ED.RECABL ---
HPI - Recheck/Abnormal Lab/Rx General Chief Complaint: Recheck/Abnormal Lab/Rx Stated Complaint: i think i might be Time Seen by Provider: 12/27/24 23:22 History of Present Illness HPI narrative: Patient had sexual intercourse with a man for the 1st time a week ago, she believes that he did use a condom, however she has been having some sensation of vaginal discomfort and nausea and feeling tired, she would like to be tested for . Related Data Home Medications ?Medication ?Instructions ?Recorded ?Confirmed ?Last Taken ?Type lisinopril 5 mg PO DAILY 09/04/24 09/18/24 Unknown History loratadine 10 mg tablet (Allergy 10 mg PO DAILY 09/04/24 09/18/24 Unknown History Relief (loratadine)) rizatriptan 10 mg disintegrating mg 09/04/24 09/18/24 Unknown History tablet rosuvastatin 5 mg tablet mg 09/04/24 09/18/24 Unknown History semaglutide 0.25 mg or 0.5 mg (2 mg subcut 09/04/24 09/18/24 Unknown History mg/3 mL) subcutaneous pen injector (Ozempic) trazodone 50 mg tablet mg 09/04/24 09/18/24 Unknown History hydroxychloroquine 200 mg tablet 200 mg PO BID 09/18/24 09/18/24 Unknown History (Plaquenil) baclofen 10 mg tablet 10 mg PO DAILY 10/02/24 10/02/24 Unknown History buspirone 15 mg tablet 15 mg PO BID 10/02/24 10/02/24 Unknown History duloxetine 30 mg capsule,delayed 30 mg PO BID 10/02/24 10/02/24 Unknown History release prednisone 5 mg tablet 5 mg PO DAILY 10/02/24 10/02/24 Unknown History Allergies Allergy/AdvReac Type Severity Reaction Status Date / Time adhesive Allergy Mild Rash Verified 10/11/24 14:13 amoxicillin (From Augmentin) Allergy Mild Rash Verified 10/11/24 14:13 atorvastatin Allergy Mild Rash Verified 10/11/24 14:13 clavulanic acid (From Allergy Mild Rash Verified 10/11/24 14:13 Augmentin) latex Allergy Mild Rash Verified 10/11/24 14:13 clonidine AdvReac Mild Hypotension Verified 10/11/24 14:13 prazosin AdvReac Mild Hypotension Verified 10/11/24 14:13 Review of Systems Review of Systems: All systems reviewed & are unremarkable except as noted in HPI and below PMFSH Past Medical History Medical History Rheumatoid arthritis Scoliosis Spinal stenosis Spondylosis Degenerative disc disease PTSD (post-traumatic stress disorder) Depression Borderline personality disorder ADHD Bipolar 1 disorder History of PCOS Ulcer Migraine Diabetes Asthma Anxiety Surgical History Surgical History Hx of adenoidectomy Hx of tonsillectomy History of esophagogastroduodenoscopy (EGD) History of ear surgery Family History Family History Mother Endometrial cancer Depression Diabetes mellitus Heart disease Cerebrovascular accident Hypertension Father Lung cancer Grandparent Asthma Depression Diabetes mellitus Heart disease Hypertension Cerebrovascular accident Breast cancer Carcinoma of colon Social History Social History Smoking status: Never smoker Alcohol intake: current Substance use: never Exam Narrative: EXAMINATION OF ORGAN SYSTEMS/BODY AREAS: Constitutional: Vital signs per nursing GENERAL:[No acute distress, non-toxic appearing.] HEAD: Normal with no signs of head trauma. EYES: EOMI, conjunctiva normal ENT: Hearing grossly intact LUNGS: Nonlabored breathing. HEART: [Regular rate and rhythm] ABD: [Soft], [nontender to palpation] EXT: Normal range of motion SKIN: [No rashes or lesions.] NEURO: [Alert and oriented x 3. No gross focal sensory or strength deficits.] PSYCH: Normal affect Course Vital Signs Vital signs: Vital Signs Temperature 98 F 12/27/24 20:25 Pulse Rate 95 12/27/24 20:25 Respiratory Rate 18 12/27/24 20:25 Blood Pressure 115/70 12/27/24 20:25 Pulse Oximetry 98 12/27/24 20:25 Temperature 98 F 12/27/24 20:25 Pulse Rate 75 12/28/24 00:16 Respiratory Rate 18 12/28/24 00:16 Blood Pressure 140/75 12/28/24 00:16 Pulse Oximetry 100 12/28/24 00:16 MDM - Recheck/Abnormal Lab/Rx MDM Narrative Medical decision making narrative: Patient had sexual intercourse with a man for the 1st time a week ago, she believes that he did use a condom, however she has been having some sensation of vaginal discomfort and nausea and feeling tired, she would like to be tested for . Does not believe she has an STD and does not want to be tested for this tonight. test here is negative, I did discuss with the patient that if she continues to have symptoms she may want to have a repeat test in a week since urine test is not in fell a bowl especially for early . Patient expresses understanding and agreement and will follow up with her PCP Lab Data Labs: Lab Results 12/27/24 12/27/24 Range/Units 22:59 23:02 Urine Color Yellow (Yellow) Urine Appearance Clear (Clear) Urine pH 5.5 (5.0-9.0) Ur Specific Ola 1.023 (1.001-1.035) Urine Protein 1+ H (Negative) mg/dL Urine Glucose (UA) Negative (Negative) mg/dL Urine Ketones Negative (Negative) mg/dL Ur Blood (Man) Negative (Negative) Urine Nitrate Negative (Negative) Urine Bilirubin Negative (Negative) Urine Urobilinogen 0.2 (<2.0) mg/dL Leukocyte Esterase Rfl Trace H (Negative) SNEHAL/UL Urine RBC 0-2 (0-2) /hpf Urine WBC 0-5 (0-3) /hpf Ur Squamous Epith Cells Moderate (Few) /hpf Urine Bacteria 1+ H /hpf Urine Casts 0-2 POC Urine HCG, Qual Negative (Negative) Discharge Plan Discharge Clinical Impression: Encounter for test with result negative Patient Disposition: Home Condition: Stable Additional Instructions: Your urine test today was negative. There may still be a chance that you are just extremely early. If you still continue to have symptoms or miss your period, consider taking another test at home. You can always return to the emergency room if you have any abdominal pain, nausea vomiting, vaginal bleeding or anything else concerning. You can follow-up with your primary care doctor. Patient Language: Polish Prescriptions: New ondansetron 4 mg tablet,disintegrating 4 mg PO Q8H PRN (Reason: nausea and vomiting) Qty: 10 0RF No Action rizatriptan 10 mg tablet,disintegrating rosuvastatin 5 mg tablet Ozempic 0.25 mg or 0.5 mg (2 mg/3 mL) pen injector SUBCUT lisinopril 5 mg PO DAILY trazodone 50 mg tablet loratadine [Allergy Relief (loratadine)] 10 mg tablet 10 mg PO DAILY hydroxychloroquine [Plaquenil] 200 mg tablet 200 mg PO BID buspirone 15 mg tablet 15 mg PO BID baclofen 10 mg tablet 10 mg PO DAILY duloxetine 30 mg capsule,delayed release(DR/EC) 30 mg PO BID prednisone 5 mg tablet 5 mg PO DAILY norethindrone-e.estradiol-iron [04/29 (28)] 1 mg-20 mcg (21)/75 mg (7) tablet 1 tablet PO DAILY Qty: 84 1RF fluconazole 150 mg tablet 150 mg PO ONCE Qty: 1 0RF Rx Instructions: as a single dose Follow-up/Referrals: Alfonso,Dima Hoang DO [Primary Care Provider, Unknown]
== END 2024-12-28 00:17 | disposition home or self-care (01) ==
PROVIDERS: Emergency Provider Emergency Medicine; PCP Family Medicine
DX: Z32.02 Encounter for pregnancy test, result negative (principal); E11.9 Type 2 diabetes mellitus without complications; E28.2 Polycystic ovarian syndrome; M06.9 Rheumatoid arthritis, unspecified; F60.3 Borderline personality disorder; F43.10 Post-traumatic stress disorder, unspecified; F90.9 Attention-deficit hyperactivity disorder, unspecified type; F31.9 Bipolar disorder, unspecified; F41.9 Anxiety disorder, unspecified; Z79.899 Other long term (current) drug therapy; Z79.3 Long term (current) use of hormonal contraceptives; Z79.85 Long-term (current) use of injectable non-insulin antidiabetic drugs
CPT/HCPCS: 81001; 81025; 99283